=== PATIENT | male | born 1980 | race Caucasian/White ===

== ENCOUNTER 2017-05-26 18:42 | Emergency (ER) | payer OTHER ==
[2017-05-26] MEDS ORDERED: SODIUM CHLORIDE 0.9% 1,000 ML IV STA (19:10)
--- NOTE | 2017-05-26 19:16 | ED ---
General Adult HPI - General Chief complaint: Chest Pain Stated complaint: Chest Pain Time Seen by Provider: 05/26/17 18:59 Source: patient, RN notes reviewed Mode of arrival: ambulatory Limitations: no limitations - History of Present Illness Initial comments: Chief complaint history of present illness is a 37-year-old male here with a complaint of nondescript and nonspecific chest discomfort mainly to the left side of his chest. The patient is currently on Z-Caleb and high dose steroids for an upper respiratory tract infection. He reports he has occasional on- again off-again sweats and discomfort to the left ear. No nausea no vomiting. - Related Data Home Medications Medication Instructions Recorded Confirmed Atenolol [Tenormin] 25 mg PO QAM 03/03/14 05/26/17 Lisinopril-Hctz 20-12.5 mg 1 tab PO QAM 03/03/14 05/26/17 [Zestoretic 20-12.5] Omeprazole [PriLOSEC] 20 mg PO QAM 03/03/14 05/26/17 Albuterol Inhaler [Ventolin Hfa 1 - 2 puff INHALATION RT-Q4H PRN 04/20/14 Inhaler] traMADol HCl [Ultram] 50 mg PO Q6H PRN 01/31/15 05/26/17 Fluticasone Nasal [place] [Flonase 2 sprays EA NOSTRIL DAILY PRN 05/03/15 05/26/17 Nasal [place]] Ibuprofen [Motrin] 800 mg PO Q8HR PRN 05/03/15 05/26/17 Acetaminophen Tab [Tylenol Tab] 500 - 1,000 mg PO Q4H PRN 05/26/17 05/26/17 Albuterol Nebulized [Ventolin 2.5 mg INHALATION RT-Q4H PRN 05/26/17 05/26/17 Nebulized] Cetirizine HCl [Zyrtec] 10 mg PO DAILY PRN 05/26/17 05/26/17 Fluticasone/Salmeterol [Advair 1 puff INHALATION RT-BID 05/26/17 05/26/17 500-50 Diskus] Montelukast [Singulair] 10 mg PO DAILY 05/26/17 05/26/17 Allergies Allergy/AdvReac Type Severity Reaction Status Date / Time No Known Allergies Allergy Verified 05/26/17 19:37 Review of Systems ROS Statement: Those systems with pertinent positive or pertinent negative responses have been documented in the HPI. Review of systems. No headache or visual acuity changes. On-again off-again discomfort and pressure to the left side of his chest for approximately 4 days. No nausea no vomiting no diarrhea. Occasional diaphoresis. Occasional discomfort because of the left side of his head. No neuro deficits. All systems were reviewed. Past medical problems significant for asthma, GERD, hypertension, sleep apnea with CPAP. Rectal bleeding in the past. Surgeries include EGD, colonoscopy, cholecystectomy. Patient has no known ALLERGIES. He does smoke strongly encouraged stop. Family history, patient was adopted. ROS Other: All systems not noted in ROS Statement are negative. Past Medical History Past Medical History: Asthma, GERD/Reflux, Hypertension, Sleep Apnea/CPAP/BIPAP Additional Past Medical History / Comment(s): rectal bleeding, degenerative disc disease, arthritis History of Any Multi-Drug Resistant Organisms: None Reported Past Surgical History: Cholecystectomy Additional Past Surgical History / Comment(s): EGD/Colonoscopy, pain clinic procedure Past Anesthesia/Blood Transfusion Reactions: Motion Sickness Additional Past Anesthesia/Blood Transfusion Reaction / Comment(s): adopted- family hx unknown Past Psychological History: Depression Smoking Status: Current every day smoker Past Alcohol Use History: None Reported Past Drug Use History: None Reported - Past Family History Mother History Unknown: Yes Additional Family Medical History / Comment(s): client states he was adopted Father Family Medical History: Unable to Obtain Additional Family Medical History / Comment(s): client states he was adopted General Exam - General Exam Comments Initial Comments: General: The patient is awake and alert, here because he's not been feeling well for 3 or 4 days. Currently being treated with a Z-Caleb and steroids for his asthma and upper respiratory tract infectionbronchitis. Vital signs temperature 98.3 pulse 89 respiratory rate 20 pulse ox 99% room air blood pressure 153/71 Eye: Pupils are equal, round and reactive to light, extra-ocular movements are intact ; there is normal conjunctiva bilaterally. No signs of icterus. Ears, nose, mouth and throat: There are moist mucous membranes and no oral lesions. Neck: The neck is supple, there is no tenderness , no anterior cervical lymphadenopathy. Cardiovascular: There is a regular rate and rhythm. No murmur, rub or gallop is appreciated. Respiratory: Lungs are clear to auscultation, respirations are non-labored, breath sounds are equal. No wheezes, stridor, rales, or rhonchi. Gastrointestinal: Soft, non-distended, non-tender abdomen without masses or organomegaly noted. There is no rebound or guarding present. No CVA tenderness. Bowel sounds are unremarkable. palpable lipomas in several areas over the abdomen. The patient is morbidly obese weighs in excess of 330 pounds Back: No complaint of back pain. Musculoskeletal: Normal ROM, no tenderness, There is no pedal edema. There is no calf tenderness or swelling. Sensation intact. Pulses equal bilaterally 2+. Neurological: No neuro deficits Skin: Skin is warm and dry and no rashes or lesions are noted. Limitations: no limitations Course Vital Signs 05/26/17 05/26/17 18:55 19:02 Temperature 98.3 F Pulse Rate 89 Pulse Rate [ 80 Right Radial] Respiratory 20 Rate Blood Pressure 153/71 O2 Sat by Pulse 99 Oximetry EKG Findings - EKG Comments: EKG Findings:: EKG was done and reviewed at 1902 showing normal sinus rhythm no acute ST elevation no ectopy no ischemic changes. Rate 70. It was 154 QRS 96 QT [address] Alves Medical Decision Making - Medical Decision Making Medical decision making; patient's white count is elevated at 17,000, hemoglobin 16 hematocrit of 47.9. INR 1.0, potassium 3.6. Glucose elevated at 314. Patient's BUN is 20 creatinine 0.8 GFR greater than 60. Troponin less than 0.012 and amylase lipase normal limits. X-ray of the chest was done AP and lateral view and reviewed by radiologist findings include there is no focal airspace opacity, pleural effusion, or pneumothorax seen. Cardiac silhouette size within normal limits. The osseous structures are intact. Impression no acute cardiopulmonary process. As read by Dr. Cordova Patient just finishing a Z-Caleb. He has 3 days ago with his prednisone. His blood sugar was discussed and the possibility of it being elevated because of the prednisone but he does have to be evaluated for diabetes mellitus this time. He states he feels better today than he has last 3 days. Admission was offered for observation for the evening but he states he has no discomfort does not want to stay follow-up with his family physician in 48 hours. Strongly advised return emergency room if he has any changes in his condition. - Lab Data Result diagrams: 05/26/17 19:48 05/26/17 19:48 Lab Results 05/26/17 05/26/17 05/26/17 Range/Units 19:48 19:48 19:48 WBC 17.1 H (3.8-10.6) k/uL RBC 4.94 (4.30-5.90) m/uL Hgb 16.2 (13.0-17.5) gm/dL Hct 47.9 (39.0-53.0) % MCV 97.1 (80.0-100.0) fL MCH 32.8 (25.0-35.0) pg MCHC 33.8 (31.0-37.0) g/dL RDW 13.7 (11.5-15.5) % Plt Count 339 (150-450) k/uL Neutrophils % 68 % Lymphocytes % 24 % Monocytes % 6 % Eosinophils % 1 % Basophils % 0 % Neutrophils # 11.6 H (1.3-7.7) k/uL Lymphocytes # 4.1 (1.0-4.8) k/uL Monocytes # 1.0 (0-1.0) k/uL Eosinophils # 0.1 (0-0.7) k/uL Basophils # 0.0 (0-0.2) k/uL PT (9.0-12.0) sec INR (<1.2) APTT (22.0-30.0) sec D-Dimer (<0.60) mg/L FEU Sodium 137 (137-145) mmol/L Potassium 3.6 (3.5-5.1) mmol/L Chloride 98 (98-107) mmol/L Carbon Dioxide 25 (22-30) mmol/L Anion Gap 14 mmol/L BUN 20 (9-20) mg/dL Creatinine 0.80 (0.66-1.25) mg/dL Est GFR (MDRD) Af Amer >60 (>60 ml/min/1.73 sqM) Est GFR (MDRD) Non-Af >60 (>60 ml/min/1.73 sqM) Glucose 314 H (74-99) mg/dL Calcium 8.8 (8.4-10.2) mg/dL Magnesium 1.8 (1.6-2.3) mg/dL Total Bilirubin 0.5 (0.2-1.3) mg/dL AST 25 (17-59) U/L ALT 46 (21-72) U/L Alkaline Phosphatase 87 (38-126) U/L Total Creatine Kinase 46 L (55-170) U/L CK-MB (CK-2) 0.7 (0.0-2.4) ng/mL CK-MB (CK-2) Rel Index 1.5 Troponin I <0.012 (0.000-0.034) ng/mL Total Protein 6.2 L (6.3-8.2) g/dL Albumin 3.9 (3.5-5.0) g/dL Amylase <30 L (30-110) U/L Lipase 81 (23-300) U/L 05/26/17 Range/Units 19:48 WBC (3.8-10.6) k/uL RBC (4.30-5.90) m/uL Hgb (13.0-17.5) gm/dL Hct (39.0-53.0) % MCV (80.0-100.0) fL MCH (25.0-35.0) pg MCHC (31.0-37.0) g/dL RDW (11.5-15.5) % Plt Count (150-450) k/uL Neutrophils % % Lymphocytes % % Monocytes % % Eosinophils % % Basophils % % Neutrophils # (1.3-7.7) k/uL Lymphocytes # (1.0-4.8) k/uL Monocytes # (0-1.0) k/uL Eosinophils # (0-0.7) k/uL Basophils # (0-0.2) k/uL PT 10.6 (9.0-12.0) sec INR 1.0 (<1.2) APTT 22.4 (22.0-30.0) sec D-Dimer 0.18 (<0.60) mg/L FEU Sodium (137-145) mmol/L Potassium (3.5-5.1) mmol/L Chloride (98-107) mmol/L Carbon Dioxide (22-30) mmol/L Anion Gap mmol/L BUN (9-20) mg/dL Creatinine (0.66-1.25) mg/dL Est GFR (MDRD) Af Amer (>60 ml/min/1.73 sqM) Est GFR (MDRD) Non-Af (>60 ml/min/1.73 sqM) Glucose (74-99) mg/dL Calcium (8.4-10.2) mg/dL Magnesium (1.6-2.3) mg/dL Total Bilirubin (0.2-1.3) mg/dL AST (17-59) U/L ALT (21-72) U/L Alkaline Phosphatase (38-126) U/L Total Creatine Kinase (55-170) U/L CK-MB (CK-2) (0.0-2.4) ng/mL CK-MB (CK-2) Rel Index Troponin I (0.000-0.034) ng/mL Total Protein (6.3-8.2) g/dL Albumin (3.5-5.0) g/dL Amylase (30-110) U/L Lipase (23-300) U/L Disposition Clinical Impression: Bronchitis, Atypical chest pain Disposition: HOME SELF-CARE Condition: Fair Instructions: Acute Bronchitis (ED), Chest Pain (ED) Additional Instructions: Complete all medications as prescribed by her family doctor. Follow-up with family doctor in the next 24-48 hours. Return emergency room to give any changes near condition. Referrals: Candelario Potter MD [Primary Care Provider] - 1-2 days Time of Disposition: 22:16
--- NOTE | 2017-05-26 19:40 | XR ---
EXAMINATION TYPE: XR chest 2V DATE OF EXAM: 05/26/2017 COMPARISON: 05/03/2015 HISTORY: Chest heaviness. History of hypertension and asthma. TECHNIQUE: Frontal and lateral views of the chest are obtained. FINDINGS: There is no focal air space opacity, pleural effusion, or pneumothorax seen. The cardiac silhouette size is within normal limits. The osseous structures are intact. IMPRESSION: No acute cardiopulmonary process.
[2017-05-26 19:57] LABS: Basophils % (A) 0 %; CH 34.3; CHCM 35.5; Eosinophils # (A) 0.1 k/uL (0-0.7); Eosinophils % (A) 1 %; HCT 47.9 % (39.0-53.0); HDW 2.45; HGB 16.2 gm/dL (13.0-17.5); Luc # (Auto) 0.27; Luc % (Auto) 2; Lymphocytes # (A) 4.1 k/uL (1.0-4.8); Lymphocytes % (A) 24 %; MCH 32.8 pg (25.0-35.0); MCHC 33.8 g/dL (31.0-37.0); MCV 97.1 fL (80.0-100.0); Mean Platelet Volume 7.8; Monocytes % (A) 6 %; Neutrophils # (A) 11.6 k/uL (1.3-7.7); Neutrophils % (A) 68 %; RBC 4.94 m/uL (4.30-5.90); RDW 13.7 % (11.5-15.5); WBC 17.1 k/uL (3.8-10.6); WBC (Perox) 17.74
[2017-05-26 20:09] LABS: ALT 46 U/L (21-72); AST 25 U/L (17-59); Alkaline Phosphatase 87 U/L (38-126); Amylase <30 U/L (30-110); Anion Gap 14 mmol/L; Blood Urea Nitrogen 20 mg/dL (9-20); Calcium 8.8 mg/dL (8.4-10.2); Carbon Dioxide 25 mmol/L (22-30); Chloride 98 mmol/L (98-107); Glucose 314 mg/dL (74-99); Magnesium 1.8 mg/dL (1.6-2.3); Non-African American GFR(MDRD) >60 (>60 ml/min/1.73 sqM); Potassium 3.6 mmol/L (3.5-5.1); Sodium 137 mmol/L (137-145); Total Bilirubin 0.5 mg/dL (0.2-1.3); Total Protein 6.2 g/dL (6.3-8.2)
[2017-05-26 20:13] LABS: Partial Thromboplastin Time 22.4 sec (22.0-30.0); Prothrombin Time 10.6 sec (9.0-12.0)
[2017-05-26 20:18] LABS: Creatine Kinase 46 U/L (55-170)
[2017-05-26 20:32] LABS: Creatine Kinase MB 0.7 ng/mL (0.0-2.4); Troponin I <0.012 ng/mL (0.000-0.034)
[2017-05-26 22:49] VITALS: BP 143/80; PULSE 65; RESP 18; TEMP 96.9
== END 2017-05-26 22:49 | disposition home or self-care (01) ==
LOC: EC 18:42
DX: J40 Bronchitis, not specified as acute or chronic (principal); R07.89 Other chest pain; D17.79 Benign lipomatous neoplasm of other sites; D72.829 Elevated white blood cell count, unspecified; R73.9 Hyperglycemia, unspecified; I10 Essential (primary) hypertension; K21.9 Gastro-esophageal reflux disease without esophagitis; J45.909 Unspecified asthma, uncomplicated; E66.01 Morbid (severe) obesity due to excess calories; F17.200 Nicotine dependence, unspecified, uncomplicated; Z79.51 Long term (current) use of inhaled steroids; Z79.899 Other long term (current) drug therapy; Z68.42 Body mass index [BMI] 45.0-49.9, adult
CPT/HCPCS: 36415; 71020; 80053; 82150; 82550; 82553; 83690; 83735; 84484; 85025; 85379; 85610; 85730; 93005; 96360; 96361; 99285

== ENCOUNTER 2018-01-27 15:32 | Inpatient (IN) | payer OTHER ==
[2018-01-27] MEDS ORDERED: SODIUM CHLORIDE 0.9% 1,000 ML IV STA ×2 (16:49)
[2018-01-27] MEDS ORDERED: ALBUTEROL NEBULIZED 2.5 MG/3 ML INHALATION STA ×2 (16:49→18:05)
[2018-01-27] MEDS ORDERED: methylPREDNISolone SOD SUCCI 125 MG/2 ML VIAL IV STA (16:49)
[2018-01-27] MEDS ORDERED: IPRATROPIUM 0.5 MG/2.5 ML NEBU INHALATION STA ×2 (16:49→18:05)
[2018-01-27] MEDS ORDERED: AZITHROMYCIN 500 MG in SODIUM CHLORIDE 0.9% 250 ML IVPB STA (16:52)
[2018-01-27 17:07] LABS: Basophils % (A) 0 %; Eosinophils % (A) 0 %; HCT 45.5 % (39.0-53.0); HGB 16.2 gm/dL (13.0-17.5); Lymphocytes # (A) 0.6 k/uL (1.0-4.8); Lymphocytes % (A) 6 %; MCH 32.8 pg (25.0-35.0); MCHC 35.5 g/dL (31.0-37.0); MCV 92.4 fL (80.0-100.0); Mean Platelet Volume 7.5; Monocytes # (A) 0.3 k/uL (0-1.0); Monocytes % (A) 3 %; Neutrophils # (A) 7.8 k/uL (1.3-7.7); Neutrophils % (A) 89 %; Platelet Count 200 k/uL (150-450); RBC 4.93 m/uL (4.30-5.90); RDW 13.2 % (11.5-15.5); WBC 8.8 k/uL (3.8-10.6)
--- NOTE | 2018-01-27 17:16 | XR ---
EXAMINATION TYPE: XR chest 1V portable DATE OF EXAM: 01/27/2018 COMPARISON: 05/26/2017 HISTORY: Short of breath TECHNIQUE: Single frontal view of the chest is obtained. FINDINGS: Heart and mediastinum are normal. Lungs are clear. Diaphragm is normal. Bony thorax is int act. IMPRESSION: Normal chest. There is clearing of a small infiltrate at the left lung base compared to old exam.
[2018-01-27 17:17] LABS: ALT 49 U/L (21-72); AST 35 U/L (17-59); Alkaline Phosphatase 94 U/L (38-126); Anion Gap 13 mmol/L; Blood Urea Nitrogen 15 mg/dL (9-20); Calcium 9.2 mg/dL (8.4-10.2); Carbon Dioxide 27 mmol/L (22-30); Chloride 96 mmol/L (98-107); Glucose 356 mg/dL (74-99); Magnesium 1.7 mg/dL (1.6-2.3); Potassium 4.2 mmol/L (3.5-5.1); Sodium 136 mmol/L (137-145); Total Bilirubin 0.4 mg/dL (0.2-1.3); Total Protein 6.8 g/dL (6.3-8.2)
[2018-01-27 17:25] LABS: D-Dimer 0.23 mg/L FEU (<0.60); Partial Thromboplastin Time 23.7 sec (22.0-30.0)
[2018-01-27 17:27] LABS: Creatine Kinase 71 U/L (55-170)
--- NOTE | 2018-01-27 17:38 | ED ---
General Adult HPI - General Chief complaint: Shortness of Breath Stated complaint: [place] Time Seen by Provider: 01/27/18 16:14 Source: patient, RN notes reviewed, old records reviewed Mode of arrival: ambulatory Limitations: no limitations - History of Present Illness Initial comments: This is a 37-year-old male to the ER for evaluation. Patient resents today for evaluation regards to shortness of breath severe shortness of breath no chest pain. Patient has history of severe asthma. States she's recently been on outpatient treatment with no improvement. Denies any fevers no recent travel history no sick contacts. Patient has no prior hospitalizations for asthma - Related Data Home Medications Medication Instructions Recorded Confirmed Lisinopril-Hctz 20-12.5 mg 1 tab PO QAM 03/03/14 01/27/18 [Zestoretic 20-12.5] Omeprazole [PriLOSEC] 20 mg PO QAM 03/03/14 01/27/18 Albuterol Inhaler [Ventolin Hfa 1 - 2 puff INHALATION RT-Q4H PRN 04/20/14 Inhaler] Fluticasone Nasal [place] [Flonase 2 sprays EA NOSTRIL DAILY PRN 05/03/15 01/27/18 Nasal [place]] Ibuprofen [Motrin] 800 mg PO Q8HR PRN 05/03/15 01/27/18 Albuterol Nebulized [Ventolin 2.5 mg INHALATION RT-Q4H PRN 05/26/17 01/27/18 Nebulized] Cetirizine HCl [Zyrtec] 10 mg PO DAILY PRN 05/26/17 01/27/18 Fluticasone/Salmeterol [Advair 1 puff INHALATION RT-BID 05/26/17 01/27/18 500-50 Diskus] Montelukast [Singulair] 10 mg PO DAILY 05/26/17 01/27/18 Atenolol [Tenormin] 50 mg PO DAILY 01/27/18 01/27/18 Azithromycin [Zithromax Z-pack] See Taper PO DIRECTED 01/27/18 01/27/18 glipiZIDE XL [Glucotrol Xl] 5 mg PO DAILY 01/27/18 01/27/18 predniSONE 40 mg PO DAILY 01/27/18 01/27/18 Allergies Allergy/AdvReac Type Severity Reaction Status Date / Time No Known Allergies Allergy Verified 01/27/18 16:32 Review of Systems ROS Statement: Those systems with pertinent positive or pertinent negative responses have been documented in the HPI. ROS Other: All systems not noted in ROS Statement are negative. Past Medical History Past Medical History: Asthma, COPD, GERD/Reflux, Hypertension, Sleep Apnea/CPAP/ BIPAP Additional Past Medical History / Comment(s): rectal bleeding, degenerative disc disease, arthritis History of Any Multi-Drug Resistant Organisms: None Reported Past Surgical History: Cholecystectomy Additional Past Surgical History / Comment(s): EGD/Colonoscopy, pain clinic procedure Past Anesthesia/Blood Transfusion Reactions: Motion Sickness Additional Past Anesthesia/Blood Transfusion Reaction / Comment(s): adopted- family hx unknown Past Psychological History: Depression Smoking Status: Current every day smoker Past Alcohol Use History: None Reported Past Drug Use History: None Reported - Past Family History Mother History Unknown: Yes Additional Family Medical History / Comment(s): client states he was adopted Father Family Medical History: Unable to Obtain Additional Family Medical History / Comment(s): client states he was adopted General Exam Limitations: no limitations General appearance: alert, in no apparent distress, anxious Head exam: Present: atraumatic, normocephalic, normal inspection Eye exam: Present: normal appearance, PERRL, EOMI. Absent: scleral icterus, conjunctival injection, periorbital swelling ENT exam: Present: normal exam, mucous membranes moist Neck exam: Present: normal inspection. Absent: tenderness, meningismus, lymphadenopathy Respiratory exam: Present: normal lung sounds bilaterally, wheezes. Absent: respiratory distress, rales, rhonchi, stridor Cardiovascular Exam: Present: regular rate, normal rhythm, tachycardia, normal heart sounds. Absent: systolic murmur, diastolic murmur, rubs, gallop, clicks GI/Abdominal exam: Present: soft, normal bowel sounds. Absent: distended, tenderness, guarding, rebound, rigid Extremities exam: Present: normal inspection, full ROM, normal capillary refill. Absent: tenderness, pedal edema, joint swelling, calf tenderness Back exam: Present: normal inspection Neurological exam: Present: alert, oriented X3, CN II-XII intact Psychiatric exam: Present: normal affect, normal mood Skin exam: Present: warm, dry, intact, normal color. Absent: rash Course Vital Signs 01/27/18 01/27/18 01/27/18 15:43 16:02 16:32 Temperature 99.3 F Pulse Rate 106 H 96 Respiratory 24 23 19 Rate Blood Pressure 126/70 172/83 O2 Sat by Pulse 87 L 98 Oximetry 01/27/18 01/27/18 01/27/18 17:31 17:44 17:53 Temperature Pulse Rate 94 92 94 Respiratory 19 Rate Blood Pressure 140/69 O2 Sat by Pulse 94 L Oximetry 01/27/18 17:59 Temperature Pulse Rate 98 Respiratory Rate Blood Pressure O2 Sat by Pulse Oximetry - Reevaluation(s) Reevaluation #1: 01/27/18 18:06 Patient has no improvement up prolonged breathing treatment, patient attempted airway from bathroom to bed and became severely hypoxic EKG Findings - EKG Comments: EKG Findings:: EKG shows normal sinus rhythm rate of 96, [place] 160, QRS 90, QTc 502 Medical Decision Making - Medical Decision Making 37 male the ER for evaluation of severe hypoxia secondary to COPD, asthma, history of smoking. Patient to be admitted continuous breathing treatments and steroids - Lab Data Result diagrams: 01/27/18 16:25 01/27/18 16:25 Lab Results 01/27/18 01/27/18 01/27/18 Range/Units 16:25 16:25 16:25 WBC 8.8 (3.8-10.6) k/uL RBC 4.93 (4.30-5.90) m/uL Hgb 16.2 (13.0-17.5) gm/dL Hct 45.5 (39.0-53.0) % MCV 92.4 (80.0-100.0) fL MCH 32.8 (25.0-35.0) pg MCHC 35.5 (31.0-37.0) g/dL RDW 13.2 (11.5-15.5) % Plt Count 200 (150-450) k/uL Neutrophils % 89 % Lymphocytes % 6 % Monocytes % 3 % Eosinophils % 0 % Basophils % 0 % Neutrophils # 7.8 H (1.3-7.7) k/uL Lymphocytes # 0.6 L (1.0-4.8) k/uL Monocytes # 0.3 (0-1.0) k/uL Eosinophils # 0.0 (0-0.7) k/uL Basophils # 0.0 (0-0.2) k/uL PT (9.0-12.0) sec INR (<1.2) APTT (22.0-30.0) sec D-Dimer (<0.60) mg/L FEU Sodium 136 L (137-145) mmol/L Potassium 4.2 (3.5-5.1) mmol/L Chloride 96 L (98-107) mmol/L Carbon Dioxide 27 (22-30) mmol/L Anion Gap 13 mmol/L BUN 15 (9-20) mg/dL Creatinine 0.59 L (0.66-1.25) mg/dL Est GFR (CKD-EPI)AfAm >90 (>60 ml/min/1.73 sqM) Est GFR (CKD-EPI)NonAf >90 (>60 ml/min/1.73 sqM) Glucose 356 H (74-99) mg/dL Calcium 9.2 (8.4-10.2) mg/dL Magnesium 1.7 (1.6-2.3) mg/dL Total Bilirubin 0.4 (0.2-1.3) mg/dL AST 35 (17-59) U/L ALT 49 (21-72) U/L Alkaline Phosphatase 94 (38-126) U/L Total Creatine Kinase 71 (55-170) U/L CK-MB (CK-2) 0.8 (0.0-2.4) ng/mL CK-MB (CK-2) Rel Index 1.1 Troponin I <0.012 (0.000-0.034) ng/mL NT-Pro-B Natriuret Pep pg/mL Total Protein 6.8 (6.3-8.2) g/dL Albumin 4.0 (3.5-5.0) g/dL 01/27/18 01/27/18 Range/Units 16:25 16:25 WBC (3.8-10.6) k/uL RBC (4.30-5.90) m/uL Hgb (13.0-17.5) gm/dL Hct (39.0-53.0) % MCV (80.0-100.0) fL MCH (25.0-35.0) pg MCHC (31.0-37.0) g/dL RDW (11.5-15.5) % Plt Count (150-450) k/uL Neutrophils % % Lymphocytes % % Monocytes % % Eosinophils % % Basophils % % Neutrophils # (1.3-7.7) k/uL Lymphocytes # (1.0-4.8) k/uL Monocytes # (0-1.0) k/uL Eosinophils # (0-0.7) k/uL Basophils # (0-0.2) k/uL PT 10.0 (9.0-12.0) sec INR 1.0 (<1.2) APTT 23.7 (22.0-30.0) sec D-Dimer 0.23 (<0.60) mg/L FEU Sodium (137-145) mmol/L Potassium (3.5-5.1) mmol/L Chloride (98-107) mmol/L Carbon Dioxide (22-30) mmol/L Anion Gap mmol/L BUN (9-20) mg/dL Creatinine (0.66-1.25) mg/dL Est GFR (CKD-EPI)AfAm (>60 ml/min/1.73 sqM) Est GFR (CKD-EPI)NonAf (>60 ml/min/1.73 sqM) Glucose (74-99) mg/dL Calcium (8.4-10.2) mg/dL Magnesium (1.6-2.3) mg/dL Total Bilirubin (0.2-1.3) mg/dL AST (17-59) U/L ALT (21-72) U/L Alkaline Phosphatase (38-126) U/L Total Creatine Kinase (55-170) U/L CK-MB (CK-2) (0.0-2.4) ng/mL CK-MB (CK-2) Rel Index Troponin I (0.000-0.034) ng/mL NT-Pro-B Natriuret Pep 20 pg/mL Total Protein (6.3-8.2) g/dL Albumin (3.5-5.0) g/dL - Radiology Data Radiology results: report reviewed (Chest x-rays negative), image reviewed Critical Care Time Critical Care Time: Yes Total Critical Care Time: 31 Disposition Clinical Impression: Bronchitis, Acute bronchitis with bronchospasm, Tachypnea, Hypoxia, Acute exacerbation of chronic obstructive airways disease, Asthma with status asthmaticus Disposition: ADMITTED IP TO THIS HOSP Condition: Serious Referrals: Carlos Henry MD [Primary Care Provider] - 1-2 days
[2018-01-27 17:40] LABS: Creatine Kinase MB 0.8 ng/mL (0.0-2.4); Troponin I <0.012 ng/mL (0.000-0.034)
[2018-01-27 18:45] LABS: Glucose,Whole Blood 448 mg/dL (75-99)
[2018-01-27] MEDS ORDERED: INSULIN REGULAR 100 UNIT/ML VIAL IV ONE (19:00)
[2018-01-27] MEDS: SODIUM CHLORIDE 0.9% 1,000 ML IV SCH ×2 (19:04→22:46)
[2018-01-27] MEDS: IPRATROPIUM-ALBUTEROL 3 ML NEB INHALATION SCH (19:56)
[2018-01-27 20:28] LABS: Glucose,Whole Blood 456 mg/dL (75-99)
[2018-01-27] MEDS: INSULIN ASPART 100 UNIT/ML 1 ML 10 ML VIAL SQ SCH (21:54)
[2018-01-27] MEDS ORDERED: INSULIN ASPART 100 UNIT/ML 1 ML 10 ML VIAL SQ ONE ×2 (22:00→23:47)
[2018-01-27] MEDS: PANTOPRAZOLE 40 MG/10 ML VIAL IVP SCH (22:20)
[2018-01-27] MEDS: INSULIN DETEMIR 100 UNIT/ML 10 ML VIAL SQ SCH (22:20)
[2018-01-27] MEDS: SYMBICORT 160-4.5 MCG INHALER INHALATION SCH (23:31)
[2018-01-27] MEDS: IPRATROPIUM-ALBUTEROL 3 ML NEB INHALATION PRN (23:31)
[2018-01-27 23:43] LABS: Glucose,Whole Blood 411 mg/dL (75-99)
[2018-01-28] MEDS: methylPREDNISolone SOD SUCCI 125 MG/2 ML VIAL IV SCH ×2 (00:12→05:35)
[2018-01-28 01:17] LABS: Glucose,Whole Blood 340 mg/dL (75-99)
[2018-01-28] MEDS ORDERED: INSULIN ASPART 100 UNIT/ML 1 ML 10 ML VIAL SQ ONE (01:17)
[2018-01-28 04:19] LABS: Glucose,Whole Blood 267 mg/dL (75-99)
[2018-01-28] MEDS: IPRATROPIUM-ALBUTEROL 3 ML NEB INHALATION SCH ×4 (05:53→19:36)
[2018-01-28 07:10] LABS: Glucose,Whole Blood 251 mg/dL (75-99)
[2018-01-28 07:12] LABS: Basophils % (A) 0 %; Eosinophils % (A) 0 %; HCT 45.9 % (39.0-53.0); HGB 15.9 gm/dL (13.0-17.5); Lymphocytes # (A) 0.6 k/uL (1.0-4.8); Lymphocytes % (A) 11 %; MCH 32.4 pg (25.0-35.0); MCHC 34.5 g/dL (31.0-37.0); MCV 93.8 fL (80.0-100.0); Monocytes # (A) 0.3 k/uL (0-1.0); Monocytes % (A) 4 %; Neutrophils # (A) 4.7 k/uL (1.3-7.7); Neutrophils % (A) 83 %; Platelet Count 207 k/uL (150-450); WBC 5.7 k/uL (3.8-10.6)
[2018-01-28 07:27] LABS: Anion Gap 11 mmol/L; Blood Urea Nitrogen 14 mg/dL (9-20); Calcium 8.7 mg/dL (8.4-10.2); Carbon Dioxide 28 mmol/L (22-30); Chloride 104 mmol/L (98-107); Glucose 249 mg/dL (74-99); Potassium 4.7 mmol/L (3.5-5.1); Sodium 143 mmol/L (137-145)
[2018-01-28] MEDS ORDERED: INSULIN ASPART 100 UNIT/ML 1 ML 10 ML VIAL SQ SCH (07:30)
[2018-01-28] MEDS: SYMBICORT 160-4.5 MCG INHALER INHALATION SCH ×2 (07:39→19:34)
[2018-01-28] MEDS: INSULIN ASPART 100 UNIT/ML 1 ML 10 ML VIAL SQ SCH ×4 (08:02→21:21)
[2018-01-28] MEDS: AZITHROMYCIN 500 MG TAB PO SCH (08:03)
[2018-01-28] MEDS: NICOTINE 21MG/24HR PATCH TRANSDERM SCH (08:03)
--- NOTE | 2018-01-28 10:50 | P.HPIM ---
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 Patient the symptoms are brought up by season change and upper respiratory illness leading to bronchitis. Review of Systems REVIEW OF SYSTEMS: CONSTITUTIONAL: No fever, no malaise, no fatigue. HEENT: No recent visual problems or hearing problems. Denied any sore throat. CARDIOVASCULAR: No chest pain, orthopnea, PND, no palpitations, no syncope. PULMONARY: As mentioned in HPI GASTROINTESTINAL: No diarrhea, no nausea, no vomiting, no abdominal pain. Normoactive bowel sounds. NEUROLOGICAL: No headaches, no weakness, no numbness. HEMATOLOGICAL: Denies any bleeding or petechiae. GENITOURINARY: Denies any burning micturition, frequency, or urgency. MUSCULOSKELETAL/RHEUMATOLOGICAL: Denies any joint pain, swelling, or any muscle pain. ENDOCRINE: Denies any polyuria or polydipsia. The rest of the 14-point review of systems is negative. Past Medical History Past Medical History: Asthma, COPD, Diabetes Mellitus, GERD/Reflux, Hypertension , Pneumonia, Sleep Apnea/CPAP/BIPAP Additional Past Medical History / Comment(s): rectal bleeding(internal hemorrhoids), degenerative disc disease, arthritis, no cpap used History of Any Multi-Drug Resistant Organisms: None Reported Past Surgical History: Cholecystectomy Additional Past Surgical History / Comment(s): EGD/Colonoscopy, pain clinic procedure Past Anesthesia/Blood Transfusion Reactions: Motion Sickness Additional Past Anesthesia/Blood Transfusion Reaction / Comment(s): adopted- family hx unknown Smoking Status: Current every day smoker - Past Family History Mother History Unknown: Yes Additional Family Medical History / Comment(s): client states he was adopted Father Family Medical History: Unable to Obtain Additional Family Medical History / Comment(s): client states he was adopted Medications and Allergies Home Medications Medication Instructions Recorded Confirmed Type Lisinopril-Hctz 20-12.5 mg 1 tab PO QAM 03/03/14 01/27/18 History [Zestoretic 20-12.5] Omeprazole [PriLOSEC] 20 mg PO QAM 03/03/14 01/27/18 History Albuterol Inhaler [Ventolin Hfa 1 - 2 puff INHALATION RT-Q4H PRN 04/20/14 History Inhaler] Fluticasone Nasal [place] [Flonase 2 sprays EA NOSTRIL DAILY PRN 05/03/15 History Nasal [place]] Ibuprofen [Motrin] 800 mg PO Q8HR PRN 05/03/15 01/27/18 History Albuterol Nebulized [Ventolin 2.5 mg INHALATION RT-Q4H PRN 05/26/17 01/27/18 History Nebulized] Cetirizine HCl [Zyrtec] 10 mg PO DAILY PRN 05/26/17 01/27/18 History Fluticasone/Salmeterol [Advair 1 puff INHALATION RT-BID 05/26/17 01/27/18 History 500-50 Diskus] Montelukast [Singulair] 10 mg PO DAILY 05/26/17 01/27/18 History Atenolol [Tenormin] 50 mg PO DAILY 01/27/18 01/27/18 History Azithromycin [Zithromax Z-pack] See Taper PO DIRECTED 01/27/18 01/27/18 History glipiZIDE XL [Glucotrol Xl] 5 mg PO DAILY 01/27/18 01/27/18 History predniSONE 40 mg PO DAILY 01/27/18 01/27/18 History Allergies Allergy/AdvReac Type Severity Reaction Status Date / Time No Known Allergies Allergy Verified 01/27/18 16:32 Physical Exam Vitals: Vital Signs Temp Pulse Pulse Resp BP BP Pulse Ox 01/28/18 09:00 71 01/28/18 07:00 96.8 F L 74 20 130/83 92 L 01/28/18 06:08 74 01/28/18 05:55 74 01/27/18 23:38 96 01/27/18 23:27 96 01/27/18 22:43 18 93 L 01/27/18 22:42 97 18 147/72 88 L 01/27/18 21:27 98.2 F 101 H 20 142/76 91 L 01/27/18 20:08 92 01/27/18 19:58 93 01/27/18 17:59 98 01/27/18 17:53 94 19 140/69 94 L 01/27/18 17:44 92 01/27/18 17:31 94 01/27/18 16:32 96 19 172/83 98 01/27/18 16:02 23 01/27/18 15:43 99.3 F 106 H 24 126/70 87 L Intake and Output 01/27/18 01/28/18 01/28/18 22:59 06:59 14:59 Intake Total 350 500 Balance 350 500 Intake: IV 500 Sodium Chloride 0.9% 1, 500 000 ml @ 100 mls/hr IV . Q10H J [facility] Rx#:[id number] Oral 350 Other: Voiding Method Toilet Toilet # Voids 1 1 Weight 138.346 kg PHYSICAL EXAMINATION: GENERAL: The patient is alert and oriented x3, not in any acute distress. Well developed, well nourished. HEENT: Pupils are round and equally reacting to light. EOMI. No scleral icterus. No conjunctival pallor. Normocephalic, atraumatic. No pharyngeal erythema. No thyromegaly. CARDIOVASCULAR: S1 and S2 present. No murmurs, rubs, or gallops. PULMONARY: Significant limited air entry into bilateral lung [place] minimal expiratory wheezing was appreciated no crackles were appreciated. ABDOMEN: Soft, nontender, nondistended, normoactive bowel sounds. No palpable organomegaly. MUSCULOSKELETAL: No joint swelling or deformity. EXTREMITIES: No cyanosis, clubbing, or pedal edema. NEUROLOGICAL: Gross neurological examination did not reveal any focal deficits. SKIN: No rashes. Results CBC & Chem 7: 01/28/18 06:36 01/28/18 06:36 Labs: Abnormal Lab Results - Last 24 Hours (Table) 01/27/18 01/27/18 01/27/18 Range/Units 16:25 16:25 18:42 Neutrophils # 7.8 H (1.3-7.7) k/uL Lymphocytes # 0.6 L (1.0-4.8) k/uL Sodium 136 L (137-145) mmol/L Chloride 96 L (98-107) mmol/L Creatinine 0.59 L (0.66-1.25) mg/dL Glucose 356 H (74-99) mg/dL POC Glucose (mg/dL) 448 H (75-99) mg/dL 01/27/18 01/27/18 01/28/18 Range/Units 20:23 23:41 01:15 Neutrophils # (1.3-7.7) k/uL Lymphocytes # (1.0-4.8) k/uL Sodium (137-145) mmol/L Chloride (98-107) mmol/L Creatinine (0.66-1.25) mg/dL Glucose (74-99) mg/dL POC Glucose (mg/dL) 456 H 411 H 340 H (75-99) mg/dL 01/28/18 01/28/18 01/28/18 Range/Units 04:16 06:36 06:36 Neutrophils # (1.3-7.7) k/uL Lymphocytes # 0.6 L (1.0-4.8) k/uL Sodium (137-145) mmol/L Chloride (98-107) mmol/L Creatinine 0.50 L (0.66-1.25) mg/dL Glucose 249 H (74-99) mg/dL POC Glucose (mg/dL) 267 H (75-99) mg/dL 01/28/18 Range/Units 07:07 Neutrophils # (1.3-7.7) k/uL Lymphocytes # (1.0-4.8) k/uL Sodium (137-145) mmol/L Chloride (98-107) mmol/L Creatinine (0.66-1.25) mg/dL Glucose (74-99) mg/dL POC Glucose (mg/dL) 251 H (75-99) mg/dL Thrombosis Risk Factor Assmnt - Choose All That Apply Any of the Below Risk Factors Present?: Yes Each Factor Represents 1 point: Abnormal pulmonary function (COPD), Obesity ( BMI >25) Other Risk Factors: No Other congenital or acquired thrombophilia - If yes, enter type in comment: No Thrombosis Risk Factor Assessment Total Risk Factor Score: 2 Thrombosis Risk Factor Assessment Level: Low Risk Assessment and Plan Plan: -Acute hypercapnic respiratory failure: Most probably Secondary to COPD exacerbation with contribution from the 60 lung disease and sleep apnea, patient does have history of asthma and seasonal ALLERGIES. Patient is on systemic steroids because of the elevated blood sugars are cut down the IV steroids to 40 twice a day and continue with inhalational treatments. -Gastroesophageal reflux disease: Patient is on Prilosec which will be continued -Hypertension patient will be resumed on home medication which is lisinopril and hydrochlorothiazide combination -Multiple seasonal ALLERGIES -Type 2 diabetes mellitus highly elevated blood sugars patient will be temporarily on insulin regimen with long-acting insulin and sliding scale for systemic steroids as his blood sugars are expected to go higher with the systemic strides -Morbid obesity sleep apnea: Counseling regarding weight loss was provided and counseling regarding nicotine cessation lifestyle modifications was provided
[2018-01-28 11:21] LABS: Glucose,Whole Blood 315 mg/dL (75-99)
[2018-01-28] MEDS: PANTOPRAZOLE 40 MG/10 ML VIAL IVP SCH (12:27)
[2018-01-28] MEDS ORDERED: methylPREDNISolone SOD SUCCI 125 MG/2 ML VIAL IV SCH (16:00)
--- NOTE | 2018-01-28 16:51 | P.CNPUL ---
History of Present Illness Consult date: 01/28/18 Requesting physician: Everton Sainz Reason for consult: dyspnea, hypoxemia, other Chief complaint: Hypoxemic respiratory failure, shortness of breath, exacerbation of asthma History of present illness: Kvng is a 37-year-old white male patient of Dr. Henry who presented to the emergency department on 01/27/2018 at 1737 with complaints of several days' history of increasing shortness of breath. His symptoms started with an upper respiratory infection, sinus congestion, green nasal drainage on Thursday. Patient's was seen by a nurse practitioner Violetta Perrin at Dr. Henry's office, and was given a prescription of prednisone, and azithromycin. However by Thursday patient started to experience fever and chills, progressive weakness, progressive shortness of breath. Patient returned to his PCPs office on Thursday, and was found to have a pulse ox of 82% on room air, and was directed to the emergency room for further evaluation and treatment. Patient is a current smoker, smokes a pack a day, for 18 years. He was diagnosed with bronchial asthma in his childhood, was never intubated, but was hospitalized 3- 4 times in his lifetime with the last time being 2 years ago. His common triggers include seasonal change, exercise, dust, cold. He borrows his mom's nebulizer machine, he has a Flonase nasal spray, Ventolin inhaler, and Advair 500/50, and albuterol nebulized treatments for his maintenance medications. He is also on Singulair 10 mg by mouth daily and omeprazole 20 mg by mouth every morning. 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 Also has underlying history of sleep apnea, but does not use CPAP machine because he had no insurance coverage at that time. His last polysomnography test was on 07/04/2014, at that time his apnea/hypopnea score index was 16.2 with lowest oxygen saturation of 75%. Patient has a history of morbid obesity, and has been evaluated for Sravan-en-Y gastric bypass surgery. Other medical history includes osteoarthritis of the lower back secondary to morbid obesity, bilateral knees, hypertension, GERD/reflux, depression, chronic sinusitis. Chest x-ray completed in in the emergency room on 01/27/2018 shows normal chest. EKG showed normal sinus rhythm. Afebrile, did have subjective fever or chills at home. Was hypoxemic on presentation with O2 sat at 87% on room air, currently on 4 L per nasal cannula with O2 sat 95%. Influenza screen was negative, lab work was negative for any evidence of leukocytosis, WBC is 8.8, d- dimer was negative at 0.23, no coagulopathy. Sodium is 136, potassium is 4.2, chloride is 96, BUN is 15, creatinine 0.59. Patient's glucose was 356 on admission. Liver enzymes were all within normal limits, troponins and cardiac enzymes were negative 1, proBNP was 20. Lung sounds show very diminished air entry bilaterally, hardly any air movement noted over left lower lung. There is prolongation of the expiratory phase noted. Patient denies any chest wall pain, does have a congested loose cough, but unable to bring up any sputum. Was started on IV Zithromax, nebulized treatments, Symbicort, IV Solu-Medrol at 40 mg IV twice a day. Patient was given a liter bolus of 0.9 normal saline in the emergency room, and his maintenance IV fluids are 0.9 normal saline at a rate of 100 ML per hour. Currently is awake and alert, appears comfortable at rest, denies any significant dyspnea at rest. Review of Systems All systems: negative Constitutional: Denies chills, Denies fever Eyes: denies blurred vision, denies pain Ears, nose, mouth and throat: Reports nasal congestion, Reports nasal discharge , Denies headache, Denies sore throat Cardiovascular: Denies chest pain, Denies shortness of breath Respiratory: Reports congestion, Reports dyspnea, Reports sleep apnea, Denies cough Gastrointestinal: Denies abdominal pain, Denies diarrhea, Denies nausea, Denies vomiting Musculoskeletal: Denies myalgias Integumentary: Denies pruritus, Denies rash Neurological: Denies numbness, Denies weakness Psychiatric: Denies anxiety, Denies depression Endocrine: Denies fatigue, Denies weight change Past Medical History Past Medical History: Asthma, Diabetes Mellitus, GERD/Reflux, Hypertension, Pneumonia, Sleep Apnea/CPAP/BIPAP Additional Past Medical History / Comment(s): rectal bleeding(internal hemorrhoids), degenerative disc disease, arthritis, no cpap used History of Any Multi-Drug Resistant Organisms: None Reported Past Surgical History: Cholecystectomy Additional Past Surgical History / Comment(s): EGD/Colonoscopy, pain clinic procedure Past Anesthesia/Blood Transfusion Reactions: Motion Sickness Additional Past Anesthesia/Blood Transfusion Reaction / Comment(s): adopted- family hx unknown Past Psychological History: Depression Smoking Status: Current every day smoker - Past Family History Mother History Unknown: Yes Additional Family Medical History / Comment(s): client states he was adopted Father Family Medical History: Unable to Obtain Additional Family Medical History / Comment(s): client states he was adopted Medications and Allergies Home Medications Medication Instructions Recorded Confirmed Type Lisinopril-Hctz 20-12.5 mg 1 tab PO QAM 03/03/14 01/27/18 History [Zestoretic 20-12.5] Omeprazole [PriLOSEC] 20 mg PO QAM 03/03/14 01/27/18 History Albuterol Inhaler [Ventolin Hfa 1 - 2 puff INHALATION RT-Q4H PRN 04/20/14 History Inhaler] Fluticasone Nasal [place] [Flonase 2 sprays EA NOSTRIL DAILY PRN 05/03/15 History Nasal [place]] Ibuprofen [Motrin] 800 mg PO Q8HR PRN 05/03/15 01/27/18 History Albuterol Nebulized [Ventolin 2.5 mg INHALATION RT-Q4H PRN 05/26/17 01/27/18 History Nebulized] Cetirizine HCl [Zyrtec] 10 mg PO DAILY PRN 05/26/17 01/27/18 History Fluticasone/Salmeterol [Advair 1 puff INHALATION RT-BID 05/26/17 01/27/18 History 500-50 Diskus] Montelukast [Singulair] 10 mg PO DAILY 05/26/17 01/27/18 History Atenolol [Tenormin] 50 mg PO DAILY 01/27/18 01/27/18 History Azithromycin [Zithromax Z-pack] See Taper PO DIRECTED 01/27/18 01/27/18 History glipiZIDE XL [Glucotrol Xl] 5 mg PO DAILY 01/27/18 01/27/18 History predniSONE 40 mg PO DAILY 01/27/18 01/27/18 History Allergies Allergy/AdvReac Type Severity Reaction Status Date / Time No Known Allergies Allergy Verified 01/27/18 16:32 Physical Exam Vitals: Vital Signs Temp Pulse Pulse Resp BP BP Pulse Ox 01/28/18 15:30 76 01/28/18 15:20 76 01/28/18 15:10 97.6 F 80 20 145/72 95 01/28/18 11:26 80 01/28/18 11:12 80 01/28/18 10:59 81 24 140/81 90 L 01/28/18 09:00 71 01/28/18 07:00 96.8 F L 74 20 130/83 92 L 01/28/18 06:08 74 01/28/18 05:55 74 01/27/18 23:38 96 01/27/18 23:27 96 01/27/18 22:43 18 93 L 01/27/18 22:42 97 18 147/72 88 L 01/27/18 21:27 98.2 F 101 H 20 142/76 91 L 01/27/18 20:08 92 01/27/18 19:58 93 01/27/18 17:59 98 01/27/18 17:53 94 19 140/69 94 L 01/27/18 17:44 92 01/27/18 17:31 94 01/27/18 16:32 96 19 172/83 98 Intake and Output 01/28/18 01/28/18 01/28/18 06:59 14:59 22:59 Intake Total 500 1200 Balance 500 1200 Intake: IV 500 600 Sodium Chloride 0.9% 1, 500 600 000 ml @ 100 mls/hr IV . Q10H [facility] Rx#:[id number] Oral 600 Other: Voiding Method Toilet # Voids 1 3 GENERAL EXAM: Alert, pleasant 37-year-old obese white male, comfortable in no apparent distress. HEAD: Normocephalic/atraumatic. EYES: Normal reaction of pupils, equal size. Conjunctiva pink, sclera white. NOSE: Clear with pink turbinates. THROAT: No erythema or exudates. NECK: No masses, no JVD, no thyroid enlargement, no adenopathy. CHEST: No chest wall deformity. Symmetrical expansion. LUNGS: Decreased air movement noted bilaterally, more so over left lower lobe. Prolongation of the expiratory phase, patient has congested nonproductive cough. CVS: Regular rate and rhythm, normal S1 and S2, no gallops, no murmurs, no rubs ABDOMEN: Soft, nontender. No hepatosplenomegaly, normal bowel sounds, no guarding or rigidity. EXTREMITIES: No clubbing, no edema, no cyanosis, 2+ pulses and upper and lower extremities. MUSCULOSKELETAL: Muscle strength and tone normal. SPINE: No scoliosis or deformity SKIN: No rashes CENTRAL NERVOUS SYSTEM: Alert and oriented -3. No focal deficits, tone is normal in all 4 extremities. PSYCHIATRIC: Alert and oriented -3. Appropriate affect. Intact judgment and insight. Results - Laboratory Findings CBC and BMP: 01/28/18 06:36 01/28/18 06:36 PT/INR, D-dimer PT 10.0 sec (9.0-12.0) 01/27/18 16:25 INR 1.0 (<1.2) 01/27/18 16:25 D-Dimer 0.23 mg/L FEU (<0.60) 01/27/18 16:25 Abnormal lab findings: Abnormal Labs 01/27/18 01/27/18 01/27/18 16:25 16:25 18:42 Neutrophils # 7.8 H Lymphocytes # 0.6 L Sodium 136 L Chloride 96 L Creatinine 0.59 L Glucose 356 H POC Glucose (mg/dL) 448 H 01/27/18 01/27/18 01/28/18 20:23 23:41 01:15 Neutrophils # Lymphocytes # Sodium Chloride Creatinine Glucose POC Glucose (mg/dL) 456 H 411 H 340 H 01/28/18 01/28/18 01/28/18 04:16 06:36 06:36 Neutrophils # Lymphocytes # 0.6 L Sodium Chloride Creatinine 0.50 L Glucose 249 H POC Glucose (mg/dL) 267 H 01/28/18 01/28/18 07:07 11:19 Neutrophils # Lymphocytes # Sodium Chloride Creatinine Glucose POC Glucose (mg/dL) 251 H 315 H - Diagnostic Findings Chest x-ray: report reviewed Additional studies: Twelve-lead EKG reviewed Assessment and Plan Plan: Assessment: #1. Acute hypoxic respiratory failure secondary to acute COPD exacerbation and exacerbation of mild intermittent bronchial asthma, chest x-ray did not show any evidence of pneumonia #2. Steroid-induced hyperglycemia #3. Chronic sinusitis #4. Sleep apnea, noncompliant with CPAP therapy, related to lack of insurance coverage at that time #5. History of mild intermittent asthma #6. COPD, the severity of which is unknown at this time #7. Morbid obesity, currently undergoing evaluation for Sravan-en-Y gastric bypass surgery #8. GERD/reflux #9. Osteoarthritis of bilateral knees, and lower back related to morbid obesity #10. Diabetes mellitus type 2 #11. Hypertension #12. Chronic pain related to osteoarthritis #13. Nicotine dependence, ongoing, carries [id number] smoking history. Smoking 1 pack a day currently #14. Multiple seasonal ALLERGIES Plan: Continue with current plan of treatment, continue IV steroids, antibiotic coverage, nebulized treatments, and Symbicort. Chest x-ray was reviewed, did not show any evidence of pneumonia. Patient will need an outpatient follow-up in the pulmonary office, probably has a combination of bronchial asthma and COPD , in addition to sleep apnea. Patient states his current insurance will now cover CPAP therapy, will probably need a new sleep study. Patient is currently undergoing evaluation for Sravan-en-Y gastric bypass surgery, pending completion of the psychiatric evaluation. We'll continue to follow I performed a history & physical examination of the patient and discussed their management with my nurse practitioner, Nitza Harris. I reviewed the nurse practitioner's note and agree with the documented findings and plan of care. Lung sounds are positive decreased air movement bilaterally, with faint wheezes. The findings and the impression was discussed with the patient. I attest to the documentation by the nurse practitioner.
[2018-01-28 17:10] LABS: Glucose,Whole Blood 378 mg/dL (75-99)
[2018-01-28] MEDS: SODIUM CHLORIDE 0.9% 1,000 ML IV SCH ×2 (18:03→20:27)
[2018-01-28] MEDS: PANTOPRAZOLE 40 MG TABLET PO SCH (18:21)
[2018-01-28 19:08] LABS: Hemoglobin A1C 11.6 % (4.0-6.0)
[2018-01-28 20:04] LABS: Glucose,Whole Blood 349 mg/dL (75-99)
[2018-01-28] MEDS: methylPREDNISolone SOD SUCCI 40 MG/ML 1 ML VIAL IV SCH (21:20)
[2018-01-28] MEDS: INSULIN DETEMIR 100 UNIT/ML 10 ML VIAL SQ SCH (21:20)
[2018-01-29] MEDS: IPRATROPIUM-ALBUTEROL 3 ML NEB INHALATION PRN (00:31)
[2018-01-29 02:51] LABS: Glucose,Whole Blood 279 mg/dL (75-99)
[2018-01-29] MEDS: SODIUM CHLORIDE 0.9% 1,000 ML IV SCH (06:07)
[2018-01-29 07:04] LABS: Glucose,Whole Blood 297 mg/dL (75-99)
[2018-01-29] MEDS: AZITHROMYCIN 500 MG TAB PO SCH (07:39)
[2018-01-29] MEDS: PANTOPRAZOLE 40 MG TABLET PO SCH ×2 (07:39→17:52)
[2018-01-29] MEDS: INSULIN ASPART 100 UNIT/ML 1 ML 10 ML VIAL SQ SCH ×4 (07:40→20:21)
[2018-01-29] MEDS: NICOTINE 21MG/24HR PATCH TRANSDERM SCH (07:44)
[2018-01-29] MEDS: IPRATROPIUM-ALBUTEROL 3 ML NEB INHALATION SCH ×4 (07:51→20:13)
[2018-01-29] MEDS: SYMBICORT 160-4.5 MCG INHALER INHALATION SCH ×2 (07:51→20:13)
[2018-01-29] MEDS: methylPREDNISolone SOD SUCCI 40 MG/ML 1 ML VIAL IV SCH ×2 (08:19→20:21)
[2018-01-29 11:09] LABS: Glucose,Whole Blood 349 mg/dL (75-99)
--- NOTE | 2018-01-29 12:49 | P.PN ---
Subjective Progress Note Date: 01/29/18 Principal diagnosis: Acute hypoxic respiratory failure secondary to acute COPD exacerbation and exacerbation of mild intermittent bronchial asthma Kvng is a 37-year-old white male patient of Dr. Henry who presented to the emergency department on 01/27/2018 at 1737 with complaints of several days' history of increasing shortness of breath. His symptoms started with an upper respiratory infection, sinus congestion, green nasal drainage on Thursday. Patient's was seen by a nurse practitioner Violetta Perrin at Dr. Henry's office, and was given a prescription of prednisone, and azithromycin. However by Thursday patient started to experience fever and chills, progressive weakness, progressive shortness of breath. Patient returned to his PCPs office on Thursday, and was found to have a pulse ox of 82% on room air, and was directed to the emergency room for further evaluation and treatment. Patient is a current smoker, smokes a pack a day, for 18 years. He was diagnosed with bronchial asthma in his childhood, was never intubated, but was hospitalized 3- 4 times in his lifetime with the last time being 2 years ago. His common triggers include seasonal change, exercise, dust, cold. He borrows his mom's nebulizer machine, he has a Flonase nasal spray, Ventolin inhaler, and Advair 500/50, and albuterol nebulized treatments for his maintenance medications. He is also on Singulair 10 mg by mouth daily and omeprazole 20 mg by mouth every morning. 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 Also has underlying history of sleep apnea, but does not use CPAP machine because he had no insurance coverage at that time. His last polysomnography test was on 07/04/2014, at that time his apnea/hypopnea score index was 16.2 with lowest oxygen saturation of 75%. Patient has a history of morbid obesity, and has been evaluated for Sravan-en-Y gastric bypass surgery. Other medical history includes osteoarthritis of the lower back secondary to morbid obesity, bilateral knees, hypertension, GERD/reflux, depression, chronic sinusitis. Chest x-ray completed in in the emergency room on 01/27/2018 shows normal chest. EKG showed normal sinus rhythm. Afebrile, did have subjective fever or chills at home. Was hypoxemic on presentation with O2 sat at 87% on room air, currently on 4 L per nasal cannula with O2 sat 95%. Influenza screen was negative, lab work was negative for any evidence of leukocytosis, WBC is 8.8, d- dimer was negative at 0.23, no coagulopathy. Sodium is 136, potassium is 4.2, chloride is 96, BUN is 15, creatinine 0.59. Patient's glucose was 356 on admission. Liver enzymes were all within normal limits, troponins and cardiac enzymes were negative 1, proBNP was 20. Lung sounds show very diminished air entry bilaterally, hardly any air movement noted over left lower lung. There is prolongation of the expiratory phase noted. Patient denies any chest wall pain, does have a congested loose cough, but unable to bring up any sputum. Was started on IV Zithromax, nebulized treatments, Symbicort, IV Solu-Medrol at 40 mg IV twice a day. Patient was given a liter bolus of 0.9 normal saline in the emergency room, and his maintenance IV fluids are 0.9 normal saline at a rate of 100 ML per hour. Currently is awake and alert, appears comfortable at rest, denies any significant dyspnea at rest. On 01/29/2018 patient seen in follow-up. States is feeling slightly better, however remains congested, still not able to expectorate any sputum. Lung sounds remain diminished, little better air movement noted on today's exam, still has a very congested nonproductive cough. His room air oxygen is 87%, on 4 L per nasal cannula his pulse ox is 92%. He is afebrile, vital signs are stable, he continues on IV steroids, empiric antibiotics in the form of Zithromax, nebulized treatments and Symbicort. His influenza screen was negative, chest x-ray did not show any evidence of any acute infiltrates, she has been treated for acute exacerbation of COPD and his bronchial asthma. Smoking cessation was strongly encouraged Objective - Vital Signs Vital signs: Vital Signs Temp 97.1 F L 01/29/18 07:00 Pulse 70 01/29/18 11:29 Resp 24 01/29/18 09:24 BP 120/70 01/29/18 07:00 Pulse Ox 87 L 01/29/18 10:11 Intake & Output 01/28/18 01/29/18 01/29/18 18:59 06:59 18:59 Intake Total 1200 1400 Balance 1200 1400 Intake: IV 600 900 Sodium Chloride 0.9% 1, 600 900 000 ml @ 100 mls/hr IV . Q10H J CARLOS Rx#:[id number] Oral 600 500 Other: Voiding Method Toilet Toilet Toilet # Voids 3 1 - Exam GENERAL EXAM: Alert, pleasant 37-year-old obese white male, comfortable in no apparent distress. HEAD: Normocephalic/atraumatic. EYES: Normal reaction of pupils, equal size. Conjunctiva pink, sclera white. NOSE: Clear with pink turbinates. THROAT: No erythema or exudates. NECK: No masses, no JVD, no thyroid enlargement, no adenopathy. CHEST: No chest wall deformity. Symmetrical expansion. LUNGS: Slightly increased air entry, however overall patient's lung sounds are very diminished. Prolongation of the expiratory phase, patient has congested nonproductive cough. CVS: Regular rate and rhythm, normal S1 and S2, no gallops, no murmurs, no rubs ABDOMEN: Soft, nontender. No hepatosplenomegaly, normal bowel sounds, no guarding or rigidity. EXTREMITIES: No clubbing, no edema, no cyanosis, 2+ pulses and upper and lower extremities. MUSCULOSKELETAL: Muscle strength and tone normal. SPINE: No scoliosis or deformity SKIN: No rashes CENTRAL NERVOUS SYSTEM: Alert and oriented -3. No focal deficits, tone is normal in all 4 extremities. PSYCHIATRIC: Alert and oriented -3. Appropriate affect. Intact judgment and insight. - Labs CBC & Chem 7: 01/28/18 06:36 01/28/18 06:36 Labs: Abnormal Lab Results - Last 24 Hours (Table) 01/28/18 01/28/18 01/28/18 Range/Units 06:36 17:00 20:03 POC Glucose (mg/dL) 378 H 349 H (75-99) mg/dL Hemoglobin A1c 11.6 H (4.0-6.0) % 01/29/18 01/29/18 01/29/18 Range/Units 02:49 07:00 11:07 POC Glucose (mg/dL) 279 H 297 H 349 H (75-99) mg/dL Hemoglobin A1c (4.0-6.0) % Assessment and Plan Plan: Assessment: #1. Acute hypoxic respiratory failure secondary to acute COPD exacerbation and exacerbation of mild intermittent bronchial asthma, chest x-ray did not show any evidence of pneumonia #2. Steroid-induced hyperglycemia #3. Chronic sinusitis #4. Sleep apnea, noncompliant with CPAP therapy, related to lack of insurance coverage at that time #5. History of mild intermittent asthma #6. COPD, the severity of which is unknown at this time #7. Morbid obesity, currently undergoing evaluation for Sravan-en-Y gastric bypass surgery #8. GERD/reflux #9. Osteoarthritis of bilateral knees, and lower back related to morbid obesity #10. Diabetes mellitus type 2 #11. Hypertension #12. Chronic pain related to osteoarthritis #13. Nicotine dependence, ongoing, carries [id number] smoking history. Smoking 1 pack a day currently #14. Multiple seasonal ALLERGIES Plan: Patient reports slight improvement, continues to be congested and not able to bring up much sputum. Will continue with current plan of treatment, continue IV steroids, antibiotic coverage, nebulized treatments, and Symbicort. Smoking cessation was encouraged. We'll continue to follow I performed a history & physical examination of the patient and discussed their management with my nurse practitioner, Nitza Harris. I reviewed the nurse practitioner's note and agree with the documented findings and plan of care. Lung sounds are positive decreased air movement bilaterally, with faint wheezes. The findings and the impression was discussed with the patient. I attest to the documentation by the nurse practitioner. Time with Patient: Less than 30
[2018-01-29 12:56] VITALS: BMI 42.5
[2018-01-29 17:16] LABS: Glucose,Whole Blood 357 mg/dL (75-99)
[2018-01-29 19:33] LABS: Glucose,Whole Blood 325 mg/dL (75-99)
[2018-01-29] MEDS: INSULIN DETEMIR 100 UNIT/ML 10 ML VIAL SQ SCH (21:36)
[2018-01-30 07:10] LABS: Glucose,Whole Blood 292 mg/dL (75-99)
[2018-01-30 08:14] VITALS: BP 134/83; RESP 18; TEMP 97.6
[2018-01-30] MEDS: SYMBICORT 160-4.5 MCG INHALER INHALATION SCH (08:31)
[2018-01-30] MEDS: IPRATROPIUM-ALBUTEROL 3 ML NEB INHALATION SCH ×2 (08:31→11:59)
[2018-01-30] MEDS: INSULIN ASPART 100 UNIT/ML 1 ML 10 ML VIAL SQ SCH ×2 (08:45→12:54)
[2018-01-30] MEDS: methylPREDNISolone SOD SUCCI 40 MG/ML 1 ML VIAL IV SCH (08:47)
[2018-01-30] MEDS: PANTOPRAZOLE 40 MG TABLET PO SCH (08:47)
[2018-01-30] MEDS: AZITHROMYCIN 500 MG TAB PO SCH (08:47)
[2018-01-30] MEDS: NICOTINE 21MG/24HR PATCH TRANSDERM SCH (08:48)
[2018-01-30 11:29] LABS: Glucose,Whole Blood 383 mg/dL (75-99)
--- NOTE | 2018-01-30 12:04 | P.DS ---
Providers Date of admission: 01/27/18 18:05 Attending physician: Zoya Carrasquillo Consults: 01/27/18 18:02 Consult Physician Routine Consulting Provider: Nitesh Marroquin Consult Reason/Comments: copd Do you want consulting provider notified?: Yes Primary care physician: Carlos Henry [facility] Course: 37-year-old admitted secondary to possible asthma and/or COPD exacerbation bronchitis. Patient will require nighttime oxygen. Patient doesn't have a CPAP patient will need a sleep study as an outpatient. Patient will be discharged today if he is able to saturate okay without oxygen. Patient's saturations are borderline without oxygen at rest. PHYSICAL EXAMINATION: GENERAL: The patient is alert and oriented x3, not in any acute distress. Well developed, well nourished. HEENT: Pupils are round and equally reacting to light. EOMI. No scleral icterus. No conjunctival pallor. Normocephalic, atraumatic. No pharyngeal erythema. No thyromegaly. CARDIOVASCULAR: S1 and S2 present. No murmurs, rubs, or gallops. PULMONARY: Fairly good air entry into bilateral lung burnham bibasilar crackles are appreciated ABDOMEN: Soft, nontender, nondistended, normoactive bowel sounds. No palpable organomegaly. MUSCULOSKELETAL: No joint swelling or deformity. EXTREMITIES: No cyanosis, clubbing, or pedal edema. NEUROLOGICAL: Gross neurological examination did not reveal any focal deficits. SKIN: No rashes. Assessment and Plan Plan: -Acute hypercapnic respiratory failure: Most probably Secondary to COPD exacerbation with contribution from restrictive lung disease and sleep apnea, patient does have history of asthma and seasonal ALLERGIES. -Gastroesophageal reflux disease: -Hypertension patient will be resumed on home medication which is lisinopril and hydrochlorothiazide combination -Multiple seasonal ALLERGIES -Type 2 diabetes mellitus patient will be resumed on his home regimen his blood sugars are expected to be bit higher because of the systemic strides -Morbid obesity sleep apnea: Counseling regarding weight loss was provided and counseling regarding nicotine cessation lifestyle modifications was provided Patient Condition at Discharge: Serious Plan - Discharge Summary Discharge Rx Participant: No New Discharge Prescriptions: New Azithromycin [Zithromax Tri-Caleb] 500 mg PO DAILY #3 tab predniSONE 10 mg PO DAILY #30 tab Tiotropium [place] [Spiriva] 1 cap INHALATION DAILY #1 device No Action Omeprazole [PriLOSEC] 20 mg PO QAM Lisinopril-Hctz 20-12.5 mg [Zestoretic 20-12.5] 1 tab PO QAM Albuterol Inhaler [Ventolin Hfa Inhaler] 1 - 2 puff INHALATION RT-Q4H PRN PRN Reason: Shortness Of Breath Ibuprofen [Motrin] 800 mg PO Q8HR PRN PRN Reason: Pain Fluticasone Nasal [place] [Flonase Nasal [place]] 2 sprays EA NOSTRIL DAILY PRN PRN Reason: Allergy Symptoms Montelukast [Singulair] 10 mg PO DAILY Albuterol Nebulized [Ventolin Nebulized] 2.5 mg INHALATION RT-Q4H PRN PRN Reason: Shortness Of Breath Fluticasone/Salmeterol [Advair 500-50 Diskus] 1 puff INHALATION RT-BID Cetirizine HCl [Zyrtec] 10 mg PO DAILY PRN PRN Reason: Allergy Symptoms Atenolol [Tenormin] 50 mg PO DAILY Azithromycin [Zithromax Z-pack] See Taper PO DIRECTED glipiZIDE XL [Glucotrol Xl] 5 mg PO DAILY predniSONE 40 mg PO DAILY Discharge Medication List Lisinopril-Hctz 20-12.5 mg [Zestoretic 20-12.5] 1 tab PO QAM 03/03/14 [History] Omeprazole [PriLOSEC] 20 mg PO QAM 03/03/14 [History] Albuterol Inhaler [Ventolin Hfa Inhaler] 1 - 2 puff INHALATION RT-Q4H PRN [History] Fluticasone Nasal [place] [Flonase Nasal [place]] 2 sprays EA NOSTRIL DAILY PRN [History] Ibuprofen [Motrin] 800 mg PO Q8HR PRN 05/03/15 [History] Albuterol Nebulized [Ventolin Nebulized] 2.5 mg INHALATION RT-Q4H PRN 05/26/17 [ History] Cetirizine HCl [Zyrtec] 10 mg PO DAILY PRN 05/26/17 [History] Fluticasone/Salmeterol [Advair 500-50 Diskus] 1 puff INHALATION RT-BID 05/26/17 [History] Montelukast [Singulair] 10 mg PO DAILY 05/26/17 [History] Atenolol [Tenormin] 50 mg PO DAILY 01/27/18 [History] Azithromycin [Zithromax Z-pack] See Taper PO DIRECTED 01/27/18 [History] glipiZIDE XL [Glucotrol Xl] 5 mg PO DAILY 01/27/18 [History] predniSONE 40 mg PO DAILY 01/27/18 [History] Azithromycin [Zithromax Tri-Caleb] 500 mg PO DAILY #3 tab 01/30/18 [Rx] Tiotropium [place] [Spiriva] 1 cap INHALATION DAILY #1 device 01/30/18 [Rx] predniSONE 10 mg PO DAILY #30 tab 01/30/18 [Rx] Follow up Appointment(s)/Referral(s): Candelario Grant DO [Doctor of Osteopathic Medicine] - 02/09/18 1:00 pm Carlos Henry MD [Primary Care Provider] - 1-2 days Activity/Diet/Wound Care/Special Instructions: Nurse needs to call [facility] when the pt is d/c to notify them that the pt will be d/c so that [facility] can deliver the pt equipment. [facility] to supply pt with o2 and nebulizer. Call [facility] with you get home so they can deliver the rest of your O2. [phone] Discharge Disposition: HOME SELF-CARE
[2018-01-30 12:10] VITALS: PULSE 67
--- NOTE | 2018-01-30 13:24 | P.PN ---
Subjective Progress Note Date: 01/30/18 Principal diagnosis: Asthma exacerbation Progress note dated 01/30/2018 This is a 37-year-old male with a history of asthma exacerbation and possibly underlying COPD. This smoke for about 20 or so years. Anyway, the patient also has a history of chronic sinus disease sleep apnea syndrome morbid obesity GERD DJD diabetes hypertension and chronic nicotine dependence. Also multiple seasonal ALLERGIES. We did tell the patient that he could be discharged home. He likely will have to be discharged home on oxygen therapy. In addition, he should follow-up with me in the office as he needs updated pulmonary function test to determine the severity and the type of lung disease that he has. He likely has asthma but may have a component of COPD as well. Anyway, the patient 's happy to be discharged. He'll be discharged home on oxygen breathing treatments steroids and some antibiotics. Objective - Vital Signs Vital signs: Vital Signs Temp 97.6 F 01/30/18 08:13 Pulse 67 01/30/18 12:09 Resp 18 01/30/18 08:13 BP 134/83 01/30/18 08:13 Pulse Ox 88 L 01/30/18 11:56 Intake & Output 01/29/18 01/30/18 01/30/18 18:59 06:59 18:59 Intake Total 300 400 Balance 300 400 Weight 138.346 kg Intake: IV 300 400 Sodium Chloride 0.9% 1, 300 400 000 ml @ 50 mls/hr IV . Q20H J CARLOS Rx#:[id number] Other: Voiding Method Toilet Toilet Toilet # Voids 3 - Exam No acute distress, oriented 3. Nasal O2 in place. HEENT examination is grossly unremarkable. Mucous membranes are moist. No oral lesions. Neck supple. Full range of motion. No adenopathy thyromegaly or neck vein distention. Cardiovascular examination reveals regular rhythm rate. S1-S2 normal. No S3 or S4. No discernible murmur noted. Lungs reveal mild expiratory wheezes. Breath sounds are equal. Certainly breath sounds are improved. Abdomen soft bowel sounds are heard. No masses or tenderness. Extremities are intact. No cyanosis clubbing or edema. Skin is without rash or lesion. Neurologic examination is brief but nonfocal. - Labs CBC & Chem 7: 01/28/18 06:36 01/28/18 06:36 Labs: Abnormal Lab Results - Last 24 Hours (Table) 01/29/18 01/29/18 01/30/18 Range/Units 17:15 19:32 07:09 POC Glucose (mg/dL) 357 H 325 H 292 H (75-99) mg/dL 01/30/18 Range/Units 11:28 POC Glucose (mg/dL) 383 H (75-99) mg/dL Assessment and Plan Assessment: Assessment Acute respiratory failure with hypoxemia, secondary to COPD/asthma exacerbation History of steroid-induced hyperglycemia Chronic sinus disease Sleep apnea, noncompliant with CPAP History of asthma Possible COPD from chronic tobacco use Morbid obesity. Status post Sravan-en-Y gastric bypass surgery. Gastroesophageal reflux disease History of DJD Diabetes mellitus Hypertension Chronic nicotine dependence Multiple environmental/seasonal ALLERGIES Plan: Plan dated 01/30/2018 The patient will likely be discharged home today. He should go home on all his usual breathing treatments including high-dose Advair discus 500/50, pulse twice a day, Singulair 10 g at bedtime a rescue inhaler, and medication for his nebulizer machine. He should also be discharged home on home oxygen, as well as a short course of antibiotics and some tapering steroids. We told me he should follow-up with the with us in the office. He'll need a pulmonary function test to better define the type and severity of his chronic lung disease. Time with Patient: Less than 30
--- NOTE | 2018-02-01 00:01 | P.PN ---
Subjective Progress Note Date: 01/29/18 Progress note being dictated for Dr. Sainz Interval history:37-year-old the mail morbidly obese does have history of sleep apnea has history of asthma can use to smoke and never was diagnosed with COPD he can restart his of breath cough unable to bring up anything patient is still hypoxic now patient is presently on 4 L far as an patient denied any fever chills chest x-ray did not show any pneumonic process patient doesn't use any oxygen at home patient doesn't use CPAP machine at home either as his insurance didn't cover in the past. Patient the symptoms are brought up by season change and upper respiratory illness leading to bronchitis. Review of Systems REVIEW OF SYSTEMS: CONSTITUTIONAL: No fever, no malaise, no fatigue. HEENT: No recent visual problems or hearing problems. Denied any sore throat. CARDIOVASCULAR: No chest pain, orthopnea, PND, no palpitations, no syncope. PULMONARY: As mentioned in HPI GASTROINTESTINAL: No diarrhea, no nausea, no vomiting, no abdominal pain. Normoactive bowel sounds. NEUROLOGICAL: No headaches, no weakness, no numbness. HEMATOLOGICAL: Denies any bleeding or petechiae. GENITOURINARY: Denies any burning micturition, frequency, or urgency. MUSCULOSKELETAL/RHEUMATOLOGICAL: Denies any joint pain, swelling, or any muscle pain. ENDOCRINE: Denies any polyuria or polydipsia. The rest of the 14-point review of systems is negative. 01/29/18 overnight events. Maintained on Zithromax, IV steroids, nebulized bronchodilators. Requiring 4 L nasal cannula O2 to maintain O2 sats of low 90s. Nonproductive cough. Afebrile. Objective - Vital Signs Vital signs: Vital Signs Temp 97.6 F 01/30/18 08:13 Pulse 67 01/30/18 12:09 Resp 18 01/30/18 08:13 BP 134/83 01/30/18 08:13 Pulse Ox 88 L 01/30/18 11:56 - Exam GENERAL: VS: Temperature 97.1 oral, pulse 70, respiratory rate 24, blood pressure 120/70, O2 sat 87% on room air and 92% on 4 L nasal cannula. alert and oriented x3, not in any acute distress. Well developed, well nourished. HEENT: Pupils are round and equally reacting to light. EOMI. No scleral icterus. No conjunctival pallor. Normocephalic, atraumatic. No pharyngeal erythema. No thyromegaly. CARDIOVASCULAR: S1 and S2 present. No murmurs, rubs, or gallops. PULMONARY: Diminished bilateral lung burnham bibasilar crackles are appreciated ABDOMEN: Soft, nontender, nondistended, normoactive bowel sounds. No palpable organomegaly. MUSCULOSKELETAL: No joint swelling or deformity. EXTREMITIES: No cyanosis, clubbing, or pedal edema. NEUROLOGICAL: Gross neurological examination did not reveal any focal deficits. SKIN: No rashes. - Labs CBC & Chem 7: 01/28/18 06:36 01/28/18 06:36 Assessment and Plan Assessment: -Acute hypercapnic respiratory failure: Most probably Secondary to COPD exacerbation with contribution from restrictive lung disease and sleep apnea, patient does have history of asthma and seasonal ALLERGIES. -Gastroesophageal reflux disease: -Hypertension patient will be resumed on home medication which is lisinopril and hydrochlorothiazide combination -Multiple seasonal ALLERGIES -Type 2 diabetes mellitus patient will be resumed on his home regimen his blood sugars are expected to be bit higher because of the systemic steroids, hemoglobin A1c 11.6 -Morbid obesity sleep apnea: Counseling regarding weight loss was provided and counseling regarding nicotine cessation lifestyle modifications was provided Plan: Continue on current medication regime ,monitoring and symptomatic treatment. Maintain nebulized because dilators, antibiotics, steroids. Follow closely with pulmonary. Outpatient DM CLasses. Steroid tapering as per pulmonary, insulin orders given. Currently patient requiring 4 L nasal cannula O2 to maintain O2 sats of low 90s.Smoking cessation readdressed. Discharge planning in progress possibly for tomorrow. The impression and plan of care has been dictated as directed. : I performed a history and examination of this patient, discussed the same with the dictator. I agree with the dictator's note ,documented as a scribe. Any additional findings or plans will be noted.
== END 2018-01-30 15:00 | disposition home or self-care (01) | DRG 190 ==
LOC: EC 15:32 → 5MS5E 18:05
PROVIDERS: ADMIT Hospitalist; ATTEND Hospitalist
DX: J44.1 Chronic obstructive pulmonary disease with (acute) exacerbation (principal); J96.01 Acute respiratory failure with hypoxia; J96.02 Acute respiratory failure with hypercapnia; E66.01 Morbid (severe) obesity due to excess calories; J45.22 Mild intermittent asthma with status asthmaticus; E11.65 Type 2 diabetes mellitus with hyperglycemia; Z68.41 Body mass index [BMI] 40.0-44.9, adult; K21.9 Gastro-esophageal reflux disease without esophagitis; I10 Essential (primary) hypertension; J30.2 Other seasonal allergic rhinitis; G47.30 Sleep apnea, unspecified; J32.9 Chronic sinusitis, unspecified; M47.9 Spondylosis, unspecified; M17.0 Bilateral primary osteoarthritis of knee; G89.29 Other chronic pain; F17.210 Nicotine dependence, cigarettes, uncomplicated; F32.9 Major depressive disorder, single episode, unspecified; Z71.6 Tobacco abuse counseling; Z79.899 Other long term (current) drug therapy; Z79.84 Long term (current) use of oral hypoglycemic drugs; Z79.52 Long term (current) use of systemic steroids; Z79.1 Long term (current) use of non-steroidal anti-inflammatories (NSAID); Z90.49 Acquired absence of other specified parts of digestive tract; Z87.01 Personal history of pneumonia (recurrent); Z87.19 Personal history of other diseases of the digestive system; Z91.19 Patient's noncompliance with other medical treatment and regimen; Z71.3 Dietary counseling and surveillance
CPT/HCPCS: 36415; 71045; 80048; 80053; 82550; 82553; 83036; 83735; 83880; 84484; 85025; 85379; 85610; 85730; 87502; 93005; 94640; 94644; 94760; 96365; 96366; 96375; 99291

== ENCOUNTER → 2018-06-10 | Outpatient (CLI) | payer OTHER ==
--- NOTE | 2018-06-10 11:46 | CONS ---
CONSULTATION DATE OF SERVICE: 06/13/2018 A 38-year-old gentleman has been evaluated in sleep center for obstructive sleep apnea- hypopnea syndrome. HISTORY OF PRESENT ILLNESS/SLEEP-WAKE EVALUATION: Patient had a home sleep apnea test in 2013, which documented obstructive sleep apnea- hypopnea syndrome, but then because of insurance problems patient was not able to get treatment with CPAP. At the present time, patient's sleep schedule from 4 to 5 a.m. until about 1 p.m. He does have TV in bedroom. He sleeps on the side and stomach position. He has loud snoring and witnessed episodes of stopped breathing during the sleep. The patient wakes up from sleep around 5 times with 3 episodes of nocturia. In the morning, patient wakes up tired, has difficulties to pay attention, falling asleep during the day, has problem with concentration, irritability, depression. [place] Sleepiness Scale significantly increased to 19. PAST MEDICAL HISTORY: Positive for hypertension, diabetes, asthma, allergy, acid reflux, hyperlipidemia. PAST SURGICAL HISTORY: Cholecystectomy. SOCIAL HISTORY: Positive for smoking for about 23 years, about 1-1/2 pack a day. Presently patient smokes around half pack a day, trying to quit smoking. Alcohol consumption none. MEDICATIONS: Motrin, Fioricet, Chantix, Zyrtec, Flonase, Singulair, Ventolin, Symbicort, glipizide, Prilosec, Lipitor, Tenormin, Zestoretic. FAMILY HISTORY: Not available. The patient was adopted. REVIEW OF SYSTEMS: Multiple awakenings from sleep, sleepiness during the day, swelling of the legs. PHYSICAL EXAMINATION: During physical exam, a 38-year-old gentleman without distress. VITAL SIGNS: BP 135/83, HR 67, RR 16, height 5 feet 11 inches, weight 326.4, BMI 45.6, temperature 98.5, oxygen saturation room air 95%. HEENT: PERRLA, EOMI. Oropharynx extremely low position of soft palate. Wide neck 19 inches in circumference. ABDOMEN: Obese. EXTREMITIES: 1+ ankle edema. IMPRESSION: 1. Snoring, witnessed episodes of stopped breathing during the sleep, multiple awakenings from sleep, extremely low position of soft palate, wide neck, obstructive sleep apnea by results of home sleep test 4 years ago, obstructive sleep apnea-hypopnea syndrome. 2. Obesity, body mass index 45.6. 3. Hypertension. 4. Hyperlipidemia. 5. Diabetes mellitus. 6. Asthma. 7. Allergy. 8. Acid reflux. 9. Smoker for about 35 pack years, trying to quit smoking. 10.Status post cholecystectomy. PLAN: 1. Polysomnography for evaluation of patient's breathing during sleep. 2. CPAP/BiPAP titration if sleep study confirms obstructive sleep apnea-hypopnea syndrome. 3. Preferable position during sleep on the side. 4. No driving if patient feels any sleepiness. 5. I will see patient for follow up visit to explain results of testing and following plan. Thank you very much for referring this patient for consultation. Sincerely, Mario Soliz MD, PhD, FAASM Diplomat of [place] [employer] [place] [employer] [facility] [place] MMJEAN PAUL / MAGGIE: [id number] /
== END ==
LOC: SLEEP 10:29
PROVIDERS: ATTEND Internal Medicine
DX: G47.33 Obstructive sleep apnea (adult) (pediatric) (principal); E66.9 Obesity, unspecified; I10 Essential (primary) hypertension; E78.5 Hyperlipidemia, unspecified; E11.9 Type 2 diabetes mellitus without complications; J45.909 Unspecified asthma, uncomplicated; F17.210 Nicotine dependence, cigarettes, uncomplicated; K21.9 Gastro-esophageal reflux disease without esophagitis; Z90.49 Acquired absence of other specified parts of digestive tract; Z99.89 Dependence on other enabling machines and devices; Z88.9 Allergy status to unspecified drugs, medicaments and biological substances; Z68.42 Body mass index [BMI] 45.0-49.9, adult; Z79.1 Long term (current) use of non-steroidal anti-inflammatories (NSAID); Z79.899 Other long term (current) drug therapy; Z79.84 Long term (current) use of oral hypoglycemic drugs
CPT/HCPCS: 99211

== ENCOUNTER 2018-07-26 13:13 | Emergency (ER) | payer OTHER ==
[2018-07-26 13:33] VITALS: BP 132/80; TEMP 98.4
[2018-07-26] MEDS ORDERED: KETOROLAC 30 MG/ML 1 ML VIAL IM STA (14:21)
--- NOTE | 2018-07-26 14:30 | ED ---
General Adult HPI - General Chief complaint: Chest Pain Stated complaint: RT rib/back pain Time Seen by Provider: 07/26/18 14:12 Source: patient, RN notes reviewed Mode of arrival: ambulatory Limitations: no limitations - History of Present Illness Initial comments: 38-year-old male presents to the emergency department for a chief complaint of right rib pain 10 hours. Patient states the pain is on the right lower posterior ribs. He denies any anterior chest pain or radiating pain. Patient states that early this morning he was lifting an electric scooter when he felt a crack and a pop in his right side. Patient states movement and taking a deep breath makes the pain worse. He describes the pain as a sharp pain and rates it at a 9 out of 10. Patient has tried Motrin earlier today with minimal relief. Patient denies feeling short of breath. Patient denies any coughing. Patient has no other complaints at this time including shortness of breath, chest pain, abdominal pain, nausea or vomiting, headache, or visual changes. - Related Data Home Medications Medication Instructions Recorded Confirmed Lisinopril-Hctz 20-12.5 mg 1 tab PO QAM 03/03/14 01/27/18 [Zestoretic 20-12.5] Omeprazole [PriLOSEC] 20 mg PO QAM 03/03/14 01/27/18 Fluticasone Nasal [place] [Flonase 2 sprays EA NOSTRIL DAILY PRN 05/03/15 01/27/18 Nasal [place]] Ibuprofen [Motrin] 800 mg PO Q8HR PRN 05/03/15 01/27/18 Cetirizine HCl [Zyrtec] 10 mg PO DAILY PRN 05/26/17 01/27/18 Fluticasone/Salmeterol [Advair 1 puff INHALATION RT-BID 05/26/17 01/27/18 500-50 Diskus] Montelukast [Singulair] 10 mg PO DAILY 05/26/17 01/27/18 Atenolol [Tenormin] 50 mg PO DAILY 01/27/18 01/27/18 Azithromycin [Zithromax Z-pack] See Taper PO DIRECTED 01/27/18 01/27/18 glipiZIDE XL [Glucotrol XL] 5 mg PO DAILY 01/27/18 01/27/18 predniSONE 40 mg PO DAILY 01/27/18 01/27/18 Previous Rx's Medication Instructions Recorded Albuterol Inhaler [Ventolin Hfa 1 - 2 puff INHALATION RT-Q4H PRN 01/30/18 Inhaler] #1 inhaler Azithromycin [Zithromax Tri-Caleb] 500 mg PO DAILY #3 tab 01/30/18 Tiotropium [place] [Spiriva] 1 cap INHALATION DAILY #1 device 01/30/18 predniSONE 10 mg PO DAILY #30 tab 01/30/18 Allergies Allergy/AdvReac Type Severity Reaction Status Date / Time No Known Allergies Allergy Verified 07/26/18 13:28 Review of Systems ROS Statement: Those systems with pertinent positive or pertinent negative responses have been documented in the HPI. ROS Other: All systems not noted in ROS Statement are negative. Past Medical History Past Medical History: Asthma, Diabetes Mellitus, GERD/Reflux, Hypertension, Osteoarthritis (OA), Pneumonia, Sleep Apnea/CPAP/BIPAP Additional Past Medical History / Comment(s): rectal bleeding(internal hemorrhoids), degenerative disc disease, arthritis, no cpap used History of Any Multi-Drug Resistant Organisms: None Reported Past Surgical History: Cholecystectomy Additional Past Surgical History / Comment(s): EGD/Colonoscopy, pain clinic procedure Past Anesthesia/Blood Transfusion Reactions: Motion Sickness Additional Past Anesthesia/Blood Transfusion Reaction / Comment(s): adopted- family hx unknown Past Psychological History: No Psychological Hx Reported Smoking Status: Current every day smoker Past Alcohol Use History: None Reported Past Drug Use History: None Reported - Past Family History Mother History Unknown: Yes Additional Family Medical History / Comment(s): client states he was adopted Father Family Medical History: Unable to Obtain Additional Family Medical History / Comment(s): client states he was adopted General Exam Limitations: no limitations General appearance: alert, in no apparent distress (Patient sitting on bed in no distress. Does not appear short of breath or to have any difficulty breathing. Speaking in full sentences without any difficulty.) Head exam: Present: atraumatic, normocephalic, normal inspection Eye exam: Present: normal appearance, PERRL, EOMI. Absent: scleral icterus, conjunctival injection, periorbital swelling ENT exam: Present: normal exam, mucous membranes moist Neck exam: Present: normal inspection. Absent: tenderness, meningismus, lymphadenopathy Respiratory exam: Present: normal lung sounds bilaterally, other (Tenderness to palpation to right posterior ribs around rib 10. No step-off palpated. No ecchymosis noted.). Absent: respiratory distress, wheezes, rales, rhonchi, stridor Cardiovascular Exam: Present: regular rate, normal rhythm, normal heart sounds. Absent: systolic murmur, diastolic murmur, rubs, gallop, clicks GI/Abdominal exam: Present: soft, normal bowel sounds. Absent: distended, tenderness, guarding, rebound, rigid Neurological exam: Present: alert, oriented X3, CN II-XII intact Psychiatric exam: Present: normal affect, normal mood Course Vital Signs 07/26/18 07/26/18 13:20 15:15 Temperature 98.4 F Pulse Rate 77 76 Respiratory 18 17 Rate Blood Pressure 132/80 O2 Sat by Pulse 91 L 97 Oximetry Medical Decision Making - Medical Decision Making 38-year-old presents to the ER with chief complaint of right rib pain after picking up a heavy object earlier this morning. Patient denies any shortness of breath. He states pain is worsened with movement and taking a deep breath. On exam patient has tenderness in the right lower rib. No step-off palpated. No ecchymosis. Patient initially presented on 91% room air but after re- checking him he is 97% on room air and again denies any shortness of breath. X- ray was obtained which shows no acute abnormality. No pneumothorax or pleural effusion. No evidence of displaced rib fracture. Patient likely has a sprain of intercostal muscle. At this time discussed with patient Motrin and Tylenol for pain as well as pillow splinting. Discussed taking 10 deep breaths every hour to prevent any pneumonia. Discussed following up with primary care in 1-2 days and returning immediately to the emergency department if he has any shortness of breath or difficulty breathing or any other worsening symptoms. Disposition Clinical Impression: Rib injury Disposition: HOME SELF-CARE Condition: Good Instructions: Rib Fracture (ED) Additional Instructions: Please take Motrin and Tylenol for pain. Please do pillow splinting as needed for relief as discussed. Please remember to take 10 deep breaths every hour to prevent pneumonias. Return immediately to the emergency department if you develop any shortness of breath or difficulty breathing or any other worsening symptoms. Is patient prescribed a controlled substance at d/c from ED?: No Referrals: Carlos Henry MD [Primary Care Provider] - 1-2 days Time of Disposition: 15:20
--- NOTE | 2018-07-26 14:55 | XR ---
Right RIBS with PA chest x-ray HISTORY: Right rib pain after lifting Frontal view of the chest, 4 views of the right ribs correlated to prior chest x-ray 01/27/2018 Chest x-ray shows no acute abnormality. There is no pneumothorax or pleural effusion. Surgical clips are present in the right upper quadrant. No evident displaced rib fracture. IMPRESSION: No acute abnormality, bone scan could be performed for increased sensitivity as indicated .
[2018-07-26 15:16] VITALS: PULSE 76; RESP 17
== END 2018-07-26 15:24 | disposition home or self-care (01) ==
LOC: EC 13:13
DX: S29.9XXA Unspecified injury of thorax, initial encounter (principal); J45.909 Unspecified asthma, uncomplicated; E11.9 Type 2 diabetes mellitus without complications; K21.9 Gastro-esophageal reflux disease without esophagitis; I10 Essential (primary) hypertension; M19.90 Unspecified osteoarthritis, unspecified site; F17.200 Nicotine dependence, unspecified, uncomplicated; Z90.49 Acquired absence of other specified parts of digestive tract; Z79.51 Long term (current) use of inhaled steroids; Z79.84 Long term (current) use of oral hypoglycemic drugs; Z79.899 Other long term (current) drug therapy; X50.0XXA Overexertion from strenuous movement or load, initial encounter; Y92.009 Unspecified place in unspecified non-institutional (private) residence as the place of occurrence of the external cause; Y93.89 Activity, other specified
CPT/HCPCS: 71101; 99283; 96372; J1885

== ENCOUNTER 2018-08-01 21:34 | Emergency (ER) | payer OTHER ==
[2018-08-01] MEDS ORDERED: SODIUM CHLORIDE 0.9% 500 ML 500 ML IV STA (22:02)
[2018-08-01] MEDS ORDERED: methylPREDNISolone SOD SUCCI 125 MG/2 ML VIAL IV STA (22:02)
[2018-08-01] MEDS ORDERED: IPRATROPIUM-ALBUTEROL 3 ML NEB INHALATION STA (22:02)
--- NOTE | 2018-08-01 22:08 | ED ---
General Adult HPI - General Source: patient Mode of arrival: ambulatory Limitations: no limitations <Sonya Baker - Last Filed: 08/02/18 00:25> <Lynn Mesa - Last Filed: 08/02/18 03:09> - General Chief complaint: Upper Respiratory Infection Stated complaint: diff breathing Time Seen by Provider: 08/01/18 21:56 - History of Present Illness Initial comments: 38-year-old male patient presents to the emergency department today for complaints of nasal congestion, cough, and chest tightness. Patient states he has been sick with these symptoms for the last 3 weeks. Patient states 2 weeks ago he was started on Augmentin and prednisone, states he did complete both of these prescriptions and is not feeling any better. Patient states that today his cough is worsened, he is coughing up green sputum with no hemoptysis. States that he does feel short of breath at times. States he did 2 breathing treatments at home today without relief of symptoms. States that he has felt feverish but has not had any elevated temperatures at home. She states he is having a lot of facial pressure and green nasal drainage occasionally with mild epistaxis. Denies any nausea, vomiting, chest pain, upper back pain or sweats. Patient denies any recent rash, abdominal pain, diarrhea, constipation, back pain, numbness, tingling, dizziness, weakness, hematuria, dysuria, urinary urgency, urinary frequency, headache, visual changes, or any other complaints. (Sonya Baker) - Related Data Home Medications Medication Instructions Recorded Confirmed Lisinopril-Hctz 20-12.5 mg 1 tab PO QAM 03/03/14 01/27/18 [Zestoretic 20-12.5] Omeprazole [PriLOSEC] 20 mg PO QAM 03/03/14 01/27/18 Fluticasone Nasal [place] [Flonase 2 sprays EA NOSTRIL DAILY PRN 05/03/15 01/27/18 Nasal [place]] Ibuprofen [Motrin] 800 mg PO Q8HR PRN 05/03/15 01/27/18 Cetirizine HCl [Zyrtec] 10 mg PO DAILY PRN 05/26/17 01/27/18 Fluticasone/Salmeterol [Advair 1 puff INHALATION RT-BID 05/26/17 01/27/18 500-50 Diskus] Montelukast [Singulair] 10 mg PO DAILY 05/26/17 01/27/18 Atenolol [Tenormin] 50 mg PO DAILY 01/27/18 01/27/18 Azithromycin [Zithromax Z-pack] See Taper PO DIRECTED 01/27/18 01/27/18 glipiZIDE XL [Glucotrol XL] 5 mg PO DAILY 01/27/18 01/27/18 predniSONE 40 mg PO DAILY 01/27/18 01/27/18 Previous Rx's Medication Instructions Recorded Albuterol Inhaler [Ventolin Hfa 1 - 2 puff INHALATION RT-Q4H PRN 01/30/18 Inhaler] #1 inhaler Azithromycin [Zithromax Tri-[place]aleb] 500 mg PO DAILY #3 tab 01/30/18 Tiotropium [place] [Spiriva] 1 cap INHALATION DAILY #1 device 01/30/18 predniSONE 10 mg PO DAILY #30 tab 01/30/18 Azithromycin [Zithromax Z-pack] 0 mg PO DIRECTED #6 tab 08/02/18 Allergies Allergy/AdvReac Type Severity Reaction Status Date / Time No Known Allergies Allergy Verified 08/01/18 21:40 Review of Systems ROS Other: All systems not noted in ROS Statement are negative. <Sonya Baker M - Last Filed: 08/02/18 00:25> ROS Other: All systems not noted in ROS Statement are negative. <Lynn Mesa - Last Filed: 08/02/18 03:09> ROS Statement: Those systems with pertinent positive or pertinent negative responses have been documented in the HPI. Past Medical History Past Medical History: Asthma, Diabetes Mellitus, GERD/Reflux, Hypertension, Osteoarthritis (OA), Pneumonia, Sleep Apnea/CPAP/BIPAP Additional Past Medical History / Comment(s): rectal bleeding(internal hemorrhoids), degenerative disc disease, arthritis, no cpap used History of Any Multi-Drug Resistant Organisms: None Reported Past Surgical History: Cholecystectomy Additional Past Surgical History / Comment(s): EGD/Colonoscopy, pain clinic procedure Past Anesthesia/Blood Transfusion Reactions: Motion Sickness Additional Past Anesthesia/Blood Transfusion Reaction / Comment(s): adopted- family hx unknown Past Psychological History: No Psychological Hx Reported Smoking Status: Current every day smoker Past Alcohol Use History: None Reported Past Drug Use History: None Reported - Past Family History Mother History Unknown: Yes Additional Family Medical History / Comment(s): client states he was adopted Father Family Medical History: Unable to Obtain Additional Family Medical History / Comment(s): client states he was adopted <Sonya Baker Filed: 08/02/18 00:25> General Exam Limitations: no limitations General appearance: alert, in no apparent distress, other (This is a well- developed, well-nourished, obese adult male patient in no acute distress. Vital signs upon presentation are temperature 99.3F, pulse 109, respirations 20 , blood pressure 149/86, pulse ox 94% on room air.) Eye exam: Present: normal appearance, PERRL, EOMI. Absent: scleral icterus, conjunctival injection, periorbital swelling ENT exam: Present: normal exam, mucous membranes moist, TM's normal bilaterally. Absent: normal oropharynx (Pharyngeal erythema) Neck exam: Present: normal inspection. Absent: tenderness, meningismus, lymphadenopathy Respiratory exam: Present: normal lung sounds bilaterally. Absent: respiratory distress, wheezes, rales, rhonchi, stridor Cardiovascular Exam: Present: regular rate, normal rhythm, normal heart sounds. Absent: systolic murmur, diastolic murmur, rubs, gallop, clicks GI/Abdominal exam: Present: soft, normal bowel sounds. Absent: distended, tenderness, guarding, rebound, rigid Neurological exam: Present: alert, oriented X3, CN II-XII intact Psychiatric exam: Present: normal affect, normal mood Skin exam: Present: warm, dry, intact, normal color. Absent: rash <Sonya Baker Filed: 08/02/18 00:25> Vital Signs 08/01/18 08/01/18 08/01/18 21:38 22:20 22:29 Temperature 99.3 F Pulse Rate 109 H 104 H 100 Respiratory 20 Rate Blood Pressure 149/86 O2 Sat by Pulse 94 L Oximetry 08/02/18 00:20 Temperature 100.6 F H Pulse Rate 97 Respiratory 18 Rate Blood Pressure 155/94 O2 Sat by Pulse 93 L Oximetry Medical Decision Making - Lab Data Result diagrams: 08/01/18 22:20 08/01/18 22:20 - Radiology Data Radiology results: report reviewed, image reviewed <Sonya Baker Filed: 08/02/18 00:25> - Lab Data Result diagrams: 08/01/18 22:20 08/01/18 22:20 <Lynn Mesa - Last Filed: 08/02/18 03:09> - Medical Decision Making 38-year-old male patient presented to the emergency department today for complaints of facial pressure, nasal congestion, and cough with green sputum production. Worsening over the last couple of weeks. Physical examination was relatively unremarkable. Lungs are clear to auscultation. Labs are obtained did reveal elevated white blood cell count. Mildly elevated lactic acid at 2.1. Patient had T-max in the department at 100.3F. Heart rate initially elevated decreased to 97 after receiving 1500 mL of normal saline. Chest x-ray showed did show evidence of a small infiltrate in the left lung base. Patient will be treated for community acquired pneumonia with azithromycin. He is instructed to follow-up with his primary care physician for recheck in 1-2 days. Return parameters were discussed in detail. He verbalizes understanding and agrees with this plan. (Sonya Baker) I was available for consultation in the emergency department. The history and physical exam were done by the midlevel provider. I was consulted for this patient's care. I reviewed the case with the midlevel provider and based on their presentation of the patient, I agree with the assessment, medical decision making and plan of care as documented. (Lynn Mesa) - Lab Data Lab Results 08/01/18 08/01/18 08/01/18 Range/Units 22:20 22:20 22:20 WBC 15.6 H (3.8-10.6) k/uL RBC 4.77 (4.30-5.90) m/uL Hgb 15.7 (13.0-17.5) gm/dL Hct 46.4 (39.0-53.0) % MCV 97.3 (80.0-100.0) fL MCH 32.8 (25.0-35.0) pg MCHC 33.8 (31.0-37.0) g/dL RDW 13.6 (11.5-15.5) % Plt Count 301 (150-450) k/uL Neutrophils % 71 % Lymphocytes % 18 % Monocytes % 5 % Eosinophils % 4 % Basophils % 0 % Neutrophils # 11.1 H (1.3-7.7) k/uL Lymphocytes # 2.8 (1.0-4.8) k/uL Monocytes # 0.8 (0-1.0) k/uL Eosinophils # 0.6 (0-0.7) k/uL Basophils # 0.0 (0-0.2) k/uL Sodium 143 (137-145) mmol/L Potassium 3.5 (3.5-5.1) mmol/L Chloride 104 (98-107) mmol/L Carbon Dioxide 31 H (22-30) mmol/L Anion Gap 8 mmol/L BUN 14 (9-20) mg/dL Creatinine 0.70 (0.66-1.25) mg/dL Est GFR (CKD-EPI)AfAm >90 (>60 ml/min/1.73 sqM) Est GFR (CKD-EPI)NonAf >90 (>60 ml/min/1.73 sqM) Glucose 109 H (74-99) mg/dL Lactic Ac Sepsis Rflx Plasma Lactic Acid [place] 2.1 H* (0.7-2.0) mmol/L Calcium 9.4 (8.4-10.2) mg/dL 08/01/18 Range/Units 23:04 WBC (3.8-10.6) k/uL RBC (4.30-5.90) m/uL Hgb (13.0-17.5) gm/dL Hct (39.0-53.0) % MCV (80.0-100.0) fL MCH (25.0-35.0) pg MCHC (31.0-37.0) g/dL RDW (11.5-15.5) % Plt Count (150-450) k/uL Neutrophils % % Lymphocytes % % Monocytes % % Eosinophils % % Basophils % % Neutrophils # (1.3-7.7) k/uL Lymphocytes # (1.0-4.8) k/uL Monocytes # (0-1.0) k/uL Eosinophils # (0-0.7) k/uL Basophils # (0-0.2) k/uL Sodium (137-145) mmol/L Potassium (3.5-5.1) mmol/L Chloride (98-107) mmol/L Carbon Dioxide (22-30) mmol/L Anion Gap mmol/L BUN (9-20) mg/dL Creatinine (0.66-1.25) mg/dL Est GFR (CKD-EPI)AfAm (>60 ml/min/1.73 sqM) Est GFR (CKD-EPI)NonAf (>60 ml/min/1.73 sqM) Glucose (74-99) mg/dL Lactic Ac Sepsis Rflx Y Plasma Lactic Acid [place] (0.7-2.0) mmol/L Calcium (8.4-10.2) mg/dL - Radiology Data Two-view x-ray of the chest was obtained. Heart is normal. Lungs are clear consolidation. There is small linear density at the left lung base. Costophrenic angles are clear. Bony thorax is intact. Impression by Dr. Steel shows small linear infiltrate or atelectasis at the left lung base mostly new compared to last exam. (Sonya Baker) Disposition Is patient prescribed a controlled substance at d/c from ED?: No Time of Disposition: 00:26 <Sonya Baker - Last Filed: 08/02/18 00:25> <Lynn Mesa - Last Filed: 08/02/18 03:09> Clinical Impression: Left lower lobe pneumonia Disposition: HOME SELF-CARE Condition: Good Instructions: Bacterial Pneumonia (ED) Additional Instructions: Complete and about a prescription in full. Follow-up with your primary care physician for recheck in 1-2 days. Return here immediately for any new, worsening, or concerning symptoms. Prescriptions: Azithromycin [Zithromax Z-pack] 0 mg PO DIRECTED #6 tab Referrals: Carlos Henry MD [Primary Care Provider] - 1-2 days
--- NOTE | 2018-08-01 22:43 | XR ---
EXAMINATION TYPE: XR chest 2V DATE OF EXAM: 08/01/2018 COMPARISON: 07/26/2018 HISTORY: Congestion TECHNIQUE: Frontal and lateral views of the chest are obtained. FINDINGS: Heart is normal. Lungs are clear of consolidation. There is a small linear density at the left lung base. Costophrenic angles are clear. Bony thorax is intact. IMPRESSION: Small linear infiltrate or atelectasis at the left lung bases mostly new compared to las t exam.
[2018-08-01 22:46] LABS: Basophils % (A) 0 %; Eosinophils # (A) 0.6 k/uL (0-0.7); Eosinophils % (A) 4 %; HCT 46.4 % (39.0-53.0); HGB 15.7 gm/dL (13.0-17.5); Lymphocytes # (A) 2.8 k/uL (1.0-4.8); Lymphocytes % (A) 18 %; MCH 32.8 pg (25.0-35.0); MCHC 33.8 g/dL (31.0-37.0); MCV 97.3 fL (80.0-100.0); Mean Platelet Volume 7.3; Monocytes # (A) 0.8 k/uL (0-1.0); Monocytes % (A) 5 %; Neutrophils # (A) 11.1 k/uL (1.3-7.7); Neutrophils % (A) 71 %; Platelet Count 301 k/uL (150-450); RBC 4.77 m/uL (4.30-5.90); RDW 13.6 % (11.5-15.5); WBC 15.6 k/uL (3.8-10.6)
[2018-08-01 22:56] LABS: Anion Gap 8 mmol/L; Blood Urea Nitrogen 14 mg/dL (9-20); Calcium 9.4 mg/dL (8.4-10.2); Carbon Dioxide 31 mmol/L (22-30); Chloride 104 mmol/L (98-107); Glucose 109 mg/dL (74-99); Potassium 3.5 mmol/L (3.5-5.1); Sodium 143 mmol/L (137-145)
[2018-08-01] MEDS ORDERED: SODIUM CHLORIDE 0.9% 1,000 ML IV ONE (23:20)
[2018-08-02 00:20] VITALS: BP 155/94; PULSE 97; RESP 18; TEMP 100.6
[2018-08-02] MEDS ORDERED: ACETAMINOPHEN TAB 500 MG TAB PO STA (00:23)
[2018-08-02] MEDS ORDERED: AZITHROMYCIN 500 MG TAB PO STA (00:23)
== END 2018-08-02 01:40 | disposition home or self-care (01) ==
LOC: EC 21:34
DX: J18.9 Pneumonia, unspecified organism (principal); R91.8 Other nonspecific abnormal finding of lung field; R74.0 Nonspecific elevation of levels of transaminase and lactic acid dehydrogenase [LDH]; J45.909 Unspecified asthma, uncomplicated; E11.9 Type 2 diabetes mellitus without complications; K21.9 Gastro-esophageal reflux disease without esophagitis; I10 Essential (primary) hypertension; M19.90 Unspecified osteoarthritis, unspecified site; F17.200 Nicotine dependence, unspecified, uncomplicated; Z79.51 Long term (current) use of inhaled steroids; Z79.52 Long term (current) use of systemic steroids; Z79.84 Long term (current) use of oral hypoglycemic drugs; Z79.899 Other long term (current) drug therapy
CPT/HCPCS: 36415; 94640; 80048; 83605; 85025; 87040; 71046; 99285; 96374; 96361 ×3; J2930

== ENCOUNTER 2018-08-04 21:21 | Inpatient (IN) | payer OTHER ==
[2018-08-04] MEDS ORDERED: ACETAMINOPHEN TAB 500 MG TAB PO STA (21:30)
[2018-08-04] MEDS ORDERED: LEVOFLOXACIN 750MG-D5W PMX 750 MG in DEXTROSE/WATER 1 150ML.BAG IVPB STA ×2 (21:30→23:12)
[2018-08-04] MEDS ORDERED: IBUPROFEN IV 600 MG in SODIUM CHLORIDE 0.9% 250 ML IV STA (21:30)
[2018-08-04] MEDS ORDERED: IPRATROPIUM 0.5 MG/2.5 ML NEBU INHALATION STA (21:31)
[2018-08-04] MEDS ORDERED: ALBUTEROL NEBULIZED (CONC) 5 MG, SODIUM CHLORIDE 0.9% NEBULIZ 3 ML INHALATION STA ×2 (21:31)
[2018-08-04] MEDS ORDERED: methylPREDNISolone SOD SUCCI 125 MG/2 ML VIAL IV STA (21:32)
[2018-08-04] MEDS: SODIUM CHLORIDE 0.9% 500 ML 500 ML IV SCH ×2 (21:37→22:10)
--- NOTE | 2018-08-04 21:38 | ED ---
General Adult HPI - General Chief complaint: Shortness of Breath Stated complaint: [place] Time Seen by Provider: 08/04/18 21:21 Source: patient, EMS, RN notes reviewed Mode of arrival: EMS Limitations: no limitations - History of Present Illness Initial comments: The 38-year-old male who comes in with a past medical history significant for asthma and a recent history of pneumonia for which she was treated with a Z- Caleb. Patient states over the last day he has had a lot more difficulty breathing to the point where his nebulizer was not helping him. Patient states she's coughing and coughing up some sputum. Patient states he feels warm and his had the chills but he was unable to get a temperature because his thermometer was broken. Patient denies any chest pain. Patient denies any palpitations. Patient denies any lightheadedness dizziness or near syncopal episode. Patient denies any headache patient denies numbness weakness. Patient denies abdominal pain patient denies nausea vomiting diarrhea. - Related Data Home Medications Medication Instructions Recorded Confirmed Lisinopril-Hctz 20-12.5 mg 1 tab PO DAILY 03/03/14 08/04/18 [Zestoretic 20-12.5] Omeprazole [PriLOSEC] 20 mg PO DAILY 03/03/14 08/04/18 Fluticasone Nasal [place] [Flonase 2 sprays EA NOSTRIL DAILY PRN 05/03/15 08/04/18 Nasal [place]] Ibuprofen [Motrin] 800 mg PO Q8H PRN 05/03/15 08/04/18 Cetirizine HCl [Zyrtec] 10 mg PO DAILY PRN 05/26/17 08/04/18 Montelukast [Singulair] 10 mg PO DAILY 05/26/17 08/04/18 Atenolol [Tenormin] 50 mg PO DAILY 01/27/18 08/04/18 Azithromycin [Zithromax Z-pack] See Taper PO DIRECTED 01/27/18 08/04/18 glipiZIDE XL [Glucotrol XL] 5 mg PO DAILY 01/27/18 08/04/18 Acetaminophen Tab [Tylenol Tab] 1,000 mg PO Q6H PRN 08/04/18 08/04/18 Albuterol Nebulized [Ventolin 2.5 mg INHALATION RT-QID PRN 08/04/18 08/04/18 Nebulized] Atorvastatin Calcium [Lipitor] 10 mg PO DAILY 08/04/18 08/04/18 Budesonide/Formoterol Fumarate 2 puff INHALATION RT-BID 08/04/18 08/04/18 [Symbicort 160-4.5 Mcg Inhaler] Butalb/APAP/Caff 50-325-40Mg 1 tab PO Q6H PRN 08/04/18 08/04/18 [Fioricet 50-325-40] Varenicline [Chantix Continuing 1 mg PO BID 08/04/18 08/04/18 Pack] Previous Rx's Medication Instructions Recorded Albuterol Inhaler [Ventolin Hfa 1 - 2 puff INHALATION RT-Q4H PRN 01/30/18 Inhaler] #1 inhaler Allergies Allergy/AdvReac Type Severity Reaction Status Date / Time No Known Allergies Allergy Verified 08/04/18 21:45 Review of Systems ROS Statement: Those systems with pertinent positive or pertinent negative responses have been documented in the HPI. ROS Other: All systems not noted in ROS Statement are negative. Past Medical History Past Medical History: Asthma, Diabetes Mellitus, GERD/Reflux, Hypertension, Osteoarthritis (OA), Pneumonia, Sleep Apnea/CPAP/BIPAP Additional Past Medical History / Comment(s): rectal bleeding(internal hemorrhoids), degenerative disc disease, arthritis, no cpap used History of Any Multi-Drug Resistant Organisms: None Reported Past Surgical History: Cholecystectomy Additional Past Surgical History / Comment(s): EGD/Colonoscopy, pain clinic procedure Past Anesthesia/Blood Transfusion Reactions: Motion Sickness Additional Past Anesthesia/Blood Transfusion Reaction / Comment(s): adopted- family hx unknown Past Psychological History: No Psychological Hx Reported Smoking Status: Current every day smoker Past Alcohol Use History: None Reported Past Drug Use History: None Reported - Past Family History Mother History Unknown: Yes Additional Family Medical History / Comment(s): client states he was adopted Father Family Medical History: Unable to Obtain Additional Family Medical History / Comment(s): client states he was adopted General Exam - General Exam Comments Initial Comments: GENERAL: Patient is well-developed and well-nourished. Patient is nontoxic and well- hydrated and is in mild distress. ENT: Neck is soft and supple. No significant lymphadenopathy is noted. Oropharynx is clear. Moist mucous membranes. Neck has full range of motion without eliciting any pain. EYES: The sclera were anicteric and conjunctiva were pink and moist. Extraocular movements were intact and pupils were equal round and reactive to light. Eyelids were unremarkable. PULMONARY: Patient has decreased breath sounds and diffuse wheezing. CARDIOVASCULAR: There is a regular rate and rhythm without any murmurs gallops or rubs. ABDOMEN: Soft and nontender with normal bowel sounds. No palpable organomegaly was noted. There is no palpable pulsatile mass. SKIN: Skin is clear with no lesions or rashes and otherwise unremarkable. NEUROLOGIC: Patient is alert and oriented x3. Cranial nerves II through XII are grossly intact. Motor and sensory are also intact. Normal speech, volume and content. Symmetrical smile. MUSCULOSKELETAL: Normal extremities with adequate strength and full range of motion. No lower extremity swelling or edema. No calf tenderness. LYMPHATICS: No significant lymphadenopathy is noted PSYCHIATRIC: Normal psychiatric evaluation. Limitations: no limitations Course Vital Signs 08/04/18 08/04/18 08/04/18 21:25 21:29 21:30 Temperature 100.4 F H Pulse Rate 120 H 121 H Respiratory 20 29 H Rate Blood Pressure 188/101 188/101 188/101 O2 Sat by Pulse 90 L Oximetry 08/04/18 08/04/18 08/04/18 21:36 21:40 21:45 Temperature 100.3 F H Pulse Rate 113 H 117 H 114 H Respiratory 22 18 Rate Blood Pressure 163/93 163/93 O2 Sat by Pulse 91 L 91 L Oximetry 08/04/18 08/04/18 08/04/18 21:50 22:00 22:04 Temperature 100.2 F H 100.1 F H Pulse Rate 114 H 109 H Respiratory 22 30 H Rate Blood Pressure 153/88 153/88 O2 Sat by Pulse 96 95 Oximetry 08/04/18 08/04/18 08/04/18 22:05 22:10 22:19 Temperature Pulse Rate 114 H 107 H 103 H Respiratory 22 Rate Blood Pressure 159/86 O2 Sat by Pulse 95 Oximetry 08/04/18 08/04/18 08/04/18 22:20 22:28 22:30 Temperature Pulse Rate 107 H 102 H 118 H Respiratory 25 H 30 H Rate Blood Pressure 158/80 158/80 O2 Sat by Pulse 95 91 L Oximetry 08/04/18 22:38 Temperature 99.5 F Pulse Rate Respiratory Rate Blood Pressure O2 Sat by Pulse Oximetry Medical Decision Making - Medical Decision Making EKG shows sinus tachycardia at 102 bpm MD interval 282 QRS is 78 QT interval 334 QTC is 435. Patient's EKG shows no ST segment elevation or depression or T wave abnormalities are noted. I discussed smoking cessation for greater than 3 minutes. The risks of smoking were discussed with the patient including but not limited to risks of cancer, stroke, coronary artery disease and COPD. Also discussed with the patient were multiple methods of quitting smoking. Lastly we discussed the financial costs of smoking. Chest x-ray shows left base infiltrate. I gave the patient 2 consecutive breathing treatments with some steroids and he continued to wheeze and was a little bit improved. I also started the patient on Levaquin. [facility] I wrote admitting orders I continued albuterol steroids and antibiotics on the floor. - Lab Data Result diagrams: 08/04/18 21:39 08/04/18 21:39 Lab Results 08/04/18 08/04/18 08/04/18 Range/Units 21:39 21:39 21:39 WBC 13.7 H (3.8-10.6) k/uL RBC 4.47 (4.30-5.90) m/uL Hgb 14.6 (13.0-17.5) gm/dL Hct 43.4 (39.0-53.0) % MCV 97.1 (80.0-100.0) fL MCH 32.7 (25.0-35.0) pg MCHC 33.7 (31.0-37.0) g/dL RDW 13.7 (11.5-15.5) % Plt Count 285 (150-450) k/uL Neutrophils % 71 % Lymphocytes % 16 % Monocytes % 7 % Eosinophils % 4 % Basophils % 1 % Neutrophils # 9.8 H (1.3-7.7) k/uL Lymphocytes # 2.2 (1.0-4.8) k/uL Monocytes # 1.0 (0-1.0) k/uL Eosinophils # 0.5 (0-0.7) k/uL Basophils # 0.1 (0-0.2) k/uL PT (9.0-12.0) sec INR (<1.2) APTT (22.0-30.0) sec Sodium 140 (137-145) mmol/L Potassium 3.7 (3.5-5.1) mmol/L Chloride 102 (98-107) mmol/L Carbon Dioxide 30 (22-30) mmol/L Anion Gap 8 mmol/L BUN 8 L (9-20) mg/dL Creatinine 0.60 L (0.66-1.25) mg/dL Est GFR (CKD-EPI)AfAm >90 (>60 ml/min/1.73 sqM) Est GFR (CKD-EPI)NonAf >90 (>60 ml/min/1.73 sqM) Glucose 135 H (74-99) mg/dL Plasma Lactic Acid Kyrie 1.7 (0.7-2.0) mmol/L Calcium 8.9 (8.4-10.2) mg/dL Total Bilirubin 0.6 (0.2-1.3) mg/dL AST 22 (17-59) U/L ALT 35 (21-72) U/L Alkaline Phosphatase 67 (38-126) U/L Total Creatine Kinase (55-170) U/L Total Protein 6.5 (6.3-8.2) g/dL Albumin 3.8 (3.5-5.0) g/dL 08/04/18 08/04/18 Range/Units 21:39 21:39 WBC (3.8-10.6) k/uL RBC (4.30-5.90) m/uL Hgb (13.0-17.5) gm/dL Hct (39.0-53.0) % MCV (80.0-100.0) fL MCH (25.0-35.0) pg MCHC (31.0-37.0) g/dL RDW (11.5-15.5) % Plt Count (150-450) k/uL Neutrophils % % Lymphocytes % % Monocytes % % Eosinophils % % Basophils % % Neutrophils # (1.3-7.7) k/uL Lymphocytes # (1.0-4.8) k/uL Monocytes # (0-1.0) k/uL Eosinophils # (0-0.7) k/uL Basophils # (0-0.2) k/uL PT 9.5 (9.0-12.0) sec INR 1.0 (<1.2) APTT 23.5 (22.0-30.0) sec Sodium (137-145) mmol/L Potassium (3.5-5.1) mmol/L Chloride (98-107) mmol/L Carbon Dioxide (22-30) mmol/L Anion Gap mmol/L BUN (9-20) mg/dL Creatinine (0.66-1.25) mg/dL Est GFR (CKD-EPI)AfAm (>60 ml/min/1.73 sqM) Est GFR (CKD-EPI)NonAf (>60 ml/min/1.73 sqM) Glucose (74-99) mg/dL Plasma Lactic Acid Kyrie (0.7-2.0) mmol/L Calcium (8.4-10.2) mg/dL Total Bilirubin (0.2-1.3) mg/dL AST (17-59) U/L ALT (21-72) U/L Alkaline Phosphatase (38-126) U/L Total Creatine Kinase 67 (55-170) U/L Total Protein (6.3-8.2) g/dL Albumin (3.5-5.0) g/dL Disposition Clinical Impression: Asthma with exacerbation, Pneumonia Disposition: ADMITTED IP TO THIS HOSP Is patient prescribed a controlled substance at d/c from ED?: No Referrals: Carlos Henry MD [REFERRING] - 1-2 days Time of Disposition: 23:12
[2018-08-04 21:52] LABS: Basophils # (A) 0.1 k/uL (0-0.2); Basophils % (A) 1 %; Eosinophils # (A) 0.5 k/uL (0-0.7); Eosinophils % (A) 4 %; HCT 43.4 % (39.0-53.0); HGB 14.6 gm/dL (13.0-17.5); Lymphocytes # (A) 2.2 k/uL (1.0-4.8); Lymphocytes % (A) 16 %; MCH 32.7 pg (25.0-35.0); MCHC 33.7 g/dL (31.0-37.0); MCV 97.1 fL (80.0-100.0); Monocytes % (A) 7 %; Neutrophils # (A) 9.8 k/uL (1.3-7.7); Neutrophils % (A) 71 %; Platelet Count 285 k/uL (150-450); RBC 4.47 m/uL (4.30-5.90); RDW 13.7 % (11.5-15.5); WBC 13.7 k/uL (3.8-10.6)
[2018-08-04 22:02] LABS: Partial Thromboplastin Time 23.5 sec (22.0-30.0); Prothrombin Time 9.5 sec (9.0-12.0)
[2018-08-04 22:07] LABS: ALT 35 U/L (21-72); AST 22 U/L (17-59); Albumin 3.8 g/dL (3.5-5.0); Alkaline Phosphatase 67 U/L (38-126); Anion Gap 8 mmol/L; Blood Urea Nitrogen 8 mg/dL (9-20); Calcium 8.9 mg/dL (8.4-10.2); Carbon Dioxide 30 mmol/L (22-30); Chloride 102 mmol/L (98-107); Glucose 135 mg/dL (74-99); Potassium 3.7 mmol/L (3.5-5.1); Sodium 140 mmol/L (137-145); Total Bilirubin 0.6 mg/dL (0.2-1.3); Total Protein 6.5 g/dL (6.3-8.2)
[2018-08-04 22:59] LABS: Creatine Kinase 67 U/L (55-170)
--- NOTE | 2018-08-04 23:00 | XR ---
EXAMINATION TYPE: XR chest 2V DATE OF EXAM: 08/04/2018 COMPARISON: 08/01/2018 HISTORY: Cough difficulty breathing TECHNIQUE: Frontal and lateral views of the chest are obtained. FINDINGS: There is no heart failure nor confluent pneumonic infiltrate. Costophrenic angles are manan r. Heart size is normal. Mediastinum is normal. There is minimal density at the left lung base. This is consistent with scarring. IMPRESSION: No active cardiopulmonary disease. No change.
[2018-08-04] MEDS ORDERED: PNEUMONIA PROTOCOL UTILIZED 1 EACH MISC PO PRN (23:12)
[2018-08-04] MEDS ORDERED: IPRATROPIUM-ALBUTEROL 3 ML NEB INHALATION PRN ×2 (23:12→23:31)
[2018-08-04 23:13] LABS: Creatine Kinase MB 0.9 ng/mL (0.0-2.4); Troponin I <0.012 ng/mL (0.000-0.034)
[2018-08-04 23:16] LABS: Appearance,Urine Clear (Clear); Bilirubin,Urine Negative (Negative); Blood,Urine Negative (Negative); Color,Urine Light Yellow; Glucose,Urine (UA) Negative (Negative); Ketones,Urine Negative (Negative); Leukocyte Esterase,Urine Negative (Negative); Nitrite,Urine Negative (Negative); PH, Urine 6.5 (5.0-8.0); Protein,Urine Negative (Negative); Specific Gravity,Urine 1.006 (1.001-1.035); Urobilinogen,Urine <2.0 mg/dL (<2.0)
[2018-08-04] MEDS ORDERED: ACETAMINOPHEN TAB 500 MG TAB PO PRN (23:29)
[2018-08-04] MEDS ORDERED: IBUPROFEN 800 MG TAB PO PRN (23:29)
[2018-08-04] MEDS ORDERED: LORATADINE 10 MG TAB PO PRN (23:29)
[2018-08-04] MEDS ORDERED: FLUTICASONE 50MCG/SPRAY NASAL 16GM EA NOSTRIL PRN (23:29)
[2018-08-05] MEDS: methylPREDNISolone SOD SUCCI 125 MG/2 ML VIAL IV SCH ×4 (02:23→17:25)
[2018-08-05 07:47] LABS: Glucose,Whole Blood 216 mg/dL (75-99)
[2018-08-05] MEDS: INSULIN ASPART 100 UNIT/ML 1 ML 10 ML VIAL SQ SCH ×4 (08:23→21:07)
[2018-08-05] MEDS: ATORVASTATIN 10 MG TAB PO SCH (08:25)
[2018-08-05] MEDS: VARENICLINE 1 MG TAB PO SCH ×2 (08:25→21:06)
[2018-08-05] MEDS: LISINOPRIL-HCTZ 20-12.5 MG 1 EACH TAB PO SCH (08:25)
[2018-08-05] MEDS: MONTELUKAST 10 MG TAB PO SCH (08:25)
[2018-08-05] MEDS: PANTOPRAZOLE 40 MG TABLET PO SCH (08:25)
[2018-08-05] MEDS: ATENOLOL 50 MG TAB PO SCH (08:26)
[2018-08-05] MEDS: IPRATROPIUM-ALBUTEROL 3 ML NEB INHALATION SCH ×4 (08:42→21:25)
[2018-08-05] MEDS: SYMBICORT 160-4.5 MCG INHALER INHALATION SCH ×2 (08:42→21:24)
--- NOTE | 2018-08-05 10:46 | XR ---
EXAMINATION TYPE: XR chest 2V DATE OF EXAM: 08/05/2018 COMPARISON: 08/04/2018 TECHNIQUE: PA and lateral views submitted. HISTORY: Pneumonia FINDINGS: Subsegmental changes at the left lung base are stable. Right lung clear. No pneumothorax. Biapical pl eural thickening. Hypertrophic change of the spine. IMPRESSION: 1. Left basilar atelectasis or infiltrate stable.
[2018-08-05 11:27] LABS: Hemoglobin A1C 7.9 % (4.0-6.0)
[2018-08-05 11:28] LABS: Glucose,Whole Blood 219 mg/dL (75-99)
[2018-08-05 17:11] LABS: Glucose,Whole Blood 207 mg/dL (75-99)
[2018-08-05 20:14] LABS: Glucose,Whole Blood 255 mg/dL (75-99)
[2018-08-05] MEDS: BUTALB/APAP/CAFF 50-325-40MG TAB PO PRN (21:06)
--- NOTE | 2018-08-05 23:18 | P.HPIM ---
History of Present Illness H&P Date: 08/05/18 Chief Complaint: Shortness of breath Agent is a 38-year-old male with a known history of asthma, currently everyday smoker, hypertension, GERD, osteoarthritis and obstructive sleep apnea and other multiple medical problems came to ER with complaints of worsening shortness of breath. Patient says that he was recently treated for pneumonia with Z-Caleb. Patient states that azithromycin does not work for him. Patient has been having increased cough and green sputum production which made him come to ER. Patient states he feels warm and his had the chills but he was unable to get a temperature because his thermometer was broken. Patient denies any chest pain. Patient denies any palpitations. Patient denies any lightheadedness dizziness or near syncopal episode. Patient denies any headache patient denies numbness weakness. Patient denies abdominal pain patient denies nausea vomiting diarrhea. Initial chest x-ray showed no acute cardio pulmonary process Repeat chest x-ray this morning showed atelectasis/infiltrate. WBC 13.7 on admission. His B A1c 7.9 Review of Systems Constitutional: Patient does have subjective fevers and chills at home.. No generalized weakness or weight loss. Abdomen: Patient denied nausea vomiting and diarrhea and abdominal pain. Cardiovascular: Patient denies any chest pain or short of breath no palpitations. Respiratory: Cough with sputum production and shortness of breath Neurologic: Patient denied any numbness or tingling headache. Musculoskeletal: Patient denies any complaints of joint swelling or deformity. Skin: Negative Psychiatric: Negative Endocrine: No heat or cold intolerance. No recent weight gain. Genitourinary: No dysuria or hematuria. All other 14 point ROS negative except the above Past Medical History Past Medical History: Asthma, Diabetes Mellitus, GERD/Reflux, Hypertension, Osteoarthritis (OA), Pneumonia, Sleep Apnea/CPAP/BIPAP Additional Past Medical History / Comment(s): rectal bleeding(internal hemorrhoids), degenerative disc disease, arthritis, no cpap used History of Any Multi-Drug Resistant Organisms: None Reported Past Surgical History: Cholecystectomy Additional Past Surgical History / Comment(s): EGD/Colonoscopy, pain clinic procedure Past Anesthesia/Blood Transfusion Reactions: Motion Sickness Additional Past Anesthesia/Blood Transfusion Reaction / Comment(s): adopted- family hx unknown Past Psychological History: No Psychological Hx Reported Additional Psychological History / Comment(s): pt stated not on any meds for depression. pt stated he feels good no thoughts of wanting to harm self. Smoking Status: Current every day smoker Past Alcohol Use History: None Reported Additional Past Alcohol Use History / Comment(s): started smoking at age 15(1994 ) smokes 1 ppd Past Drug Use History: None Reported - Past Family History Mother History Unknown: Yes Additional Family Medical History / Comment(s): client states he was adopted Father Family Medical History: Unable to Obtain Additional Family Medical History / Comment(s): client states he was adopted Medications and Allergies Home Medications Medication Instructions Recorded Confirmed Type Lisinopril-Hctz 20-12.5 mg 1 tab PO DAILY 03/03/14 08/04/18 History [Zestoretic 20-12.5] Omeprazole [PriLOSEC] 20 mg PO DAILY 03/03/14 08/04/18 History Fluticasone Nasal [place] [Flonase 2 sprays EA NOSTRIL DAILY PRN 05/03/15 History Nasal [place]] Ibuprofen [Motrin] 800 mg PO Q8H PRN 05/03/15 08/04/18 History Cetirizine HCl [Zyrtec] 10 mg PO DAILY PRN 05/26/17 08/04/18 History Montelukast [Singulair] 10 mg PO DAILY 05/26/17 08/04/18 History Atenolol [Tenormin] 50 mg PO DAILY 01/27/18 08/04/18 History Azithromycin [Zithromax Z-pack] See Taper PO DIRECTED 01/27/18 08/04/18 History glipiZIDE XL [Glucotrol XL] 5 mg PO DAILY 01/27/18 08/04/18 History Albuterol Inhaler [Ventolin Hfa 1 - 2 puff INHALATION RT-Q4H PRN 01/30/18 Rx Inhaler] #1 inhaler Acetaminophen Tab [Tylenol Tab] 1,000 mg PO Q6H PRN 08/04/18 08/04/18 History Albuterol Nebulized [Ventolin 2.5 mg INHALATION RT-QID PRN 08/04/18 08/04/18 History Nebulized] Atorvastatin Calcium [Lipitor] 10 mg PO DAILY 08/04/18 08/04/18 History Budesonide/Formoterol Fumarate 2 puff INHALATION RT-BID 08/04/18 08/04/18 History [Symbicort 160-4.5 Mcg Inhaler] Butalb/APAP/Caff 50-325-40Mg 1 tab PO Q6H PRN 08/04/18 08/04/18 History [Fioricet 50-325-40] Varenicline [Chantix Continuing 1 mg PO BID 08/04/18 08/04/18 History Pack] Allergies Allergy/AdvReac Type Severity Reaction Status Date / Time No Known Allergies Allergy Verified 08/04/18 21:45 Physical Exam Vitals: Vital Signs Temp Pulse Pulse Resp BP BP Pulse Ox 08/05/18 12:21 67 08/05/18 12:12 75 08/05/18 11:56 98.0 F 74 165/79 93 L 08/05/18 08:43 92 20 08/05/18 08:40 88 08/05/18 08:30 92 20 08/05/18 06:05 97.8 F 85 18 146/86 93 L 08/05/18 00:23 98.6 F 96 18 186/92 93 L 08/04/18 23:23 99.2 F 101 H 18 171/85 91 L 08/04/18 22:38 99.5 F 08/04/18 22:30 118 H 30 H 158/80 91 L 08/04/18 22:28 102 H 08/04/18 22:20 107 H 25 H 158/80 95 08/04/18 22:19 103 H 08/04/18 22:10 107 H 22 159/86 95 08/04/18 22:05 114 H 08/04/18 22:04 100.1 F H 08/04/18 22:00 109 H 30 H 153/88 95 08/04/18 21:50 100.2 F H 114 H 22 153/88 96 08/04/18 21:45 114 H 08/04/18 21:40 117 H 18 163/93 91 L 08/04/18 21:36 100.3 F H 113 H 22 163/93 91 L 08/04/18 21:30 121 H 29 H 188/101 08/04/18 21:29 188/101 08/04/18 21:25 100.4 F H 120 H 20 188/101 90 L Intake and Output 08/04/18 08/05/18 08/05/18 22:59 06:59 14:59 Other: Voiding Method Toilet Toilet # Voids 1 Weight 145.15 kg 145.15 kg PHYSICAL EXAMINATION: Patient is lying in the bed comfortably, no acute distress, awake alert and oriented. Morbidly obese. HEENT: Normocephalic. Neck is supple. Pupils reactive. Nostrils clear. Oral cavity is moist. Ears reveal no drainage. Neck reveals no JVD, carotid bruits, or thyromegaly. CHEST EXAMINATION: Trachea is central. Symmetrical expansion. Bilateral diffuse rhonchi and wheezing. Nonlabored breathing. CARDIAC: Normal S1, S2 with no gallops. No murmurs ABDOMEN: Soft. Bowel sounds normal. No organomegaly. No abdominal bruits. Extremities: reveal no edema. No clubbing or cyanosis Neurologically awake, alert, oriented x3 with well-coordinated movements. No focal deficits noted Skin: No rash or skin lesions. Psychiatric: Coperative. Nonsuicidal Musculoskeletal: No joint swelling or deformity. Normal range of motion. Results CBC & Chem 7: 08/04/18 21:39 08/04/18 21:39 Labs: Abnormal Lab Results - Last 24 Hours (Table) 08/04/18 08/04/18 08/04/18 Range/Units 21:39 21:39 21:39 WBC 13.7 H (3.8-10.6) k/uL Neutrophils # 9.8 H (1.3-7.7) k/uL BUN 8 L (9-20) mg/dL Creatinine 0.60 L (0.66-1.25) mg/dL Glucose 135 H (74-99) mg/dL POC Glucose (mg/dL) (75-99) mg/dL Hemoglobin A1c 7.9 H (4.0-6.0) % 08/05/18 08/05/18 Range/Units 07:45 11:27 WBC (3.8-10.6) k/uL Neutrophils # (1.3-7.7) k/uL BUN (9-20) mg/dL Creatinine (0.66-1.25) mg/dL Glucose (74-99) mg/dL POC Glucose (mg/dL) 216 H 219 H (75-99) mg/dL Hemoglobin A1c (4.0-6.0) % Microbiology - Last 24 Hours (Table) 08/04/18 22:40 Urine Culture - Preliminary Urine,Voided Thrombosis Risk Factor Assmnt - DVT/VTE Prophylaxis DVT/VTE Prophylaxis: Pharmacologic Prophylaxis ordered - Choose All That Apply Any of the Below Risk Factors Present?: Yes Each Factor Represents 1 point: Abnormal pulmonary function (COPD), Obesity ( BMI >25) Other Risk Factors: No Thrombosis Risk Factor Assessment Total Risk Factor Score: 2 Thrombosis Risk Factor Assessment Level: Low Risk Assessment and Plan Assessment: Acute asthma exacerbation Tracheobronchitis and possible pneumonia Diabetes type 2 with hyperglycemia and uncontrolled with his B A1c 7.9 Nicotine addiction GERD Hypertension Osteoarthritis Recently treated for pneumonia Obstructive sleep apnea on CPAP at home Morbid obesity BMI 44.6 GI and DVT prophylaxis Plan: Patient will be continued on DuoNeb's and steroids in the form of methylprednisolone 60 mg every 6 hourly. Continue with antibiotics in the form of levofloxacin. Continue the home hypoglycemic agents and insulin sliding scale due to steroids. Smoking cessation has been counseled extensively. We will continue the home medications and further recommendations based on the clinical course. Time with Patient: Greater than 30
[2018-08-06] MEDS: methylPREDNISolone SOD SUCCI 125 MG/2 ML VIAL IV SCH ×5 (00:35→23:42)
[2018-08-06] MEDS: HEPARIN SODIUM,PORCINE 5,000 UNIT/ML 1 ML VIAL SQ SCH ×4 (00:36→23:43)
[2018-08-06 07:00] LABS: Glucose,Whole Blood 230 mg/dL (75-99)
[2018-08-06] MEDS: IPRATROPIUM-ALBUTEROL 3 ML NEB INHALATION SCH ×4 (08:16→19:42)
[2018-08-06] MEDS: SYMBICORT 160-4.5 MCG INHALER INHALATION SCH ×2 (08:16→19:42)
[2018-08-06 08:59] LABS: Basophils % (A) 0 %; Eosinophils # (A) 0.1 k/uL (0-0.7); Eosinophils % (A) 1 %; HCT 43.5 % (39.0-53.0); HGB 14.4 gm/dL (13.0-17.5); Lymphocytes # (A) 1.2 k/uL (1.0-4.8); Lymphocytes % (A) 9 %; MCH 32.5 pg (25.0-35.0); MCV 98.6 fL (80.0-100.0); Mean Platelet Volume 7.1; Monocytes # (A) 0.3 k/uL (0-1.0); Monocytes % (A) 3 %; Neutrophils # (A) 11.6 k/uL (1.3-7.7); Neutrophils % (A) 87 %; Platelet Count 311 k/uL (150-450); RBC 4.42 m/uL (4.30-5.90); RDW 13.6 % (11.5-15.5); WBC 13.3 k/uL (3.8-10.6)
[2018-08-06 09:17] LABS: Anion Gap 9 mmol/L; Blood Urea Nitrogen 20 mg/dL (9-20); Calcium 9.2 mg/dL (8.4-10.2); Carbon Dioxide 29 mmol/L (22-30); Chloride 102 mmol/L (98-107); Glucose 329 mg/dL (74-99); Potassium 4.9 mmol/L (3.5-5.1); Sodium 140 mmol/L (137-145)
[2018-08-06] MEDS: ATENOLOL 50 MG TAB PO SCH (09:22)
[2018-08-06] MEDS: ATORVASTATIN 10 MG TAB PO SCH (09:23)
[2018-08-06] MEDS: LEVOFLOXACIN 750 MG TAB PO SCH (09:24)
[2018-08-06] MEDS: LISINOPRIL-HCTZ 20-12.5 MG 1 EACH TAB PO SCH (09:25)
[2018-08-06] MEDS: MONTELUKAST 10 MG TAB PO SCH (09:25)
[2018-08-06] MEDS: PANTOPRAZOLE 40 MG TABLET PO SCH (09:27)
[2018-08-06] MEDS: VARENICLINE 1 MG TAB PO SCH ×2 (09:27→20:29)
[2018-08-06 11:17] LABS: Glucose,Whole Blood 318 mg/dL (75-99)
[2018-08-06] MEDS: INSULIN ASPART 100 UNIT/ML 1 ML 10 ML VIAL SQ SCH ×4 (11:40→20:29)
--- NOTE | 2018-08-06 13:10 | P.PN ---
Subjective Progress Note Date: 08/06/18 Principal diagnosis: Severe acute exacerbation of asthma Severe tracheobronchitis and pneumonia Hyperglycemia without acidosis 08/06/2018 Patient is seen and evaluated in the room at bedside; patient relates he's been feeling improved and wants to be discharged home; we did discuss continued severe bronchospasm and continued need for bronchodilator and steroid nebulizer treatments along with continuing the methylprednisone 60 mg every 6 hours; we plan to continue of treatment for that of the 24 hours and we'll monitor patient again tomorrow morning if possible discharge if patient continues to show improvement; patient will remain on levofloxacin orally which will again be continued upon discharge to complete a course of 5-7 days; we will continue Accu-Cheks with insulin sliding scale protocol Objective - Vital Signs Vital signs: Vital Signs Temp 97.2 F L 08/06/18 05:00 Pulse 92 08/06/18 09:01 Resp 20 08/06/18 09:39 BP 141/71 08/06/18 09:01 Pulse Ox 92 L 08/06/18 09:01 Intake & Output 08/05/18 08/06/18 08/06/18 18:59 06:59 18:59 Intake Total 1760 590 20 Balance 1760 590 20 Intake: IV 20 Invasive Line 2 20 Oral 1760 590 Other: Voiding Method Toilet Toilet Toilet # Voids 3 2 2 - Exam Patient is lying in the bed comfortably, no acute distress, awake alert and oriented. Morbidly obese. HEENT: Normocephalic. Neck is supple. Pupils reactive. Nostrils clear. Oral cavity is moist. Ears reveal no drainage. Neck reveals no JVD, carotid bruits, or thyromegaly. CHEST EXAMINATION: Trachea is central. Symmetrical expansion. Decreased air entry with Bilateral diffuse rhonchi and wheezing. Nonlabored breathing. CARDIAC: Normal S1, S2 with no gallops. No murmurs ABDOMEN: Soft. Bowel sounds normal. No organomegaly. No abdominal bruits. Extremities: reveal no edema. No clubbing or cyanosis Neurologically awake, alert, oriented x3 with well-coordinated movements. No focal deficits noted Skin: No rash or skin lesions. Psychiatric: Coperative. Nonsuicidal Musculoskeletal: No joint swelling or deformity. Normal range of motion. - Labs CBC & Chem 7: 08/06/18 08:39 08/06/18 08:39 Labs: Abnormal Lab Results - Last 24 Hours (Table) 08/04/18 08/05/18 08/05/18 Range/Units 21:39 11:27 17:10 WBC (3.8-10.6) k/uL Neutrophils # (1.3-7.7) k/uL Glucose (74-99) mg/dL POC Glucose (mg/dL) 219 H 207 H (75-99) mg/dL Hemoglobin A1c 7.9 H (4.0-6.0) % 08/05/18 08/06/18 08/06/18 Range/Units 20:13 06:59 08:39 WBC 13.3 H (3.8-10.6) k/uL Neutrophils # 11.6 H (1.3-7.7) k/uL Glucose (74-99) mg/dL POC Glucose (mg/dL) 255 H 230 H (75-99) mg/dL Hemoglobin A1c (4.0-6.0) % 08/06/18 Range/Units 08:39 WBC (3.8-10.6) k/uL Neutrophils # (1.3-7.7) k/uL Glucose 329 H (74-99) mg/dL POC Glucose (mg/dL) (75-99) mg/dL Hemoglobin A1c (4.0-6.0) % Microbiology - Last 24 Hours (Table) 08/05/18 08:00 Gram Stain - Preliminary Sputum 08/04/18 22:40 Urine Culture - Final Urine,Voided 08/04/18 21:39 Blood Culture - Preliminary Blood No Growth after 24 hours Assessment and Plan Assessment: 1. Acute asthma exacerbation 2. Tracheobronchitis and possible pneumonia 3. Diabetes type 2 with hyperglycemia and uncontrolled with his B A1c 7.9 4. Nicotine addiction 5. GERD 6. Hypertension 7. Osteoarthritis 8. Recently treated for pneumonia 9. Obstructive sleep apnea on CPAP at home 10. Morbid obesity BMI 44.6 11. GI and DVT prophylaxis Plan: Patient will be continued on DuoNeb's and steroids in the form of methylprednisolone 60 mg every 6 hourly. Continue with antibiotics in the form of levofloxacin. Continue the home hypoglycemic agents and insulin sliding scale due to steroids. Smoking cessation has been counseled extensively. We will continue the home medications and further recommendations based on the clinical course.
[2018-08-06 17:16] LABS: Glucose,Whole Blood 320 mg/dL (75-99)
[2018-08-06 19:54] LABS: Glucose,Whole Blood 316 mg/dL (75-99)
[2018-08-06] MEDS: BUTALB/APAP/CAFF 50-325-40MG TAB PO PRN (20:35)
[2018-08-07] MEDS: methylPREDNISolone SOD SUCCI 125 MG/2 ML VIAL IV SCH ×2 (06:05→13:05)
[2018-08-07 06:56] LABS: Glucose,Whole Blood 287 mg/dL (75-99)
[2018-08-07 07:27] LABS: Basophils % (A) 0 %; Eosinophils # (A) 0.1 k/uL (0-0.7); Eosinophils % (A) 1 %; HCT 43.7 % (39.0-53.0); HGB 14.3 gm/dL (13.0-17.5); Lymphocytes # (A) 1.3 k/uL (1.0-4.8); Lymphocytes % (A) 9 %; MCH 31.7 pg (25.0-35.0); MCHC 32.6 g/dL (31.0-37.0); MCV 97.3 fL (80.0-100.0); Mean Platelet Volume 7.1; Monocytes # (A) 0.7 k/uL (0-1.0); Monocytes % (A) 5 %; Neutrophils # (A) 12.7 k/uL (1.3-7.7); Neutrophils % (A) 85 %; Platelet Count 340 k/uL (150-450); RBC 4.49 m/uL (4.30-5.90); RDW 13.4 % (11.5-15.5)
[2018-08-07 07:51] LABS: Anion Gap 7 mmol/L; Blood Urea Nitrogen 22 mg/dL (9-20); Calcium 9.3 mg/dL (8.4-10.2); Carbon Dioxide 30 mmol/L (22-30); Chloride 102 mmol/L (98-107); Glucose 276 mg/dL (74-99); Potassium 4.6 mmol/L (3.5-5.1); Sodium 139 mmol/L (137-145)
[2018-08-07] MEDS: INSULIN ASPART 100 UNIT/ML 1 ML 10 ML VIAL SQ SCH ×2 (08:04→13:05)
[2018-08-07] MEDS: HEPARIN SODIUM,PORCINE 5,000 UNIT/ML 1 ML VIAL SQ SCH (08:04)
[2018-08-07] MEDS: VARENICLINE 1 MG TAB PO SCH (08:05)
[2018-08-07] MEDS: ATORVASTATIN 10 MG TAB PO SCH (08:05)
[2018-08-07] MEDS: LEVOFLOXACIN 750 MG TAB PO SCH (08:05)
[2018-08-07] MEDS: MONTELUKAST 10 MG TAB PO SCH (08:05)
[2018-08-07] MEDS: LISINOPRIL-HCTZ 20-12.5 MG 1 EACH TAB PO SCH (08:05)
[2018-08-07] MEDS: ATENOLOL 50 MG TAB PO SCH (08:05)
[2018-08-07] MEDS: PANTOPRAZOLE 40 MG TABLET PO SCH (08:05)
[2018-08-07] MEDS: SYMBICORT 160-4.5 MCG INHALER INHALATION SCH (08:59)
[2018-08-07] MEDS: IPRATROPIUM-ALBUTEROL 3 ML NEB INHALATION SCH ×2 (08:59→12:16)
[2018-08-07 11:13] LABS: Glucose,Whole Blood 325 mg/dL (75-99)
[2018-08-07 12:46] VITALS: BP 155/80; PULSE 68; RESP 18; TEMP 97.9
== END 2018-08-07 14:40 | disposition home or self-care (01) | DRG 194 ==
LOC: EC 21:21 → 3NMEDONC 23:12
PROVIDERS: ADMIT Hospitalist; ATTEND Hospitalist
DX: J18.9 Pneumonia, unspecified organism (principal); J45.901 Unspecified asthma with (acute) exacerbation; Z68.41 Body mass index [BMI] 40.0-44.9, adult; E11.65 Type 2 diabetes mellitus with hyperglycemia; E66.01 Morbid (severe) obesity due to excess calories; F17.200 Nicotine dependence, unspecified, uncomplicated; G47.33 Obstructive sleep apnea (adult) (pediatric); I10 Essential (primary) hypertension; K21.9 Gastro-esophageal reflux disease without esophagitis; M19.90 Unspecified osteoarthritis, unspecified site; Z79.51 Long term (current) use of inhaled steroids; Z79.84 Long term (current) use of oral hypoglycemic drugs; Z87.01 Personal history of pneumonia (recurrent)
CPT/HCPCS: 36415; 71046; 80048; 80053; 81003; 82550; 82553; 83036; 83605; 84484; 85025; 85610; 85730; 87040; 87070; 87086; 87205; 93005; 94640; 94644; 94760; 96365; 96367; 99285

== ENCOUNTER → 2019-06-17 | Outpatient (CLI) | payer OTHER | END | disposition home or self-care (01) | LOC: RADMRIMAIN 08:02 | PROVIDERS: ATTEND Pediatrics | DX: Z53.9 Procedure and treatment not carried out, unspecified reason (principal) ==

== ENCOUNTER 2020-03-16 22:54 | Emergency (ER) | payer OTHER ==
[2020-03-16 23:12] VITALS: BP 153/90; PULSE 82; RESP 16; TEMP 98.2
--- NOTE | 2020-03-16 23:30 | ED ---
General Adult HPI - General Chief complaint: Extremity Injury, Lower Stated complaint: Leg pain Time Seen by Provider: 03/16/20 23:21 Source: patient, RN notes reviewed, old records reviewed Mode of arrival: wheelchair Limitations: no limitations - History of Present Illness Initial comments: Patient is a 40-year-old male presents today with left foot pain and strain after rolling his left ankle today. This happened around 2 PM.. He reports he has bad knees and occasionally give out. Patient states that he is Rakesh seen orthopedic for this. He denies any knee pain at this time. He does report some swelling over the dorsum of the foot and mainly the pain is over the fourth and fifth metatarsal. He reports full range of motion of the toes and normal sensation distally. - Related Data Home Medications Medication Instructions Recorded Confirmed Lisinopril-Hctz 20-12.5 mg 1 tab PO DAILY 03/03/14 08/04/18 [Zestoretic 20-12.5] Omeprazole [PriLOSEC] 20 mg PO DAILY 03/03/14 08/04/18 Fluticasone Nasal [place] [Flonase 2 sprays EA NOSTRIL DAILY PRN 05/03/15 08/04/18 Nasal [place]] Ibuprofen [Motrin] 800 mg PO Q8H PRN 05/03/15 08/04/18 Cetirizine HCl [Zyrtec] 10 mg PO DAILY PRN 05/26/17 08/04/18 Montelukast [Singulair] 10 mg PO DAILY 05/26/17 08/04/18 Atenolol [Tenormin] 50 mg PO DAILY 01/27/18 08/04/18 Azithromycin [Zithromax Z-pack] See Taper PO DIRECTED 01/27/18 08/04/18 glipiZIDE XL [Glucotrol XL] 5 mg PO DAILY 01/27/18 08/04/18 Acetaminophen Tab [Tylenol] 1,000 mg PO Q6H PRN 08/04/18 08/04/18 Albuterol Nebulized [Ventolin 2.5 mg INHALATION RT-QID PRN 08/04/18 08/04/18 Nebulized] Atorvastatin Calcium [Lipitor] 10 mg PO DAILY 08/04/18 08/04/18 Budesonide/Formoterol Fumarate 2 puff INHALATION RT-BID 08/04/18 08/04/18 [Symbicort 160-4.5 Mcg Inhaler] Butalb/APAP/Caff 50-325-40Mg 1 tab PO Q6H PRN 08/04/18 08/04/18 [Fioricet 50-325-40] Varenicline [Chantix Continuing 1 mg PO BID 08/04/18 08/04/18 Pack] Previous Rx's Medication Instructions Recorded Albuterol Inhaler (Mhu) [Ventolin 1 - 2 puff INHALATION RT-Q4H PRN 01/30/18 Hfa Inhaler (Mhu)] #1 inhaler Levofloxacin [Levaquin] 750 mg PO DAILY #7 tab 08/07/18 predniSONE See Taper PO DIRECTED #20 tab 08/07/18 Naproxen [EC-Naproxen] 500 mg PO BID #20 tablet. 03/17/20 Allergies Allergy/AdvReac Type Severity Reaction Status Date / Time No Known Allergies Allergy Verified 03/16/20 23:12 Review of Systems ROS Statement: Those systems with pertinent positive or pertinent negative responses have been documented in the HPI. ROS Other: All systems not noted in ROS Statement are negative. Past Medical History Past Medical History: Asthma, Diabetes Mellitus, GERD/Reflux, Hypertension, Osteoarthritis (OA), Pneumonia, Sleep Apnea/CPAP/BIPAP Additional Past Medical History / Comment(s): rectal bleeding(internal hemorrhoids), degenerative disc disease, arthritis, no cpap used History of Any Multi-Drug Resistant Organisms: None Reported Past Surgical History: Cholecystectomy Additional Past Surgical History / Comment(s): EGD/Colonoscopy, pain clinic procedure Past Anesthesia/Blood Transfusion Reactions: Motion Sickness Additional Past Anesthesia/Blood Transfusion Reaction / Comment(s): adopted- family hx unknown Past Psychological History: No Psychological Hx Reported Smoking Status: Current every day smoker Past Alcohol Use History: None Reported Past Drug Use History: None Reported - Past Family History Mother History Unknown: Yes Additional Family Medical History / Comment(s): client states he was adopted Father Family Medical History: Unable to Obtain Additional Family Medical History / Comment(s): client states he was adopted General Exam - General Exam Comments Initial Comments: Alert and oriented 40-year-old male. No significant distress. Limitations: no limitations General appearance: alert, in no apparent distress Head exam: Present: atraumatic, normocephalic, normal inspection Eye exam: Present: normal appearance, PERRL, EOMI. Absent: scleral icterus, conjunctival injection, periorbital swelling ENT exam: Present: normal exam, mucous membranes moist Neck exam: Present: normal inspection. Absent: tenderness, meningismus, lymphadenopathy Respiratory exam: Present: normal lung sounds bilaterally. Absent: respiratory distress, wheezes, rales, rhonchi, stridor Cardiovascular Exam: Present: regular rate, normal rhythm, normal heart sounds. Absent: systolic murmur, diastolic murmur, rubs, gallop, clicks GI/Abdominal exam: Present: soft, normal bowel sounds. Absent: distended, tenderness, guarding, rebound, rigid Extremities exam: Present: normal inspection, full ROM, normal capillary refill. Absent: tenderness, pedal edema, joint swelling, calf tenderness Left Knee exam: Present: normal inspection, full ROM Lower Leg exam: Present: normal inspection, full ROM Ankle exam: Present: normal inspection, full ROM Foot/Toe exam: Present: full ROM, tenderness, swelling (over proximal 4thand 5th metatarsal ). Absent: normal inspection Neurovascular tendon exam: Absent: no vascular compromise Gait: observed and normal Back exam: Present: normal inspection Neurological exam: Present: alert, oriented X3, CN II-XII intact Psychiatric exam: Present: normal affect, normal mood Skin exam: Present: warm, dry, intact, normal color. Absent: rash Course Vital Signs 03/16/20 23:09 Temperature 98.2 F Pulse Rate 82 Respiratory 16 Rate Blood Pressure 153/90 O2 Sat by Pulse 97 Oximetry Medical Decision Making - Medical Decision Making 40-year-old male presents emergency department today with swelling over the dorsum of the left foot and ankle after twisting it. Patient at this time and is neurovascularly intact range of motion of the toes. Does have some tenderness and swelling palpation over the distal fourth and fifth metatarsal. X-rays are negative for fracture. Patient is placed in a ankle stirrup Aircast and Eduin wrap. Advised following up with orthopedic & for crutches. QUESTIONS answered return parameters were discussed. - Radiology Data Radiology results: report reviewed Foot and ankle X-ray shows calcaneal spurring. No fracture. Disposition Clinical Impression: Foot sprain, Ankle sprain Disposition: HOME SELF-CARE Condition: Good Instructions (If sedation given, give patient instructions): Foot Sprain (ED) Additional Instructions: Patient advised to today with crutches. Wear the Eduin wrap to help with swelling and using the ankle stirrup splint to help with support. If symptoms continue to persist. Follow-up with orthopedic. Take anti-inflammatory medication and ice the foot and ankle for pain. Prescriptions: Naproxen [EC-Naproxen] 500 mg PO BID #20 tablet.dr Is patient prescribed a controlled substance at d/c from ED?: No Referrals: Carlos Henry MD [Primary Care Provider] - 1-2 days Henri Gallegos MD [STAFF PHYSICIAN] - 1-2 days Time of Disposition: 00:05
--- NOTE | 2020-03-16 23:55 | XR ---
EXAMINATION TYPE: XR ankle complete LT DATE OF EXAM: 03/16/2020 COMPARISON: NONE HISTORY: Twisted ankle TECHNIQUE: 3 views FINDINGS: There is an Achilles calcaneal spur. Ankle mortise is anatomic. I see no fracture. IMPRESSION: Calcaneal spurring. No fracture seen.
--- NOTE | 2020-03-16 23:56 | XR ---
EXAMINATION TYPE: XR foot complete LT DATE OF EXAM: 03/16/2020 COMPARISON: NONE HISTORY: Twisted ankle. Pain. TECHNIQUE: 3 views FINDINGS: There is an Achilles calcaneal spur. Metatarsals are intact. I see no fracture nor dislocat ion. Joint spaces appear normal. IMPRESSION: Calcaneal spurring. No fracture seen.
== END 2020-03-17 00:38 | disposition home or self-care (01) ==
LOC: EC 22:54
DX: S93.402A Sprain of unspecified ligament of left ankle, initial encounter (principal); S93.602A Unspecified sprain of left foot, initial encounter; J45.909 Unspecified asthma, uncomplicated; E11.9 Type 2 diabetes mellitus without complications; K21.9 Gastro-esophageal reflux disease without esophagitis; I10 Essential (primary) hypertension; F17.200 Nicotine dependence, unspecified, uncomplicated; Z79.51 Long term (current) use of inhaled steroids; Z79.84 Long term (current) use of oral hypoglycemic drugs; Z79.899 Other long term (current) drug therapy; X50.1XXA Overexertion from prolonged static or awkward postures, initial encounter
CPT/HCPCS: 29515; 99284

== ENCOUNTER → 2020-12-28 | Outpatient (CLI) | payer OTHER ==
--- NOTE | 2020-12-28 11:49 | US ---
EXAMINATION TYPE: US chest DATE OF EXAM: 12/28/2020 COMPARISON: NONE CLINICAL HISTORY: 40-year-old male M79.89 Soft Tissue mass left chest. Palpable lump left chest x 1 m onth TECHNIQUE: Multiple sonographic images targeted to the patient's left chest palpable site. FINDINGS: Installment Agent notes: Left chest at palpable: 1.2 x 1.0 x 1.7cm superficial hyperechoic area seen, possible lipoma, within the subcutaneous adipose layer just deep to the skin Right chest at palpable: no abnormality seen at this time IMPRESSION: 1. Targeted scanning at the patient's palpable site along the left side of the chest shows a 1.7 x 1. 2 cm echogenic lesion in the subcutaneous adipose layer just deep to the skin suspected to represent a lipoma. 3 month follow-up ultrasound to reassess. If there is growth or the area is symptomatic, co nsider surgical evaluation. 2. Targeted scanning at the patient's palpable site along the right side of the chest shows no discre te sonographic abnormality. If any growth is noted, the area can be rescanned.
== END | disposition home or self-care (01) ==
LOC: RADUSWWP 09:44
PROVIDERS: ATTEND Pediatrics
DX: J98.8 Other specified respiratory disorders (principal)

== ENCOUNTER → 2021-01-11 | Outpatient (CLI) | payer OTHER ==
--- NOTE | 2021-01-30 11:38 | ECHOF ---
Referral Reason:R00.2 Palpitations MEASUREMENTS -------- HEIGHT: 180.3 cm WEIGHT: 149.7 kg BP: RVIDd: 3.7 cm (< 3.3) IVSd: 1.1 cm (0.6 - 1.1) LVIDd: 4.2 cm (3.9 - 5.3) LVPWd: 1.6 cm (0.6 - 1.1) IVSs: 2.0 cm LVIDs: 2.1 cm LVPWs: 2.0 cm LAESV Index (A-L): 14.79 ml/m Ao Diam: 3.3 cm (2.0 - 3.7) AV Cusp: 2.4 cm (1.5 - 2.6) LA Diam: 3.3 cm (2.7 - 3.8) MV EXCURSION: 12.777 mm (> 18.000) MV EF SLOPE: 55 mm/s (70 - 150) EPSS: 1.0 cm MV E Naren: 0.71 m/s MV DecT: 149 ms MV A Naren: 0.52 m/s MV E/A Ratio: 1.37 RAP: 5.00 mmHg RVSP: 13.49 mmHg FINDINGS -------- This was a technically adequate study. The left ventricular size is normal. There is mild concentric left ventricular hypertrophy. Overa ll left ventricular systolic function is normal with, an EF between 55 - 60 %. The diastolic fillin g pattern is normal for the age of the patient 8.74. The right ventricle is mildly enlarged. The left atrial size is normal. Normal LA size by volume 22+/-6 ml/m2. The right atrial size is normal. The aortic valve is trileaflet and appears structurally normal. The mitral valve is normal. There is trace mitral regurgitation. The tricuspid valve appears structurally normal. Trace tricuspid regurgitation present. Right dani tricular systolic pressure is normal at < 35 mmHg. There is no pulmonic regurgitation present. The aortic root size is normal. Normal inferior vena cava with normal inspiratory collapse consistent with estimated right atrial pre ssure of 5 mmHg. There is no pericardial effusion. CONCLUSIONS -------- 1. The left ventricular size is normal. 2. There is mild concentric left ventricular hypertrophy. 3. Overall left ventricular systolic function is normal with, an EF between 55 - 60 %. 4. The diastolic filling pattern is normal for the age of the patient 8.74 5. The right ventricle is mildly enlarged. 6. There is trace mitral regurgitation. 7. Trace tricuspid regurgitation present. 8. There is no pulmonic regurgitation present. 9. There is no pericardial effusion. SACK KEEPER: Paulette Cano RDCS
== END | disposition home or self-care (01) ==
LOC: RADECHMAIN 11:35
PROVIDERS: ATTEND Pediatrics
DX: I08.1 Rheumatic disorders of both mitral and tricuspid valves (principal)
CPT/HCPCS: 93225; 93226; 93306

== ENCOUNTER → 2021-04-12 | Outpatient (CLI) | payer OTHER ==
--- NOTE | 2021-04-12 16:22 | XR ---
EXAMINATION TYPE: XR chest 2V DATE OF EXAM: 04/12/2021 COMPARISON: Chest x-ray 08/05/2018 HISTORY: R05 TECHNIQUE: Frontal and lateral views of the chest are obtained. FINDINGS: There is no focal air space opacity, pleural effusion, or pneumothorax seen. The cardiac silhouette size is within normal limits. Prominent lung volumes may be indicative of underlying COPD . The osseous structures are intact. IMPRESSION: No acute cardiopulmonary process.
== END | disposition home or self-care (01) ==
LOC: RADXRMAIN 14:22
PROVIDERS: ATTEND Physician Assistant
DX: R05 Cough (principal)
CPT/HCPCS: 71046

== ENCOUNTER → 2021-12-16 | Outpatient (CLI) | payer OTHER ==
--- NOTE | 2021-12-16 16:48 | US ---
EXAMINATION TYPE: US scrotum with doppler. Grayscale and color Doppler Duplex imaging performed of delvis chambers scrotum. DATE OF EXAM: 12/16/2021 COMPARISON: NONE CLINICAL HISTORY: N50.819 TESTICULAR PAIN, UNSPECIFIED. Left testicular pain x couple years EXAM MEASUREMENTS: TESTICLES: Right Testicle: 4.6 x 2.7 x 3.1 cm Left Testicle: 4.4 x 2.7 x 3.0 cm EPIDIDYMIS HEAD: Right Epididymis: 2.6 cm Left Epididymis: 1.7 cm Doppler performed to assess for testicular vascularity; good bilateral arterial color flow and wavefo kimber are seen, unable to obtain venous flow within the testicles Presence of hydroceles: right 6.6cm, left 6.2cm with 0.7cm echogenic focus Presence of varicoceles: no There appears to be symmetrical blood flow by color flow sonography. IMPRESSION: 1. Bilateral hydroceles. 2. Arterial flow was demonstrated. There is poor demonstration of venous flow however.
== END | disposition home or self-care (01) ==
LOC: RADUSWWP 11:07
PROVIDERS: ATTEND Pediatrics
DX: N43.3 Hydrocele, unspecified (principal)
CPT/HCPCS: 76870; 93975

== ENCOUNTER 2022-01-08 18:13 | Observation (INO) | payer OTHER ==
--- NOTE | 2022-01-08 20:07 | XR ---
EXAMINATION TYPE: XR chest 2V DATE OF EXAM: 01/08/2022 7:59 PM COMPARISON:Chest radiographs from 04/12/2021. TECHNIQUE: XR chest 2V Frontal and lateral views of the chest. CLINICAL INDICATION:Male, 41 years old with history of difficulty breathing; FINDINGS: Lungs/Pleura: There is no evidence of pleural effusion, focal consolidation, or pneumothorax. Pulmonary vascularity: Unremarkable. Heart/mediastinum: Cardiomediastinal silhouette is unremarkable. Musculoskeletal: No acute osseous pathology. Were IMPRESSION: No acute cardiopulmonary disease/process.
[2022-01-08 20:14] LABS: Basophils # (A) 0.1 k/uL (0-0.2); Basophils % (A) 0 %; Eosinophils # (A) 0.3 k/uL (0-0.7); Eosinophils % (A) 2 %; HGB 15.5 gm/dL (13.0-17.5); Lymphocytes # (A) 3.3 k/uL (1.0-4.8); Lymphocytes % (A) 19 %; MCH 33.5 pg (25.0-35.0); MCV 101.6 fL (80.0-100.0); Macrocytosis Slight; Mean Platelet Volume 7.6; Monocytes # (A) 0.8 k/uL (0-1.0); Monocytes % (A) 5 %; Neutrophils # (A) 12.6 k/uL (1.3-7.7); Neutrophils % (A) 73 %; Platelet Count 247 k/uL (150-450); RBC 4.63 m/uL (4.30-5.90); RDW 13.8 % (11.5-15.5); WBC 17.3 k/uL (3.8-10.6)
[2022-01-08 20:24] LABS: INR 0.9 (<1.2); Prothrombin Time 10.1 sec (9.0-12.0)
[2022-01-08 20:31] LABS: ALT 29 U/L (4-49); AST 20 U/L (17-59); African American GFR (CKD) >90 (>60 ml/min/1.73 sqM); Albumin 4.1 g/dL (3.5-5.0); Alkaline Phosphatase 78 U/L (38-126); Anion Gap 12 mmol/L; Blood Urea Nitrogen 19 mg/dL (9-20); Calcium 8.8 mg/dL (8.4-10.2); Carbon Dioxide 23 mmol/L (22-30); Chloride 104 mmol/L (98-107); Glucose 317 mg/dL (74-99); Non-African American GFR(CKD) >90 (>60 ml/min/1.73 sqM); Potassium 3.4 mmol/L (3.5-5.1); Sodium 139 mmol/L (137-145); Total Bilirubin 0.5 mg/dL (0.2-1.3); Total Protein 6.6 g/dL (6.3-8.2)
--- NOTE | 2022-01-08 22:43 | ED ---
SOB HPI - General Chief Complaint: Shortness of Breath Stated Complaint: Difficulty Breathing, Asthma Time Seen by Provider: 01/08/22 21:42 Source: patient, RN notes reviewed Mode of arrival: ambulatory Limitations: no limitations - History of Present Illness Initial Comments: This is a pleasant 41-year-old male who presents emergent department with mai oing shortness of breath and cough which has been going on for about 1 month. Patient has been through 2 rounds of antibiotics and corticosteroids. Patient is a cigarette smoker and has a history of asthma. Patient complaining of increased work of breathing despite being on the second round of prednisone and antibiotics. Patient has had 2 courses of corticosteroids, Augmentin, then Zithromax. patient has been using his inhalers more so at home. No headache, no fever or chills, no changes in vision or hearing, no sore throat or difficulty with speech, no neck pain, no abdominal pain, no nausea or vomiting, no changes in urination or bowel movements, no numbness or tingling, no extremity pain, no skin rashes or lesions. - Related Data Home Medications Medication Instructions Recorded Confirmed Fluticasone Nasal [place] [Flonase 2 sprays EA NOSTRIL DAILY PRN 05/03/15 01/08/22 Nasal [place]] Ibuprofen [Motrin] 800 mg PO Q8H PRN 05/03/15 01/08/22 Cetirizine HCl [Zyrtec] 10 mg PO DAILY 05/26/17 01/08/22 Montelukast [Singulair] 10 mg PO DAILY 05/26/17 01/08/22 atenoloL [Tenormin] 50 mg PO DAILY 01/27/18 01/08/22 Albuterol Inhaler [Ventolin Hfa 2 puff INHALATION RT-QID PRN 01/08/22 01/08/22 Inhaler] Atorvastatin [Lipitor] 80 mg PO DAILY 01/08/22 01/08/22 Baclofen 10 mg PO TID PRN 01/08/22 01/08/22 Dextroamphetamine/Amphetamine 20 mg PO QAM 01/08/22 01/08/22 [Adderall Xr] Fenofibrate,Micronized 134 mg PO DAILY 01/08/22 01/08/22 [Fenofibrate] Fluticasone/Salmeterol [Advair 1 puff INHALATION RT-BID 01/08/22 01/08/22 500-50 Diskus] Magnesium 500 mg PO DAILY 01/08/22 01/08/22 Omeprazole 40 mg PO DAILY 01/08/22 01/08/22 Potassium Chloride [Potassium 10 meq PO DAILY 01/08/22 01/08/22 Chloride ER] glipiZIDE XL [Glucotrol Xl] 10 mg PO DAILY 01/08/22 01/08/22 lisinopriL 40 mg PO DAILY 01/08/22 01/08/22 Allergies Allergy/AdvReac Type Severity Reaction Status Date / Time No Known Allergies Allergy Verified 01/08/22 23:07 Review of Systems ROS Statement: Those systems with pertinent positive or pertinent negative responses have been documented in the HPI. ROS Other: All systems not noted in ROS Statement are negative. Past Medical History Past Medical History: Asthma, Diabetes Mellitus, GERD/Reflux, Hypertension, Osteoarthritis (OA), Pneumonia, Sleep Apnea/CPAP/BIPAP Additional Past Medical History / Comment(s): rectal bleeding(internal hemorrhoids), degenerative disc disease, arthritis, no cpap used History of Any Multi-Drug Resistant Organisms: None Reported Past Surgical History: Cholecystectomy Additional Past Surgical History / Comment(s): EGD/Colonoscopy, pain clinic procedure Past Anesthesia/Blood Transfusion Reactions: Motion Sickness Additional Past Anesthesia/Blood Transfusion Reaction / Comment(s): adopted- family hx unknown Past Psychological History: No Psychological Hx Reported Smoking Status: Current every day smoker Past Alcohol Use History: None Reported Past Drug Use History: None Reported - Past Family History Mother History Unknown: Yes Additional Family Medical History / Comment(s): client states he was adopted Father Family Medical History: Unable to Obtain Additional Family Medical History / Comment(s): client states he was adopted General Exam - General Exam Comments Initial Comments: Increased work of breathing noted. Moderate distress. Limitations: no limitations General appearance: alert, in distress Head exam: Present: atraumatic, normocephalic, normal inspection Eye exam: Present: normal appearance, PERRL, EOMI. Absent: scleral icterus, conjunctival injection, periorbital swelling ENT exam: Present: normal exam, mucous membranes moist, TM's normal bilaterally, normal external ear exam. Absent: normal oropharynx Neck exam: Present: normal inspection, full ROM. Absent: tenderness, meningismus, lymphadenopathy Respiratory exam: Present: wheezes, accessory muscle use. Absent: normal lung sounds bilaterally, respiratory distress, rales, rhonchi, stridor Cardiovascular Exam: Present: normal rhythm, tachycardia, normal heart sounds. Absent: systolic murmur, diastolic murmur, rubs, gallop, clicks GI/Abdominal exam: Present: soft, normal bowel sounds. Absent: distended, tend erness, guarding, rebound, rigid Extremities exam: Present: normal inspection, full ROM, normal capillary refill. Absent: tenderness, pedal edema, joint swelling, calf tenderness Back exam: Present: normal inspection Neurological exam: Present: alert, oriented X3, CN II-XII intact Psychiatric exam: Present: normal affect, normal mood Skin exam: Present: warm, dry, intact, normal color. Absent: rash Course Vital Signs 01/08/22 01/08/22 01/08/22 18:33 21:58 22:08 Temperature 98.0 F Pulse Rate 113 H 99 101 H Respiratory 20 Rate Blood Pressure 177/87 O2 Sat by Pulse 92 L Oximetry 01/08/22 23:09 Temperature 98.0 F Pulse Rate 104 H Respiratory 20 Rate Blood Pressure 162/97 O2 Sat by Pulse 91 L Oximetry - Reevaluation(s) Reevaluation #1: 01/08/22 22:48 Medical record is reviewed Symptoms are minimally improved Patient is informed of results and questions answered Patient in no distress Medical Decision Making - Medical Decision Making Case discussed in detail with Dr. Haskins from [facility]. Patient admitted for observation and pulmonary consultation. Patient presented with outpatient failure for COPD exacerbation. 2 rounds of corticosteroids and antibiotics. Patient presents with increased respiratory distress and hypoxemia. The case was discussed in detail with ED attending physician. Presentation, findings, treatment plan discussed in detail. - Lab Data Result diagrams: 01/08/22 19:56 01/08/22 19:56 Lab Results 01/08/22 01/08/22 01/08/22 Range/Units 19:56 19:56 19:56 WBC 17.3 H (3.8-10.6) k/uL RBC 4.63 (4.30-5.90) m/uL Hgb 15.5 (13.0-17.5) gm/dL Hct 47.0 (39.0-53.0) % MCV 101.6 H (80.0-100.0) fL MCH 33.5 (25.0-35.0) pg MCHC 33.0 (31.0-37.0) g/dL RDW 13.8 (11.5-15.5) % Plt Count 247 (150-450) k/uL MPV 7.6 Neutrophils % 73 % Lymphocytes % 19 % Monocytes % 5 % Eosinophils % 2 % Basophils % 0 % Neutrophils # 12.6 H (1.3-7.7) k/uL Lymphocytes # 3.3 (1.0-4.8) k/uL Monocytes # 0.8 (0-1.0) k/uL Eosinophils # 0.3 (0-0.7) k/uL Basophils # 0.1 (0-0.2) k/uL Macrocytosis Slight PT 10.1 (9.0-12.0) sec INR 0.9 (<1.2) APTT 23.0 (22.0-30.0) sec D-Dimer (<0.60) mg/L FEU Sodium 139 (137-145) mmol/L Potassium 3.4 L (3.5-5.1) mmol/L Chloride 104 (98-107) mmol/L Carbon Dioxide 23 (22-30) mmol/L Anion Gap 12 mmol/L BUN 19 (9-20) mg/dL Creatinine 0.70 (0.66-1.25) mg/dL Est GFR (CKD-EPI)AfAm >90 (>60 ml/min/1.73 sqM) Est GFR (CKD-EPI)NonAf >90 (>60 ml/min/1.73 sqM) Glucose 317 H (74-99) mg/dL Calcium 8.8 (8.4-10.2) mg/dL Magnesium (1.6-2.3) mg/dL Total Bilirubin 0.5 (0.2-1.3) mg/dL AST 20 (17-59) U/L ALT 29 (4-49) U/L Alkaline Phosphatase 78 (38-126) U/L Troponin I (0.000-0.034) ng/mL NT-Pro-B Natriuret Pep pg/mL Total Protein 6.6 (6.3-8.2) g/dL Albumin 4.1 (3.5-5.0) g/dL Coronavirus (PCR) (Not Detectd) 01/08/22 01/08/22 01/08/22 Range/Units 19:56 19:56 21:35 WBC (3.8-10.6) k/uL RBC (4.30-5.90) m/uL Hgb (13.0-17.5) gm/dL Hct (39.0-53.0) % MCV (80.0-100.0) fL MCH (25.0-35.0) pg MCHC (31.0-37.0) g/dL RDW (11.5-15.5) % Plt Count (150-450) k/uL MPV Neutrophils % % Lymphocytes % % Monocytes % % Eosinophils % % Basophils % % Neutrophils # (1.3-7.7) k/uL Lymphocytes # (1.0-4.8) k/uL Monocytes # (0-1.0) k/uL Eosinophils # (0-0.7) k/uL Basophils # (0-0.2) k/uL Macrocytosis PT (9.0-12.0) sec INR (<1.2) APTT (22.0-30.0) sec D-Dimer 0.21 (<0.60) mg/L FEU Sodium (137-145) mmol/L Potassium (3.5-5.1) mmol/L Chloride (98-107) mmol/L Carbon Dioxide (22-30) mmol/L Anion Gap mmol/L BUN (9-20) mg/dL Creatinine (0.66-1.25) mg/dL Est GFR (CKD-EPI)AfAm (>60 ml/min/1.73 sqM) Est GFR (CKD-EPI)NonAf (>60 ml/min/1.73 sqM) Glucose (74-99) mg/dL Calcium (8.4-10.2) mg/dL Magnesium (1.6-2.3) mg/dL Total Bilirubin (0.2-1.3) mg/dL AST (17-59) U/L ALT (4-49) U/L Alkaline Phosphatase (38-126) U/L Troponin I 0.015 (0.000-0.034) ng/mL NT-Pro-B Natriuret Pep pg/mL Total Protein (6.3-8.2) g/dL Albumin (3.5-5.0) g/dL Coronavirus (PCR) Not Detected (Not Detectd) 01/08/22 01/08/22 Range/Units 21:48 21:48 WBC (3.8-10.6) k/uL RBC (4.30-5.90) m/uL Hgb (13.0-17.5) gm/dL Hct (39.0-53.0) % MCV (80.0-100.0) fL MCH (25.0-35.0) pg MCHC (31.0-37.0) g/dL RDW (11.5-15.5) % Plt Count (150-450) k/uL MPV Neutrophils % % Lymphocytes % % Monocytes % % Eosinophils % % Basophils % % Neutrophils # (1.3-7.7) k/uL Lymphocytes # (1.0-4.8) k/uL Monocytes # (0-1.0) k/uL Eosinophils # (0-0.7) k/uL Basophils # (0-0.2) k/uL Macrocytosis PT (9.0-12.0) sec INR (<1.2) APTT (22.0-30.0) sec D-Dimer (<0.60) mg/L FEU Sodium (137-145) mmol/L Potassium (3.5-5.1) mmol/L Chloride (98-107) mmol/L Carbon Dioxide (22-30) mmol/L Anion Gap mmol/L BUN (9-20) mg/dL Creatinine (0.66-1.25) mg/dL Est GFR (CKD-EPI)AfAm (>60 ml/min/1.73 sqM) Est GFR (CKD-EPI)NonAf (>60 ml/min/1.73 sqM) Glucose (74-99) mg/dL Calcium (8.4-10.2) mg/dL Magnesium 1.6 (1.6-2.3) mg/dL Total Bilirubin (0.2-1.3) mg/dL AST (17-59) U/L ALT (4-49) U/L Alkaline Phosphatase (38-126) U/L Troponin I (0.000-0.034) ng/mL NT-Pro-B Natriuret Pep 143 pg/mL Total Protein (6.3-8.2) g/dL Albumin (3.5-5.0) g/dL Coronavirus (PCR) (Not Detectd) - EKG Data EKG Comments: EKG reveals sinus tachycardia with a rate of 108. Nonspecific ST-T wave abnormalities. No evidence of ST elevation. Borderline right axis deviation, normal intervals, mild poor R wave progression. Normal QRS morphology otherwise. Baseline artifact is minimal. Disposition Clinical Impression: Acute exacerbation of COPD with asthma, Acute respiratory failure with hypoxemia, Cigarette smoker Disposition: ADMITTED IP TO THIS HOSP Condition: Fair Referrals: Carlos Henry MD [Primary Care Provider] - 1-2 days Time of Disposition: 22:40 Decision to Admit Reason: Admit from EC Decision Time: 22:40
[2022-01-08] MEDS ORDERED: LEVOFLOXACIN 750 MG TAB PO STA (23:25)
[2022-01-08] MEDS ORDERED: IPRATROPIUM-ALBUTEROL 3 ML NEB INHALATION PRN (23:26)
--- NOTE | 2022-01-09 02:42 | P.HPIM ---
History of Present Illness H&P Date: 01/08/22 Chief Complaint: SOB 41 year old male with asthma patient comes in due to worsening SOB over the past 1 month, he had couple rounds of antibiotics and prednisone with not much improvement in his symptoms , it all started with a head cold, however, he does admit to tobacco smoking. today he comes in as he is not improving, complaining of SOB with minimal activity and having dry cough while feeling congested. he denies fever, chills, hemoptysis . but his chest does feel tight and cant breath with mild exertion. no history of blood clots, no recent travel or hospital stay Review of Systems Pertinent positives as noted in HPI. All other systems were reviewed and are negative Past Medical History Past Medical History: Asthma, Diabetes Mellitus, GERD/Reflux, Hypertension, Osteoarthritis (OA), Pneumonia, Sleep Apnea/CPAP/BIPAP Additional Past Medical History / Comment(s): rectal bleeding(internal hemorrhoids), degenerative disc disease, arthritis, no cpap used History of Any Multi-Drug Resistant Organisms: None Reported Past Surgical History: Cholecystectomy Additional Past Surgical History / Comment(s): EGD/Colonoscopy, pain clinic procedure Past Anesthesia/Blood Transfusion Reactions: Motion Sickness Additional Past Anesthesia/Blood Transfusion Reaction / Comment(s): adopted- family hx unknown Past Psychological History: No Psychological Hx Reported Smoking Status: Current every day smoker Past Alcohol Use History: None Reported Past Drug Use History: None Reported - Past Family History Mother History Unknown: Yes Additional Family Medical History / Comment(s): client states he was adopted Father Family Medical History: Unable to Obtain Additional Family Medical History / Comment(s): client states he was adopted Medications and Allergies Home Medications Medication Instructions Recorded Confirmed Type Fluticasone Nasal [place] [Flonase 2 sprays EA NOSTRIL DAILY PRN 05/03/15 01/08/22 History Nasal [place]] Ibuprofen [Motrin] 800 mg PO Q8H PRN 05/03/15 01/08/22 History Cetirizine HCl [Zyrtec] 10 mg PO DAILY 05/26/17 01/08/22 History Montelukast [Singulair] 10 mg PO DAILY 05/26/17 01/08/22 History atenoloL [Tenormin] 50 mg PO DAILY 01/27/18 01/08/22 History Albuterol Inhaler [Ventolin Hfa 2 puff INHALATION RT-QID PRN 01/08/22 01/08/22 History Inhaler] Atorvastatin [Lipitor] 80 mg PO DAILY 01/08/22 01/08/22 History Baclofen 10 mg PO TID PRN 01/08/22 01/08/22 History Dextroamphetamine/Amphetamine 20 mg PO QAM 01/08/22 01/08/22 History [Adderall Xr] Fenofibrate,Micronized 134 mg PO DAILY 01/08/22 01/08/22 History [Fenofibrate] Fluticasone/Salmeterol [Advair 1 puff INHALATION RT-BID 01/08/22 01/08/22 History 500-50 Diskus] Magnesium 500 mg PO DAILY 01/08/22 01/08/22 History Omeprazole 40 mg PO DAILY 01/08/22 01/08/22 History Potassium Chloride [Potassium 10 meq PO DAILY 01/08/22 01/08/22 History Chloride ER] glipiZIDE XL [Glucotrol Xl] 10 mg PO DAILY 01/08/22 01/08/22 History lisinopriL 40 mg PO DAILY 01/08/22 01/08/22 History Allergies Allergy/AdvReac Type Severity Reaction Status Date / Time No Known Allergies Allergy Verified 01/08/22 23:07 Physical Exam Vitals: Vital Signs Temp Pulse Resp BP Pulse Ox 01/09/22 01:35 84 20 169/96 92 L 01/08/22 23:09 98.0 F 104 H 20 162/97 91 L 01/08/22 22:08 101 H 01/08/22 21:58 99 01/08/22 18:33 98.0 F 113 H 20 177/87 92 L Intake and Output 01/08/22 01/08/22 01/09/22 14:59 22:59 06:59 Other: Weight 149.685 kg Constitutional: No acute distress, conversant, pleasant Eyes: Anicteric sclerae, moist conjunctiva, Pupils equal round reactive to light ENMT: NC/AT Oropharynx clear, no erythema, or exudates Neck: Supple, FROM, no masses, or JVD No carotid bruits No thyromegaly Lungs: Prolonged expiratory phase with wheezing Clear to percussion Normal respiratory effort, no accessory muscle use Cardiovascular: Heart regular in rate and rhythm, No murmurs, gallops, or rubs No peripheral edema Abdominal: Soft Nontender, no guarding, rebound or rigidity Abdomen moving with respiration Normoactive bowel sounds No hepatomegaly, No splenomegaly No palpable mass No abdominal wall hernia noted Skin: Normal temperature, tone, texture, turgor No induration No subcutaneous nodules No rash, lesions No ulcers Extremities: No digital cyanosis No clubbing Pedal pulses intact and symmetrical Radial pulses intact and symmetrical No calf tenderness Psychiatric: Alert and oriented to person, place and time Appropriate affect fair judgement Neuro Muscles Strength 5/5 in all 4 extremities Sensation to light touch grossly present throughout Cranial nerves II-XII grossly intact No focal sensory deficits Lymphatics: no palpable cervical or supraclavicular , or inguinal lymph nodes Results CBC & Chem 7: 01/08/22 19:56 01/08/22 19:56 Labs: Abnormal Lab Results - Last 24 Hours (Table) 01/08/22 01/08/22 Range/Units 19:56 19:56 WBC 17.3 H (3.8-10.6) k/uL MCV 101.6 H (80.0-100.0) fL Neutrophils # 12.6 H (1.3-7.7) k/uL Potassium 3.4 L (3.5-5.1) mmol/L Glucose 317 H (74-99) mg/dL Assessment and Plan Assessment: Acute asthma/COPD exacerbation Patient counseled to quit smoking Supportive care Inhalers and DuoNeb's as needed Initiate on IV systemic steroids, Doxycycline Supplemental oxygen as needed Singulair Zyrtec Monitor vital signs Chronic conditions Hypertension, slightly elevated, continue home medications Diabetes mellitus continue with insulin sliding scale DVT prophylaxis heparin subcu 3 times a day Full code Anticipated length of stay more than 2 midnights
[2022-01-09] MEDS ORDERED: ALBUTEROL HFA INHALER INHALATION PRN (02:43)
[2022-01-09] MEDS ORDERED: BACLOFEN 10 MG TAB PO PRN (02:43)
[2022-01-09] MEDS ORDERED: FLUTICASONE 50MCG/SPRAY NASAL 16GM EA NOSTRIL PRN (02:43)
[2022-01-09] MEDS: methylPREDNISolone SOD SUCCI 125 MG/2 ML VIAL IV SCH ×2 (06:45→13:07)
[2022-01-09] MEDS ORDERED: PANTOPRAZOLE 40 MG TABLET PO SCH (07:30)
[2022-01-09 07:34] VITALS: BP 173/99; TEMP 98.3
[2022-01-09] MEDS: IPRATROPIUM-ALBUTEROL 3 ML NEB INHALATION SCH ×2 (07:39→11:34)
[2022-01-09] MEDS ORDERED: ALBUTEROL NEBULIZED 2.5 MG/3 ML INHALATION SCH (08:00)
[2022-01-09] MEDS ORDERED: BUDESONIDE 0.5 MG/2 ML NEBU INHALATION SCH (08:00)
[2022-01-09] MEDS ORDERED: SYMBICORT 160-4.5 MCG INHALER INHALATION SCH (08:00)
[2022-01-09 08:07] LABS: Glucose,Whole Blood 359 mg/dL (75-99)
[2022-01-09] MEDS ORDERED: atenoloL 50 MG TAB PO SCH (09:00)
[2022-01-09] MEDS ORDERED: ATORVASTATIN 80 MG TAB PO SCH (09:00)
[2022-01-09] MEDS ORDERED: LORATADINE 10 MG TAB PO SCH (09:00)
[2022-01-09] MEDS ORDERED: DOXYCYCLINE 100 MG CAP PO SCH (09:00)
[2022-01-09] MEDS ORDERED: lisinopriL 20 MG TAB PO SCH (09:00)
[2022-01-09] MEDS: ENOXAPARIN 40 MG/0.4 ML SYRINGE SQ SCH ×2 (09:11)
[2022-01-09] MEDS: INSULIN ASPART (NovoLOG) 100 UNIT/ML VIAL SQ SCH ×2 (09:11→13:07)
--- NOTE | 2022-01-09 10:38 | P.CNPUL ---
History of Present Illness Consult date: 01/09/22 Requesting physician: Ashwin Haskins Reason for consult: dyspnea, COPD Chief complaint: Shortness of breath, cough, congestion History of present illness: This is a very pleasant 41-year-old male patient who follows with Dr. Henry as his primary care provider. He has a history of obesity, diabetes mellitus, hypertension, chronic back pain, obstructive sleep apnea with an AHI of 16.2 but was unable to get CPAP per his insurance back in 2013. He also has a 26 year pack per day smoking history and has chronic obstructive pulmonary disease with an FEV1 value 45% of predicted. He has been maintained on Advair, Spiriva, albuterol in the outpatient setting. He presented here to the emergency room yesterday after a one-month history of increasing shortness of breath, cough, congestion, sinus congestion and had been treated with 2 rounds of antibiotics and steroids without much improvement. Chest x-ray shows no acute cardiopulmonary process. White count 17.3. Hemoglobin 15.5. D-dimer 0.21. Sodium 139. Potassium 3.4. Bicarb 23. Creatinine 0.70. Glucose 317. AST 20. ALT 29. ProBNP 143. Dill virus by PCR not detected. The patient is not vaccinated. He is seen today in consultation in the emergency department. He is currently sitting up in a stretcher. Awake and alert in no acute distress. She is currently maintaining O2 saturations at 91% on 2 L/m per nasal cannula. He does have some bronchospasm and wheezing. No fever or chills. He's been initiated and DuoNeb inhalations, Symbicort, IV Solu-Medrol and Claritin. Empiric antibiotics in the form of doxycycline. Lovenox for DVT prophylaxis. Review of Systems REVIEW OF SYSTEMS: CONSTITUTIONAL: Denies any recent significant weight loss or weight gain. EYES: Denies change in vision. EARS, NOSE, MOUTH, THROAT: Denies headaches, denies sore throat. CARDIOVASCULAR: Denies chest pain, palpitations or syncopal episodes. RESPIRATORY: Positive for shortness of breath, cough, congestion no hemoptysis. GASTROINTESTINAL: Denies change in appetite, denies abdominal pain GENITOURINARY: Denies hematuria, denies infections. MUSKULOSKELETAL: Denies pain, denies swelling. INTEGUMENTARY: Denies rash, denies eczema. NEUROLOGICAL: Denies recent memory loss, no recent seizure activity. PSYCHIATRIC: Denies anxiety, denies depression. HEMATOLOGIC/LYMPHATIC: Denies anemia, denies enlarged lymph nodes. Past Medical History Past Medical History: Asthma, COPD, Diabetes Mellitus, GERD/Reflux, Hyperlipidemia, Hypertension, Osteoarthritis (OA), Pneumonia, Sleep Apnea/CPAP/BIPAP Additional Past Medical History / Comment(s): NIDDM type II, neuropathy bilateral legs but pt unsure if d/t diabetes or his back problems, chronic back pain, bronchitis, ESTRELLA without device, covid 08/2021, rectal bleed dt hemorrhoids, sinus issues, bilateral knees will occasionally "give out"/especially L knee. History of Any Multi-Drug Resistant Organisms: None Reported Past Surgical History: Cholecystectomy Additional Past Surgical History / Comment(s): EGD/Colonoscopy, pain clinic procedure Past Anesthesia/Blood Transfusion Reactions: Motion Sickness Additional Past Anesthesia/Blood Transfusion Reaction / Comment(s): adopted- family hx unknown Smoking Status: Current every day smoker - Past Family History Mother History Unknown: Yes Family Medical History: Unable to Obtain Additional Family Medical History / Comment(s): client states he was adopted Father Family Medical History: Unable to Obtain Additional Family Medical History / Comment(s): client states he was adopted Medications and Allergies Home Medications Medication Instructions Recorded Confirmed Type Fluticasone Nasal [place] [Flonase 2 sprays EA NOSTRIL DAILY PRN 05/03/15 01/08/22 History Nasal [place]] Ibuprofen [Motrin] 800 mg PO Q8H PRN 05/03/15 01/08/22 History Cetirizine HCl [Zyrtec] 10 mg PO DAILY 05/26/17 01/08/22 History Montelukast [Singulair] 10 mg PO DAILY 05/26/17 01/08/22 History atenoloL [Tenormin] 50 mg PO DAILY 01/27/18 01/08/22 History Albuterol Inhaler [Ventolin Hfa 2 puff INHALATION RT-QID PRN 01/08/22 01/08/22 History Inhaler] Atorvastatin [Lipitor] 80 mg PO DAILY 01/08/22 01/08/22 History Baclofen 10 mg PO TID PRN 01/08/22 01/08/22 History Dextroamphetamine/Amphetamine 20 mg PO QAM 01/08/22 01/08/22 History [Adderall Xr] Fenofibrate,Micronized 134 mg PO DAILY 01/08/22 01/08/22 History [Fenofibrate] Fluticasone/Salmeterol [Advair 1 puff INHALATION RT-BID 01/08/22 01/08/22 History 500-50 Diskus] Magnesium 500 mg PO DAILY 01/08/22 01/08/22 History Omeprazole 40 mg PO DAILY 01/08/22 01/08/22 History Potassium Chloride [Potassium 10 meq PO DAILY 01/08/22 01/08/22 History Chloride ER] glipiZIDE XL [Glucotrol Xl] 10 mg PO DAILY 01/08/22 01/08/22 History lisinopriL 40 mg PO DAILY 01/08/22 01/08/22 History Allergies Allergy/AdvReac Type Severity Reaction Status Date / Time No Known Allergies Allergy Verified 01/08/22 23:07 Physical Exam Vitals: Vital Signs Temp Pulse Resp BP Pulse Ox 01/09/22 08:03 95 01/09/22 07:50 86 01/09/22 07:43 75 01/09/22 07:33 98.3 F 88 19 173/99 97 01/09/22 01:35 84 20 169/96 92 L 01/08/22 23:09 98.0 F 104 H 20 162/97 91 L 01/08/22 22:08 101 H 01/08/22 21:58 99 01/08/22 18:33 98.0 F 113 H 20 177/87 92 L Intake and Output 01/08/22 01/09/22 01/09/22 22:59 06:59 14:59 Other: Weight 149.685 kg 149.685 kg GENERAL EXAM: Alert, obese, pleasant 41-year-old male patient, on 2 L nasal cannula, comfortable in no apparent distress. HEAD: Normocephalic. EYES: Normal reaction of pupils, equal size. NOSE: Clear with pink turbinates. THROAT: No erythema or exudates. NECK: No masses, no JVD. CHEST: No chest wall deformity. LUNGS: Equal air entry with bilateral end wheeze, diminished. CVS: S1 and S2 normal with no audible murmur, regular rhythm. ABDOMEN: No hepatosplenomegaly, normal bowel sounds, no guarding or rigidity. SPINE: No scoliosis or deformity SKIN: No rashes CENTRAL NERVOUS SYSTEM: No focal deficits, tone is normal in all 4 extremities. EXTREMITIES: There is no peripheral edema. No clubbing, no cyanosis. Peripheral pulses are intact. Results - Laboratory Findings CBC and BMP: 01/08/22 19:56 01/08/22 19:56 PT/INR, D-dimer PT 10.1 sec (9.0-12.0) 01/08/22 19:56 INR 0.9 (<1.2) 01/08/22 19:56 D-Dimer 0.21 mg/L FEU (<0.60) 01/08/22 19:56 Abnormal lab findings: Abnormal Labs 01/08/22 01/08/22 01/09/22 19:56 19:56 08:05 WBC 17.3 H MCV 101.6 H Neutrophils # 12.6 H Potassium 3.4 L Glucose 317 H POC Glucose (mg/dL) 359 H - Diagnostic Findings Chest x-ray: image reviewed (No acute cardiopulmonary process) Assessment and Plan Assessment: 1 Acute hypoxemic respiratory failure secondary to acute exacerbation of chronic obstructive pulmonary disease. No evidence of pneumonia 2 Chronic obstructive pulmonary disease with an FEV1 value of 45% of predicted. Maintained on Advair, Spiriva, albuterol in the outpatient setting 3 Chronic and ongoing tobacco dependence of greater than 25 years 4 Morbid obesity with a BMI of 46 5 Diabetes mellitus 6 Hypertension 7 Obstructive sleep apnea with an AHI of 16.2 and 2014, untreated due to insurance Plan: The patient was seen and evaluated Chest x-ray and labs reviewed Continue bronchodilators, IV Solu-Medrol Continue empiric antibiotics Check an alpha-1 antitrypsin Educated regarding the importance of smoking cessation NicoDerm patch will be offered Would benefit from reevaluation regarding his ESTRELLA Probable discharge in the a.m. We will continue to follow and make further recommendations based on his clinical status I have personally seen and examined the patient, performed the documentation and the assessment and plan as written. Number of minutes spent on the visit: 20.
[2022-01-09] MEDS ORDERED: NICOTINE 14MG/24HR PATCH TRANSDERM SCH (11:00)
[2022-01-09 11:19] VITALS: RESP 18
[2022-01-09 11:51] VITALS: PULSE 86
[2022-01-09 12:43] LABS: Glucose,Whole Blood 276 mg/dL (75-99)
--- NOTE | 2022-01-09 13:01 | P.DS ---
Providers Date of admission: 01/08/22 23:18 Expected date of discharge: 01/09/22 Attending physician: Ashwin Haskins MD Consults: 01/08/22 23:26 Consult Physician Urgent Consulting Provider: Claudette White Consult Reason/Comments: COPD Do you want consulting provider notified?: Yes, Notify in am Primary care physician: Carlos Henry Hospital Course: Discharge Diagnosis: Acute COPD exacerbation Obstructive sleep apnea Hypertension Hyperlipidemia Diabetes mellitus GERD Nicotine dependence Hospital Course: Patient is a very pleasant 41-year-old male with a past medical history of asthma/COPD, obstructive sleep apnea, hypertension, hyperlipidemia, diabetes mellitus, GERD, and nicotine dependence. He presented to the emergency department with a chief complaint of shortness of breath. Patient reported this has been progressively worsening over the past month. A chest x-ray was completed negative for acute cardiopulmonary process. Patient was found to have leukocytosis with WBC count of 17.3 with alpha-1 antitrypsin of 96.5. Troponin negative at less than 0.012. EKG was completed revealing sinus tachycardia at 108 bpm with no noted T-wave or ST abnormalities. Patient was admitted under our services for COPD exacerbation with consultation to pulmonary. Patient st arted on IV antibiotics, steroids, and nebulizer treatments. Patient weaned back off of oxygen and saturating at 95% with room air and upon ambulation in the room. Patient requesting discharge at this time, notified pulmonary and recommending patient follow-up in their office next week. Patient educated on the importance of smoking cessation and risks associated with continued use. Patient discharged home with Chantix starter pack for assistance in smoking cessation, duonebs, prednisone, and doxycycline. Patient to follow-up with his PCP and pulmonology. Physical examination: Patient seen and examined at bedside. Patient reports feeling significantly better than he felt upon arrival to facility. Patient denies having any headache, lightheadedness, dizziness, chest pain, palpitations, or experiencing any numbness/tingling/weakness in his extremities. Patient reports shortness of breath has improved. Patient medically stable for discharge home. Vital signs reviewed and stable. General: Nontoxic, no distress and appears stated age. Derm: Skin warm and dry, normal coloration for ethnicity. Head: Atraumatic, normocephalic and symmetric. Eyes: EOMs intact, no lid lag, and anicteric sclera Mouth: no lip lesions, mucus membranes moist Cardiovascular: regular rate and rhythm with normal S1S2, no murmur, positive posterior tibial pulses bilaterally, and cap refill < 2 seconds. Lungs: Respirations even, regular, and unlabored on room air. Lungs diminished with diffuse expiratory wheezes bilaterally. no rhonchi, no rales, no crackles, and no accessory muscle usage. Abdominal: soft, nontender to palpation, no guarding, no appreciable organomegaly Ext: ROM intact. No gross muscle atrophy, no edema, no contractures Neuro: Speech clear, face symmetrical and CN II-XII grossly intact with no noted focal neuro deficits Psych: Alert and oriented to person, place, time, and situation. Appropriate and pleasant affect. A total of 35 minutes of time were spent preparing this complex discharge summary. Virgil Zhu NP rendered care for this patient independently, reviewed the findings and plan as documented in the note above. I did not physically speak with or examine the patient on this date. Patient Condition at Discharge: Stable Plan - Discharge Summary Discharge Rx Participant: No New Discharge Prescriptions: New Varenicline [Chantix Starter Pack] 0.5 mg PO DIRECTED #53 tab Ipratropium-Albuterol Nebulize [Duoneb 0.5 mg-3 mg/3 ml Soln] 3 ml INHALATION RT-QID #360 ml Doxycycline [Vibramycin] 100 mg PO BID 5 Days #10 cap predniSONE 50 mg PO DAILY 5 Days #5 tab Continue Ibuprofen [Motrin] 800 mg PO Q8H PRN PRN Reason: Pain Fluticasone Nasal [place] [Flonase Nasal [place]] 2 sprays EA NOSTRIL DAILY PRN PRN Reason: Allergy Symptoms Montelukast [Singulair] 10 mg PO DAILY Cetirizine HCl [Zyrtec] 10 mg PO DAILY atenoloL [Tenormin] 50 mg PO DAILY Fenofibrate,Micronized [Fenofibrate] 134 mg PO DAILY lisinopriL 40 mg PO DAILY Magnesium 500 mg PO DAILY Omeprazole 40 mg PO DAILY Albuterol Inhaler [Ventolin Hfa Inhaler] 2 puff INHALATION RT-QID PRN #1 each PRN Reason: Shortness Of Breath Atorvastatin [Lipitor] 80 mg PO DAILY Baclofen 10 mg PO TID PRN PRN Reason: Pain Dextroamphetamine/Amphetamine [Adderall Xr] 20 mg PO QAM Fluticasone/Salmeterol [Advair 500-50 Diskus] 1 puff INHALATION RT-BID glipiZIDE XL [Glucotrol XL] 10 mg PO DAILY Potassium Chloride [Potassium Chloride ER] 10 meq PO DAILY Discharge Medication List Fluticasone Nasal [place] [Flonase Nasal [place]] 2 sprays EA NOSTRIL DAILY PRN 05/03/15 [History] Ibuprofen [Motrin] 800 mg PO Q8H PRN 05/03/15 [History] Cetirizine HCl [Zyrtec] 10 mg PO DAILY 05/26/17 [History] Montelukast [Singulair] 10 mg PO DAILY 05/26/17 [History] atenoloL [Tenormin] 50 mg PO DAILY 01/27/18 [History] Atorvastatin [Lipitor] 80 mg PO DAILY 01/08/22 [History] Baclofen 10 mg PO TID PRN 01/08/22 [History] Dextroamphetamine/Amphetamine [Adderall Xr] 20 mg PO QAM 01/08/22 [History] Fenofibrate,Micronized [Fenofibrate] 134 mg PO DAILY 01/08/22 [History] Fluticasone/Salmeterol [Advair 500-50 Diskus] 1 puff INHALATION RT-BID 01/08/22 [History] Magnesium 500 mg PO DAILY 01/08/22 [History] Omeprazole 40 mg PO DAILY 01/08/22 [History] Potassium Chloride [Potassium Chloride ER] 10 meq PO DAILY 01/08/22 [History] glipiZIDE XL [Glucotrol XL] 10 mg PO DAILY 01/08/22 [History] lisinopriL 40 mg PO DAILY 01/08/22 [History] Albuterol Inhaler [Ventolin Hfa Inhaler] 2 puff INHALATION RT-QID PRN #1 each 01/09/22 [Rx] Doxycycline [Vibramycin] 100 mg PO BID 5 Days #10 cap 01/09/22 [Rx] Ipratropium-Albuterol Nebulize [Duoneb 0.5 mg-3 mg/3 ml Soln] 3 ml INHALATION RT-QID #360 ml 01/09/22 [Rx] Varenicline [Chantix Starter Pack] 0.5 mg PO DIRECTED #53 tab 01/09/22 [Rx] predniSONE 50 mg PO DAILY 5 Days #5 tab 01/09/22 [Rx] Follow up Appointment(s)/Referral(s): Carlos Henry MD [Primary Care Provider] - 1-2 days Nitesh Marroquin MD [STAFF PHYSICIAN] - 1 Week Patient Instructions/Handouts: How to Stop Smoking (DC), COPD (Chronic Obstructive Pulmonary Disease) (DC), Return to Work Instructions (DC) Activity/Diet/Wound Care/Special Instructions: Activity: As tolerated. Take breaks as needed. Diet: Heart healthy and carb consistent diet. Avoid salts, or foods with hidden salts such as canned or boxed foods and frozen dinners. Extra salt makes your heart work harder and traps the fluid in your body for longer. Special Instructions: Take all of your medications as directed and remember to keep all of your doctor's appointments and follow-up as needed. Thank you for allowing us to participate in your care, it was truly a pleasure having you for our patient!!! Good luck to you on your journey to quitting smoking, it may be a tough time, but definitely worth the effort and you totally got this!!!!! PATIENT STATES HE WOULD LIKE AN INFLUENZA VACCINE PRIOR TO DISCHARGE. Discharge/Stand Alone Forms: Work/School Release Discharge Disposition: HOME SELF-CARE
[2022-01-09] MEDS ORDERED: MONTELUKAST 10 MG TAB PO SCH (21:00)
[2022-01-09] MEDS ORDERED: LEVOFLOXACIN 500 MG TAB PO SCH (21:00)
== END 2022-01-09 15:15 | disposition home or self-care (01) ==
LOC: EC 18:13 → 6NMEDSUR 23:18
PROVIDERS: ADMIT Internal Medicine; ATTEND Internal Medicine
DX: J44.1 Chronic obstructive pulmonary disease with (acute) exacerbation (principal); J45.901 Unspecified asthma with (acute) exacerbation; G47.33 Obstructive sleep apnea (adult) (pediatric); I10 Essential (primary) hypertension; E78.5 Hyperlipidemia, unspecified; J96.01 Acute respiratory failure with hypoxia; E11.41 Type 2 diabetes mellitus with diabetic mononeuropathy; G57.93 Unspecified mononeuropathy of bilateral lower limbs; K21.9 Gastro-esophageal reflux disease without esophagitis; F17.210 Nicotine dependence, cigarettes, uncomplicated; D72.829 Elevated white blood cell count, unspecified; R00.0 Tachycardia, unspecified; M19.90 Unspecified osteoarthritis, unspecified site; K64.8 Other hemorrhoids; G89.29 Other chronic pain; M54.9 Dorsalgia, unspecified; E66.01 Morbid (severe) obesity due to excess calories; Z68.42 Body mass index [BMI] 45.0-49.9, adult; Z20.822 Contact with and (suspected) exposure to COVID-19; Z86.16 Personal history of COVID-19; Z87.01 Personal history of pneumonia (recurrent); Z90.49 Acquired absence of other specified parts of digestive tract; Z79.899 Other long term (current) drug therapy; Z79.84 Long term (current) use of oral hypoglycemic drugs; Z71.6 Tobacco abuse counseling; Z71.9 Counseling, unspecified
CPT/HCPCS: 96376; 96372; 96374; 99285; 36415; 94640 ×3; 93005; 85379; 83880; 80053; 83735; 84484; 85025; 85610; 85730; 82103; 87635; 71046; G0378 ×2; J2930; J1650

== ENCOUNTER → 2022-02-19 | Outpatient (CLI) | payer OTHER ==
[~2022-02-19] MED LIST: REGADENOSON 0.4 MG/5 ML SYRINGE IV PRN
--- NOTE | 2022-02-19 12:12 | CA ---
Lexiscan Nuclear Stress Test Report Name: Kvng Hua Exam Date: 02/19/2022 11:07 Exam Location: [place] Stress Ht (in): 71 Wt (lb): 330 BSA: 2.61 Ordering Phys: Carlos Henry MD Referring Phys: Aurea Gan Technologist: Nguyễn Rodas Age: 41 Gender: M : 1980 Procedure CPT: Indications: R06.02 SOB ICD-10 Codes: Patient History: ABNORMAL EKG/SHORTNESS OF BREATH Medications: SEE LIST Meds past 24 hrs: Pretest Chest Pain: STRESS TEST Lexiscan Protocol Exercise Duration (min:sec): 02:[address] Depressions (mm): Angina Score: Kirkpatrick Score: Resting HR (bpm): 67 Peak HR (bpm): 87 Resting BP (mmHg): 168 / 88 Peak BP (mmHg): 186 / 95 MPHR: 180 Target HR: 153 % MPHR: 48 METS: 1.0 Total Dose: Peak Dose: Atropine: Double Product: 83761 BP Response: Stress Termination: Stress Symptoms: NO SYMPTOMS Stress Summary: ECG ANALYSIS Resting ECG: Stress ECG: CONCLUSIONS Baseline heart rate 66 beats a minute, Baseline blood pressure 160-88 mmHg Baseline 12-lead EKG shows normal sinus rhythm with flattened ST segments in the lateral precordial leads and high lateral leads Patient received Lexiscan infusion per protocol No signal changes heart rate blood pressure No symptoms noted No evidence for ischemia Nuclear portion will be reported separately Dr. Emeka Gaspar MD (Electronically Signed) Final Date: 19 Feb 2022 12:11
--- NOTE | 2022-02-19 12:19 | NM ---
EXAMINATION TYPE: NM stress lexiscan cardiolite DATE OF EXAM: 02/19/2022 COMPARISON: NONE HISTORY: Chest TECHNIQUE: After the intravenous administration of 9.6 mCi Tc 99m Sestamibi - Cardiolite resting SPE CT images acquired 45 minutes post injection. The patient received 0.4mg Lexiscan, 24.1 mCi Tc 99m Sestamibi - Stress images obtained [address] injection FINDINGS: Review of stress and rest SPECT images demonstrates findings suspicious for a small area of stress-in duced sequential 16 6 cm for stones for short 16 point there is a small areas suspicious for infarct involving the inferior wall. Gated analysis shows normal wall motion and with an estimated left vent ricular ejection fraction of 58%. Report called to referring clinician 12:12 PM 02/19/2022. IMPRESSION: 1. There is a small fixed defect involving the inferior wall correlate for prior ischemia. Could not exclude a tiny area of stress-induced reversible ischemia involving the inferior wall correlate clini molly. 2. Ejection fraction of 58%.
== END | disposition home or self-care (01) ==
LOC: RADNMMAIN 09:09
PROVIDERS: ATTEND Pediatrics
DX: R06.02 Shortness of breath (principal); R94.31 Abnormal electrocardiogram [ECG] [EKG]
CPT/HCPCS: 93017; 78452; A9500; J2785

== ENCOUNTER → 2022-06-20 | Outpatient (CLI) | payer OTHER ==
--- NOTE | 2022-06-20 12:42 | XR ---
EXAMINATION TYPE: XR knee complete bilateral DATE OF EXAM: 06/20/2022 COMPARISON: NONE HISTORY: pain TECHNIQUE: Three views are submitted. FINDINGS: Joint spaces are preserved. Osseous structures are intact. No acute fracture seen. Well-corticated density in the infrapatellar region may be related to prior avulsion fracture of the left tibial tub ercle. There is a spur along the upper margin of the right patella. IMPRESSION: 1. No acute fracture or dislocation. 2. Small spur along the upper margin of the right patella. 2. There is a well-corticated ossific density in the region of the tibial tubercle on the left which could be related to a prior remote [place]atter disease or avulsion fracture
== END | disposition home or self-care (01) ==
LOC: RADXRMAIN 12:10
PROVIDERS: ATTEND Physician Assistant
DX: M25.761 Osteophyte, right knee (principal)

== ENCOUNTER → 2022-09-09 | Outpatient (CLI) | payer OTHER ==
--- NOTE | 2022-09-09 13:11 | XR ---
EXAMINATION TYPE: XR chest 2V DATE OF EXAM: 09/09/2022 COMPARISON: 01/08/2022 TECHNIQUE: PA and lateral views submitted. HISTORY: Shortness of breath FINDINGS: The lungs are clear and there is no pneumothorax, pleural effusion, or focal pneumonia. Biapical pl eural thickening. Heart size normal with no overt failure. Hyperinflation suggests COPD. Hypertrophic and degenerative change of the spine. No overt failure. IMPRESSION: 1. No acute process. 2. COPD
== END | disposition home or self-care (01) ==
LOC: RADXRMAIN 12:55
PROVIDERS: ATTEND Physician Assistant
DX: J44.1 Chronic obstructive pulmonary disease with (acute) exacerbation (principal)
CPT/HCPCS: 71046

== ENCOUNTER → 2023-01-12 | Outpatient (CLI) | payer OTHER ==
--- NOTE | 2023-01-12 13:15 | XR ---
EXAMINATION TYPE: XR chest 2V DATE OF EXAM: 01/12/2023 COMPARISON: NONE TECHNIQUE: PA and lateral views submitted. HISTORY: Cough FINDINGS: The lungs are clear and there is no pneumothorax, pleural effusion, or focal pneumonia. Heart size normal and no overt failure. Osseous structures demonstrate hypertrophic and degenerative changes of the spine. Hyperinflation. Subsegmental linear changes involving both lungs. Biapical pleural thicken ing. IMPRESSION: 1. No acute process.
== END | disposition home or self-care (01) ==
LOC: RADXRMAIN 12:45
PROVIDERS: ATTEND Physician Assistant
DX: K92.0 Hematemesis (principal)
CPT/HCPCS: 71046

== ENCOUNTER → 2023-01-16 | Outpatient (CLI) | payer OTHER ==
--- NOTE | 2023-01-16 20:11 | CT ---
EXAMINATION TYPE: CT facial bones wo con DATE OF EXAM: 01/16/2023 COMPARISON: Sinus CT September 09, 2014 HISTORY: Acute sinusitis per order. Symptoms of headache and chronic sinusitis problems for [address] DLP: 641.60 mGycm. Automated Exposure Control for Dose Reduction was Utilized. TECHNIQUE: CT scan of the facial bones is performed without contrast. FINDINGS: Small mucous retention cyst or polyp in the inferior left maxillary sinus is redemonstrated . Mild to moderate mucosal thickening in the inferior right maxillary sinus is redemonstrated with so me new patchy fluid is now seen. Remainder of the paranasal sinuses are clear without suspicious opac ification or air-fluid levels. Ostiomeatal complexes patent bilaterally on coronal image 19. Nasal se ptum remains midline. Visualized brain parenchyma is unremarkable. The globes are intact bilaterally. Mastoid air cells marlene w no suspicious opacification. Patchy soft tissue density or cerumen is now seen in the deep left ext ra auditory canal. IMPRESSION: Mild acute inferior right maxillary sinusitis on background mild bilateral chronic maxill natalie sinusitis.
== END | disposition home or self-care (01) ==
LOC: RADCTMAIN 17:55
PROVIDERS: ATTEND Pediatrics
DX: J32.0 Chronic maxillary sinusitis (principal); J01.00 Acute maxillary sinusitis, unspecified
CPT/HCPCS: 70486

== ENCOUNTER 2025-01-08 21:21 | Inpatient (IN) | payer OTHER ==
[2025-01-08] MEDS: ALBUTEROL NEBULIZED 2.5 MG/3 ML INHALATION STA (21:30)
[2025-01-08] MEDS: MAGNESIUM SULFATE-D5W PMX 1 GM in DEXTROSE/WATER 1 100ML.BAG IVPB SCH (21:30)
[2025-01-08] MEDS: IPRATROPIUM 0.5 MG/2.5 ML NEBU INHALATION STA (21:30)
[2025-01-08] MEDS: DEXAMETHASONE SOD PHOSPHATE 10 MG/ML 1 ML VIAL IV STA (21:31)
--- NOTE | 2025-01-08 21:33 | ED ---
General Adult HPI - General Chief complaint: Shortness of Breath Stated complaint: Respiratory Distress Time Seen by Provider: 01/08/25 21:28 Source: patient, EMS Mode of arrival: EMS - History of Present Illness Initial comments: Dictation was produced using [employer] dictation software. please excuse any grammatical, word or spelling errors. Chief Complaint: 44-year-old male with multiple comorbidities presents to the emergency department with dyspnea History of Present Illness: Patient is a 44-year-old male with significant comorbidities including COPD diabetes dyslipidemia hypertension brought in by EMS for severe dyspnea. Patient reports story due to clinical status. Patient extremely dyspneic at the bedside. EMS provided patient with Solu-Medrol CPAP and 2 breathing treatments. Patient denies any chest pain. Unable to obtain ROS secondary to clinical status - Related Data Home Medications Medication Instructions Recorded Confirmed Fluticasone Nasal [place] [Flonase 2 sprays EA NOSTRIL DAILY PRN 05/03/15 01/08/22 Nasal [place]] Ibuprofen [Motrin] 800 mg PO Q8H PRN 05/03/15 01/08/22 Cetirizine HCl [Zyrtec] 10 mg PO DAILY 05/26/17 01/08/22 Montelukast [Singulair] 10 mg PO DAILY 05/26/17 01/08/22 atenoloL [Tenormin] 50 mg PO DAILY 01/27/18 01/08/22 Atorvastatin [Lipitor] 80 mg PO DAILY 01/08/22 01/08/22 Baclofen 10 mg PO TID PRN 01/08/22 01/08/22 Dextroamphetamine/Amphetamine 20 mg PO QAM 01/08/22 01/08/22 [Adderall Xr] Fenofibrate,Micronized 134 mg PO DAILY 01/08/22 01/08/22 [Fenofibrate] Fluticasone Propion/Salmeterol 1 puff INHALATION RT-BID 01/08/22 01/08/22 [Advair 500-50 Diskus] Magnesium 500 mg PO DAILY 01/08/22 01/08/22 Omeprazole 40 mg PO DAILY 01/08/22 01/08/22 Potassium Chloride [Klor-Con M10] 10 meq PO DAILY 01/08/22 01/08/22 glipiZIDE XL [Glucotrol XL] 10 mg PO DAILY 01/08/22 01/08/22 lisinopriL 40 mg PO DAILY 01/08/22 01/08/22 Previous Rx's Medication Instructions Recorded Albuterol Inhaler [Ventolin Hfa 2 puff INHALATION RT-QID PRN #1 01/09/22 Inhaler] each Doxycycline [Vibramycin] 100 mg PO BID 5 Days #10 cap 01/09/22 Ipratropium-Albuterol Nebulize 3 ml INHALATION RT-QID #360 ml 01/09/22 [Duoneb 0.5 mg-3 mg/3 ml Soln] Varenicline [Chantix Starter Pack] 0.5 mg PO DIRECTED #53 tab 01/09/22 predniSONE 50 mg PO DAILY 5 Days #5 tab 01/09/22 Allergies Allergy/AdvReac Type Severity Reaction Status Date / Time No Known Allergies Allergy Verified 07/19/23 17:45 Review of Systems ROS Statement: Those systems with pertinent positive or pertinent negative responses have been documented in the HPI. ROS Other: All systems not noted in ROS Statement are negative. Past Medical History Past Medical History: Asthma, COPD, Diabetes Mellitus, GERD/Reflux, Hyperlipidemia, Hypertension, Osteoarthritis (OA), Pneumonia, Sleep Apnea/CPAP/BIPAP Additional Past Medical History / Comment(s): NIDDM type II, neuropathy b ilateral legs but pt unsure if d/t diabetes or his back problems, chronic back pain, bronchitis, ESTRELLA without device, covid 08/2021, rectal bleed dt hemorrhoids, sinus issues, bilateral knees will occasionally "give out"/especially L knee. History of Any Multi-Drug Resistant Organisms: None Reported Past Surgical History: Cholecystectomy Additional Past Surgical History / Comment(s): EGD/Colonoscopy, pain clinic procedure Past Anesthesia/Blood Transfusion Reactions: Motion Sickness Additional Past Anesthesia/Blood Transfusion Reaction / Comment(s): adopted- family hx unknown Past Psychological History: ADD/ADHD, Depression Smoking Status: Current every day smoker Past Alcohol Use History: None Reported Past Drug Use History: None Reported - Past Family History Mother History Unknown: Yes Family Medical History: Unable to Obtain Additional Family Medical History / Comment(s): client states he was adopted Father Family Medical History: Unable to Obtain Additional Family Medical History / Comment(s): client states he was adopted General Exam - General Exam Comments Initial Comments: PHYSICAL EXAM: General Impression: Diaphoretic, dyspneic, tripoding HEENT: Normocephalic atraumatic, extra-ocular movements intact, pupils equal and reactive to light bilaterally, mucous membranes moist. Cardiovascular: Heart regular rate and rhythm Chest: poor air exchange Abdomen: abdomen soft, non-tender, non-distended, no organomegaly Musculoskeletal: Pulses present and equal in all extremities, no peripheral edema Motor: no focal deficits noted Neurological: CN II-XII grossly intact, no focal motor or sensory deficits noted Skin: Intact with no visualized rashes Psych: Anxious Course Vital Signs 01/08/25 01/08/25 01/08/25 21:23 21:35 21:40 Temperature 97.9 F Pulse Rate 129 H 113 H Respiratory 24 Rate Blood Pressure 206/151 O2 Sat by Pulse 92 L Oximetry Fraction of 100 Inspired Oxygen (FIO2) 01/08/25 01/08/25 01/08/25 21:46 21:55 22:07 Temperature Pulse Rate 110 H 105 H 101 H Respiratory 25 H 29 H Rate Blood Pressure 212/137 162/116 O2 Sat by Pulse 100 100 Oximetry Fraction of Inspired Oxygen (FIO2) 01/08/25 01/08/25 22:20 23:00 Temperature Pulse Rate 98 90 Respiratory 29 H 25 H Rate Blood Pressure 154/92 122/86 O2 Sat by Pulse 100 99 Oximetry Fraction of Inspired Oxygen (FIO2) EKG Findings - EKG Comments: EKG Findings:: My EKG interpretation: Ventricular rate 58, sinus tachycardia,. 173, QRS 70, QTc 378. No MS prolongation, no QTC prolongation, no ST or T-wave changes noted. EKG compared to January 08, 2022 showing no changes. Overall, this EKG is unremarkable Procedures - Sepsis Sepsis Focused Exam #1 Time Sepsis Criteria Met: 23:13 Sepsis Focused Exam Date: 01/08/25 Sepsis Focused Exam Time: 23:13 Sepsis Focused Exam Complete: Yes Vital Signs & RN Notes Reviewed: Yes Capillary Refill: < 2 Seconds: Fingers, Toes Peripheral Pulses: Normal: Radial (R), Radial (L), Posterior Tibialis (R), Posterior Tibialis (L), Dorsalis Pedis (R), Dorsalis Pedis (L) Skin Color: Normal for Patient Respiratory Exam: wheezes Cardiovascular Exam: regular rate Medical Decision Making - Medical Decision Making Was pt. sent in by a medical professional or institution (Dr., PA, HR REPRESENTATIVE, urgent care, hospital, or group home...) When possible be specific @ -No Did you speak to anyone other than the patient for history (EMS, parent, family, police, friend...)? What history was obtained from this source @ -EMS as described above Did you review nursing and triage notes (agree or disagree)? Why? @ -I reviewed and agree with nursing and triage notes Were old charts reviewed (outside hosp., previous admission, EMS record, old EKG, old radiological studies, urgent care reports/EKG's, group home records)? Report findings @ -No old charts were reviewed Differential Diagnosis (chest pain, altered mental status, abdominal pain women, abdominal pain men, vaginal bleeding, musculoskeletal, weakness, fever, dyspnea, syncope, headache, dizziness, GI bleed, back pain, seizure, CVA, palpatations, mental health)? @ -Differential Dyspnea: Coronary syndrome, arrhythmia, tamponade, asthma, COPD, pulmonary embolism, pneumonia, pneumothorax, pulmonary effusion, anaphylaxis, diabetic ketoacidosis, flailed chest, pulmonary contusion, diaphragmatic rupture, anemia, neuromuscular, this is not meant to be an all-inclusive list. EKG interpreted by me (3pts min.). @ -See above X-rays interpreted by me (1pt min.). @ -Chest x-ray shows new multifocal infiltrates CT interpreted by me (1pt min.). @ -None done U/S interpreted by me (1pt. min.). @ -None done What testing was considered but not performed or refused? (CT, X-rays, U/S, labs)? Why? @ -None What meds were considered but not given or refused? Why? @ -None Was smoking cessation discussed for >3mins.? @ -No Were there social determinants of health that impacted care today? How? (Homelessness, low income, unemployed, alcoholism, drug addiction, transporta tion, low edu. Level, literacy, decrease access to med. care, care home, rehab)? @ -No Was there de-escalation of care discussed even if they declined (Discuss DNR or withdrawal of care, Hospice)? DNR status @ -No What co-morbidities impacted this encounter? (DM, HTN, Smoking, COPD, CAD, Cancer, CVA, ARF, Chemo, Hep., AIDS, mental health diagnosis, sleep apnea, morbid obesity)? @ -COPD Was patient admitted / discharged? Hospital course, mention meds given and route, prescriptions, significant lab abnormalities, going to OR and other pertinent info. @ -44-year-old male presents emergency department with acute respiratory failure. Significant distress at the bedside upon arrival. Diaphoretic tripoding. Placed on BiPAP given breathing treatment magnesium. Reevaluated after several minutes of BiPAP therapy with improvement of symptoms. Repeat lung exam shows improved air exchange. Laboratory evaluation obtained. Leukocytosis 20.1. Erythrocytosis 17.8. Venous blood gas shows pH of 7.17 with pCO2 of 77. Lactic acidosis of 5.1. Rest of labs within acceptable limits. EKG shows diffuse infiltrates concerning for pneumonia. Patient started on pneumonia antibiotics. Will be admitted with consultation to pulmonology clinical presentation does not support diagnosis of sepsis. Lactic acidosis of 5 is not secondary to sepsis but secondary to respiratory failure. He does however have evidence of pneumonia on x-ray. Did you discuss the management of the patient with other professionals (professionals i.e. , PA, HR REPRESENTATIVE, lab, RT, psych nurse, social work program coordinator, environmental services associate, teacher, law enforcement officer, upper caser)? Give summary @ -Case discussed with hospitalist for admission Was critical care preformed (if so, how long)? @ -Yes, 33 minutes for respiratory failure management Undiagnosed new problem with uncertain prognosis? @ -No Drug Therapy requiring intensive monitoring for toxicity (Heparin, Nitro, Insulin, Cardizem)? @ -No Were any procedures done? @ -No Diagnosis/symptom? Acute, or Chronic, or Acute on Chronic? Uncomplicated (without systemic symptoms) or Complicated (systemic symptoms)? @ -Hypercarbic respiratory failure Side effects of treatment? @ -No Exacerbation, Progression, or Severe Exacerbation? @ -No Poses a threat to life or bodily function? How? (Chest pain, [place], [place], pneumonia, PE, COPD, DKA, ARF, appy, cholecystitis, CVA, Diverticulitis, Homicidal, Suicidal, threat to staff... and all critical care pts) @ -yes - Lab Data Result diagrams: 01/08/25 21:31 01/08/25 21:29 Lab Results 01/08/25 01/08/25 01/08/25 Range/Units 21:29 21:29 21:29 WBC (3.8-10.6) k/uL RBC (4.30-5.90) m/uL Hgb (13.0-17.5) gm/dL Hct (39.0-53.0) % MCV (80.0-100.0) fL MCH (25.0-35.0) pg MCHC (31.0-37.0) g/dL RDW (11.5-15.5) % Plt Count (150-450) k/uL MPV Neutrophils % % Lymphocytes % % Monocytes % % Eosinophils % % Basophils % % Neutrophils # (1.3-7.7) k/uL Lymphocytes # (1.0-4.8) k/uL Monocytes # (0-1.0) k/uL Eosinophils # (0-0.7) k/uL Basophils # (0-0.2) k/uL Macrocytosis PT (10.0-12.5) sec INR (<1.2) APTT (22.0-30.0) sec D-Dimer (<0.60) mg/L FEU VBG pH (7.31-7.41) VBG pCO2 (37-51) mmHg VBG HCO3 (24-28) mmol/L Sodium 141 (137-145) mmol/L Potassium 4.7 (3.5-5.1) mmol/L Chloride 99 (98-107) mmol/L Carbon Dioxide 30 (22-30) mmol/L Anion Gap 12 mmol/L BUN 12 (9-20) mg/dL Creatinine 0.69 (0.66-1.25) mg/dL Est GFR (CKD-EPI)AfAm >90 (>60 ml/min/1.73 sqM) Est GFR (CKD-EPI)NonAf >90 (>60 ml/min/1.73 sqM) Glucose 198 H (74-99) mg/dL Plasma Lactic Acid Kyrie 5.1 H* (0.7-2.0) mmol/L Calcium 9.4 (8.4-10.2) mg/dL Total Bilirubin 0.9 (0.2-1.3) mg/dL AST 29 (17-59) U/L ALT 31 (4-49) U/L Alkaline Phosphatase 83 (38-126) U/L Troponin I <0.012 (0.000-0.034) ng/mL NT-Pro-B Natriuret Pep 388 pg/mL Total Protein 7.6 (6.3-8.2) g/dL Albumin 4.7 (3.5-5.0) g/dL Influenza Type A (PCR) (Not Detectd) Influenza Type B (PCR) (Not Detectd) RSV (PCR) (Not Detectd) SARS-CoV-2 (PCR) (Not Detectd) Blood Type Blood Type Confirm Blood Type Recheck Bld Type Recheck Status Antibody Screen Spec Expiration Date 01/08/25 01/08/25 01/08/25 Range/Units 21:29 21:31 21:31 WBC 20.1 H (3.8-10.6) k/uL RBC 5.33 (4.30-5.90) m/uL Hgb 17.8 H (13.0-17.5) gm/dL Hct 54.1 H (39.0-53.0) % MCV 101.4 H (80.0-100.0) fL MCH 33.5 (25.0-35.0) pg MCHC 33.0 (31.0-37.0) g/dL RDW 13.2 (11.5-15.5) % Plt Count 308 (150-450) k/uL MPV 7.8 Neutrophils % 65 % Lymphocytes % 16 % Monocytes % 7 % Eosinophils % 9 % Basophils % 1 % Neutrophils # 13.0 H (1.3-7.7) k/uL Lymphocytes # 3.2 (1.0-4.8) k/uL Monocytes # 1.4 H (0-1.0) k/uL Eosinophils # 1.9 H (0-0.7) k/uL Basophils # 0.1 (0-0.2) k/uL Macrocytosis Slight PT 11.2 (10.0-12.5) sec INR 1.0 (<1.2) APTT 23.5 (22.0-30.0) sec D-Dimer 0.32 (<0.60) mg/L FEU VBG pH 7.17 L* (7.31-7.41) VBG pCO2 77 H* (37-51) mmHg VBG HCO3 28 (24-28) mmol/L Sodium (137-145) mmol/L Potassium (3.5-5.1) mmol/L Chloride (98-107) mmol/L Carbon Dioxide (22-30) mmol/L Anion Gap mmol/L BUN (9-20) mg/dL Creatinine (0.66-1.25) mg/dL Est GFR (CKD-EPI)AfAm (>60 ml/min/1.73 sqM) Est GFR (CKD-EPI)NonAf (>60 ml/min/1.73 sqM) Glucose (74-99) mg/dL Plasma Lactic Acid Kyrie (0.7-2.0) mmol/L Calcium (8.4-10.2) mg/dL Total Bilirubin (0.2-1.3) mg/dL AST (17-59) U/L ALT (4-49) U/L Alkaline Phosphatase (38-126) U/L Troponin I (0.000-0.034) ng/mL NT-Pro-B Natriuret Pep pg/mL Total Protein (6.3-8.2) g/dL Albumin (3.5-5.0) g/dL Influenza Type A (PCR) (Not Detectd) Influenza Type B (PCR) (Not Detectd) RSV (PCR) (Not Detectd) SARS-CoV-2 (PCR) (Not Detectd) Blood Type Blood Type Confirm Blood Type Recheck Bld Type Recheck Status Antibody Screen Spec Expiration Date 01/08/25 01/08/25 01/08/25 Range/Units 21:39 21:39 21:55 WBC (3.8-10.6) k/uL RBC (4.30-5.90) m/uL Hgb (13.0-17.5) gm/dL Hct (39.0-53.0) % MCV (80.0-100.0) fL MCH (25.0-35.0) pg MCHC (31.0-37.0) g/dL RDW (11.5-15.5) % Plt Count (150-450) k/uL MPV Neutrophils % % Lymphocytes % % Monocytes % % Eosinophils % % Basophils % % Neutrophils # (1.3-7.7) k/uL Lymphocytes # (1.0-4.8) k/uL Monocytes # (0-1.0) k/uL Eosinophils # (0-0.7) k/uL Basophils # (0-0.2) k/uL Macrocytosis PT (10.0-12.5) sec INR (<1.2) APTT (22.0-30.0) sec D-Dimer (<0.60) mg/L FEU VBG pH (7.31-7.41) VBG pCO2 (37-51) mmHg VBG HCO3 (24-28) mmol/L Sodium (137-145) mmol/L Potassium (3.5-5.1) mmol/L Chloride (98-107) mmol/L Carbon Dioxide (22-30) mmol/L Anion Gap mmol/L BUN (9-20) mg/dL Creatinine (0.66-1.25) mg/dL Est GFR (CKD-EPI)AfAm (>60 ml/min/1.73 sqM) Est GFR (CKD-EPI)NonAf (>60 ml/min/1.73 sqM) Glucose (74-99) mg/dL Plasma Lactic Acid Kyrie (0.7-2.0) mmol/L Calcium (8.4-10.2) mg/dL Total Bilirubin (0.2-1.3) mg/dL AST (17-59) U/L ALT (4-49) U/L Alkaline Phosphatase (38-126) U/L Troponin I (0.000-0.034) ng/mL NT-Pro-B Natriuret Pep pg/mL Total Protein (6.3-8.2) g/dL Albumin (3.5-5.0) g/dL Influenza Type A (PCR) Not Detected (Not Detectd) Influenza Type B (PCR) Not Detected (Not Detectd) RSV (PCR) Not Detected (Not Detectd) SARS-CoV-2 (PCR) Not Detected (Not Detectd) Blood Type A Positive Blood Type Confirm A Positive Blood Type Recheck No Previous Record Bld Type Recheck Status CABO Indicated Antibody Screen NEGATIVE Spec Expiration Date 01/11/20252338 Disposition Clinical Impression: Respiratory failure, COPD exacerbation Disposition: ADMITTED IP TO THIS HOSP Referrals: Carlos Henry MD [Primary Care Provider] - 1-2 days Decision Time: 23:16
--- NOTE | 2025-01-08 21:45 | XR ---
EXAMINATION TYPE: XR chest 1V portable DATE OF EXAM: 01/08/2025 9:39 PM COMPARISON: 01/12/2023 CLINICAL INDICATION: Male, 44 years old with history of dyspnea, Chest pain TECHNIQUE: Single frontal view of the chest is obtained. FINDINGS: Scattered reticulonodular densities right upper lobe could reflect developing infiltrate. Correlate c linically. The cardiac silhouette size is within normal limits. The osseous structures are intact. IMPRESSION: 1. Scattered reticulonodular densities right upper lobe could reflect developing infiltrate. Correla te clinically. [facility], , 01/08/2025 9:43 PM
[2025-01-08 21:46] LABS: VBG PH 7.17 (7.31-7.41)
[2025-01-08 21:47] LABS: Basophils # (A) 0.1 k/uL (0-0.2); Basophils % (A) 1 %; Eosinophils # (A) 1.9 k/uL (0-0.7); Eosinophils % (A) 9 %; HCT 54.1 % (39.0-53.0); HGB 17.8 gm/dL (13.0-17.5); Lymphocytes # (A) 3.2 k/uL (1.0-4.8); Lymphocytes % (A) 16 %; MCH 33.5 pg (25.0-35.0); MCV 101.4 fL (80.0-100.0); Macrocytosis Slight; Mean Platelet Volume 7.8; Monocytes # (A) 1.4 k/uL (0-1.0); Monocytes % (A) 7 %; Neutrophils % (A) 65 %; Platelet Count 308 k/uL (150-450); RBC 5.33 m/uL (4.30-5.90); RDW 13.2 % (11.5-15.5); WBC 20.1 k/uL (3.8-10.6)
[2025-01-08 21:57] LABS: ALT 31 U/L (4-49); AST 29 U/L (17-59); African American GFR (CKD) >90 (>60 ml/min/1.73 sqM); Albumin 4.7 g/dL (3.5-5.0); Alkaline Phosphatase 83 U/L (38-126); Anion Gap 12 mmol/L; Blood Urea Nitrogen 12 mg/dL (9-20); Calcium 9.4 mg/dL (8.4-10.2); Carbon Dioxide 30 mmol/L (22-30); Chloride 99 mmol/L (98-107); Glucose 198 mg/dL (74-99); Non-African American GFR(CKD) >90 (>60 ml/min/1.73 sqM); Potassium 4.7 mmol/L (3.5-5.1); Sodium 141 mmol/L (137-145); Total Bilirubin 0.9 mg/dL (0.2-1.3); Total Protein 7.6 g/dL (6.3-8.2)
[2025-01-08] MEDS: AZITHROMYCIN 500 MG in SODIUM CHLORIDE 0.9% 250 ML IVPB STA (21:57)
[2025-01-08 22:01] LABS: Partial Thromboplastin Time 23.5 sec (22.0-30.0); Prothrombin Time 11.2 sec (10.0-12.5)
[2025-01-08 22:05] LABS: NT-Pro-B-Type Natriuretic Pept 388 pg/mL
[2025-01-08 22:34] LABS: Influenza A Not Detected (Not Detectd); Influenza B Not Detected (Not Detectd); RSV Not Detected (Not Detectd)
[2025-01-08] MEDS: cefTRIAXone IN SWFI 1,000 MG/10 ML SYRINGE IVP SCH (22:59)
[2025-01-08] MEDS ORDERED: PNEUMONIA PROTOCOL UTILIZED 1 EACH MISC PO PRN (23:08)
[2025-01-09] MEDS ORDERED: DEXTROSE 50% SYRINGE 50 ML IVP PRN ×2 (07:44)
--- NOTE | 2025-01-09 07:50 | P.HPIM ---
History of Present Illness This is a pleasant 44 years old male who is nicotine dependent and he smokes about 1 pack/day presents because of worsening dyspnea of 1 day duration with no chest pain associated with cough and phlegm He smokes 1 pack/day and he was counseled to quit and he agrees but declines nicotine patch. No alcohol or illicit drugs. No specific GI/ symptoms, no headache dizziness weakness numbness. He is afebrile and hemodynamically stable. He is currently on BiPAP with setting of 12/6 and FiO2 of 60% Patient states that he has a history of asthma and COPD but he does not follow- up with pairer and he is not on oxygen at home. Labs showing leukocytosis of 20.1, hemoglobin 17.8. D-dimer is negative at 0.32 pH is low at 7.1 and pCO2 is high at 77 Lactic acid elevated 5.1 came back to normal 1.1 and proBNP 388. EKG showing sinus tachycardia at 115 chest x-ray showing scattered Reticulonodular density in the right upper lobe suspicious for developing pneumonia Patient was started on ceftriaxone and Zithromax and placed on BiPAP Review of Systems Review of systems CONSTITUTIONAL: No fever, no malaise, no fatigue. HEENT: No recent visual problems or hearing problems. Denied any sore throat. CARDIOVASCULAR: No orthopnea, PND, no palpitations, no syncope. PULMONARY: No chest wall tenderness, no hemoptysis. GASTROINTESTINAL: No diarrhea, no nausea, no vomiting, no abdominal pain. Nor moactive bowel sounds. NEUROLOGICAL: No headaches, no weakness, no numbness. HEMATOLOGICAL: Denies any bleeding or petechiae. GENITOURINARY: Denies any burning micturition, frequency, or urgency. MUSCULOSKELETAL/RHEUMATOLOGICAL: Denies any joint pain, swelling, or any muscle pain. ENDOCRINE: Denies any polyuria or polydipsia. Past Medical History Past Medical History: Asthma, COPD, Diabetes Mellitus, GERD/Reflux, Hyperlipidemia, Hypertension, Osteoarthritis (OA), Pneumonia, Sleep Apnea/CPAP/BIPAP Additional Past Medical History / Comment(s): NIDDM type II, neuropathy bilateral legs but pt unsure if d/t diabetes or his back problems, chronic back pain, bronchitis, ESTRELLA without device, covid 08/2021, rectal bleed dt hemorr hoids, sinus issues, bilateral knees will occasionally "give out"/especially L knee. History of Any Multi-Drug Resistant Organisms: None Reported Past Surgical History: Cholecystectomy Additional Past Surgical History / Comment(s): EGD/Colonoscopy, pain clinic procedure Past Anesthesia/Blood Transfusion Reactions: Motion Sickness Additional Past Anesthesia/Blood Transfusion Reaction / Comment(s): adopted- family hx unknown Past Psychological History: ADD/ADHD, Depression Smoking Status: Current every day smoker Past Alcohol Use History: None Reported Past Drug Use History: None Reported - Past Family History Mother History Unknown: Yes Family Medical History: Unable to Obtain Additional Family Medical History / Comment(s): client states he was adopted Father Family Medical History: Unable to Obtain Additional Family Medical History / Comment(s): client states he was adopted Medications and Allergies Home Medications Medication Instructions Recorded Confirmed Type Omeprazole 40 mg PO DAILY 01/08/22 01/09/25 History lisinopriL 40 mg PO DAILY 01/08/22 01/09/25 History Albuterol Inhaler [Ventolin Hfa 2 puff INHALATION RT-QID PRN #1 01/09/22 Rx Inhaler] each Atenolol(Unknown Dose) 1 tab PO DAILY 01/09/25 01/09/25 History Fluticasone/Umeclidin/Vilanter 1 puff INHALATION RT-DAILY 01/09/25 01/09/25 History [Trelegy Ellipta 100-62.5-25] Glipizide(Unknown Dose) 1 tab PO DAILY 01/09/25 01/09/25 History Imdur(Unknown Dose) 1 tab PO DAILY 01/09/25 01/09/25 History Allergies Allergy/AdvReac Type Severity Reaction Status Date / Time No Known Allergies Allergy Verified 01/09/25 07:42 Physical Exam Vitals: Vital Signs Temp Pulse Resp BP Pulse Ox FiO2 01/09/25 06:22 86 20 148/86 91 L 01/09/25 05:00 76 19 148/61 98 01/09/25 03:52 60 01/09/25 03:30 76 18 152/80 98 01/09/25 02:00 69 18 125/113 98 01/09/25 01:00 90 25 H 102/83 100 01/09/25 00:30 75 25 H 135/99 99 01/09/25 00:18 80 01/09/25 00:00 75 25 H 139/80 99 01/08/25 23:30 82 25 H 143/123 99 01/08/25 23:00 90 25 H 122/86 99 01/08/25 22:20 98 29 H 154/92 100 01/08/25 22:07 101 H 29 H 162/116 100 01/08/25 21:55 105 H 25 H 212/137 100 01/08/25 21:46 110 H 01/08/25 21:40 100 01/08/25 21:35 113 H 01/08/25 21:23 97.9 F 129 H 24 206/151 92 L Intake and Output 01/08/25 01/09/25 01/09/25 22:59 06:59 14:59 Other: Weight 158.757 kg -GENERAL: The patient is alert and oriented x3, not in any acute distress. Well developed, well nourished. Obese HEENT: Pupils are round and equally reacting to light. EOMI. No scleral icterus. No conjunctival pallor. Normocephalic, atraumatic. No pharyngeal erythema. No thyromegaly. CARDIOVASCULAR: S1 and S2 present. No murmurs, rubs, or gallops. --PULMONARY: Chest is clear to auscultation, n bilateral expiratory wheezing , no crackles. ABDOMEN: Soft, nontender, nondistended, normoactive bowel sounds. No palpable organomegaly. MUSCULOSKELETAL: No joint swelling or deformity. EXTREMITIES: No cyanosis, clubbing, or pedal edema. NEUROLOGICAL: Gross neurological examination did not reveal any focal deficits. SKIN: No rashes. no petechiae. Results CBC & Chem 7: 01/08/25 21:31 01/08/25 21:29 Labs: Abnormal Lab Results - Last 24 Hours (Table) 01/08/25 01/08/25 01/08/25 Range/Units 21:29 21:29 21:29 WBC (3.8-10.6) k/uL Hgb (13.0-17.5) gm/dL Hct (39.0-53.0) % MCV (80.0-100.0) fL Neutrophils # (1.3-7.7) k/uL Monocytes # (0-1.0) k/uL Eosinophils # (0-0.7) k/uL VBG pH 7.17 L* (7.31-7.41) VBG pCO2 77 H* (37-51) mmHg Glucose 198 H (74-99) mg/dL Plasma Lactic Acid Kyrie 5.1 H* (0.7-2.0) mmol/L 01/08/25 Range/Units 21:31 WBC 20.1 H (3.8-10.6) k/uL Hgb 17.8 H (13.0-17.5) gm/dL Hct 54.1 H (39.0-53.0) % MCV 101.4 H (80.0-100.0) fL Neutrophils # 13.0 H (1.3-7.7) k/uL Monocytes # 1.4 H (0-1.0) k/uL Eosinophils # 1.9 H (0-0.7) k/uL VBG pH (7.31-7.41) VBG pCO2 (37-51) mmHg Glucose (74-99) mg/dL Plasma Lactic Acid Kyrie (0.7-2.0) mmol/L Assessment and Plan Assessment: Right upper lobe pneumonia with leukocytosis Acute hypoxic hypercapnic respiratory failure Acute COPD exacerbation Nicotine dependence Obesity with BMI of 44.9 Plan: Continue with antibiotics ceftriaxone and Zithromax Start gentle hydration Check procalcitonin Start Solu-Medrol Pulmonary team consult Bronchodilator Continue with oxygen therapy/BiPAP as needed Labs and medication were reviewed.. Continue same treatment. Continue with symptomatic treatment. Resume home medication. Monitor labs and vitals. DVT and GI prophylaxis. Further recommendations as per clinical course of the patient DVT prophylaxis: Subcutaneous heparin GI Prophylaxis: Pepcid PT/OT: Pending Prognosis is guarded
[2025-01-09] MEDS: HEPARIN SODIUM,PORCINE 5,000 UNIT/ML 1 ML VIAL SQ SCH (08:20)
[2025-01-09] MEDS: methylPREDNISolone SOD SUCCI 125 MG/2 ML VIAL IV SCH (08:22)
[2025-01-09] MEDS: SODIUM CHLORIDE 0.9% 1,000 ML IV SCH (08:22)
[2025-01-09] MEDS: FAMOTIDINE 20 MG/2 ML VIAL IV SCH (08:26)
[2025-01-09] MEDS: AZITHROMYCIN 500 MG in SODIUM CHLORIDE 0.9% 250 ML IVPB SCH (08:33)
--- NOTE | 2025-01-09 10:44 | XR ---
EXAMINATION TYPE: XR chest 1V portable DATE OF EXAM: 01/09/2025 9:57 AM COMPARISON: Chest radiographs from CLINICAL INDICATION: Male, 44 years old with history of pneumonia; TECHNIQUE: XR chest 1V portable Frontal view of the chest. FINDINGS: Lungs/Pleura: Scattered subtle reticular and hazy opacities. No evidence of pneumothorax, focal conso lidation or pleural effusion. Pulmonary vascularity: Unremarkable. Heart/mediastinum: Cardiomediastinal silhouette is unremarkable. Musculoskeletal: No acute osseous pathology. IMPRESSION: Similar Subtle scattered opacities which may represent an atypical pneumonia. [facility], , 01/09/2025 10:42 AM
[2025-01-09 14:15] LABS: Glucose,Whole Blood 209 mg/dL (70-110)
[2025-01-09] MEDS: INSULIN LISPRO (HumaLOG) 100 UNIT/ML 10 mL VL SQ SCH (15:23)
--- NOTE | 2025-01-09 15:42 | P.CNPUL ---
History of Present Illness Consult date: 01/09/25 Requesting physician: Zoya Carrasquillo Reason for consult: dyspnea, COPD, hypoxemia, abnormal CXR/CT, obstructive sleep apnea Chief complaint: Respiratory failure, pneumonia. History of present illness: Pulmonary consult dated January 09, 2025. 44-year-old obese male, seen in the emergency department, in room 2. The patient was on BiPAP, coming in with a complaint of shortness of breath and respiratory distress. He was brought in by EMS. He apparently has a history of COPD, diabetes, hyperlipidemia, and hypertension. He apparently was initially very short of breath when he first came in, EMS provided him with some Solu- Medrol, CPAP, and 2 breathing treatments. The patient was seen by one of the ER physicians. At that time he denied any chest pain or chest discomfort. The patient also apparently has a history of gastroesophageal reflux disease, and obstructive sleep apnea syndrome, as well as osteoarthritis. The patient is a current every day smoker, and also has a history of ADHD, and depression. The patient was poorly responsive, in the emergency department, which is why he was on the BiPAP device. He had a venous blood gas showing a pCO2 of 77, the pH is 7.17. His BiPAP settings were 12/6, and 50%. He is getting saline at 75 cc an hour. He was given azithromycin and Rocephin empirically. Labs include a white count 20.1, hemoglobin 17.8 hematocrit 54.1 and a platelet count of 308,000. D- dimer was normal. Coagulation studies were normal. Sodium 141, potassium 4.7, chlorides 99, CO2 30, anion gap 12, BUN 12, and creatinine 0.69. His lactic acid initially was 5.1. Repeat was 1.1. N-terminal proBNP was normal troponin was negative. Viral screen was negative. Chest x-ray showed some diffuse scattered densities in the right upper lobe. A follow-up chest x-ray showed similar findings. Review of Systems REVIEW OF SYSTEMS: CONSTITUTIONAL: [Negative.] NEUROLOGIC: [ Negative.] HEENT: [ Negative.] CARDIAC: [Negative.] PULMONARY: Shortness of breath. GI: [Negative.] : [Negative.] RHEUMATOLOGIC: [ Negative.] IMMUNOLOGIC: [ Negative.] ENDOCRINE: [Negative. ] DERMATOLOGIC: [Negative.] Past Medical History Past Medical History: Asthma, COPD, Diabetes Mellitus, GERD/Reflux, H yperlipidemia, Hypertension, Osteoarthritis (OA), Pneumonia, Sleep Apnea/CPAP/BIPAP Additional Past Medical History / Comment(s): NIDDM type II, neuropathy bilateral legs but pt unsure if d/t diabetes or his back problems, chronic back pain, bronchitis, ESTRELLA without device, covid 08/2021, rectal bleed dt hemorrhoids, sinus issues, bilateral knees will occasionally "give out "/especially L knee. History of Any Multi-Drug Resistant Organisms: None Reported Past Surgical History: Cholecystectomy Additional Past Surgical History / Comment(s): EGD/Colonoscopy, pain clinic procedure Past Anesthesia/Blood Transfusion Reactions: Motion Sickness Additional Past Anesthesia/Blood Transfusion Reaction / Comment(s): adopted- family hx unknown Past Psychological History: ADD/ADHD, Depression Smoking Status: Current every day smoker Past Alcohol Use History: None Reported Past Drug Use History: None Reported - Past Family History Mother History Unknown: Yes Family Medical History: Unable to Obtain Additional Family Medical History / Comment(s): client states he was adopted Father Family Medical History: Unable to Obtain Additional Family Medical History / Comment(s): client states he was adopted Medications and Allergies Home Medications Medication Instructions Recorded Confirmed Type Omeprazole 40 mg PO DAILY 01/08/22 01/09/25 History lisinopriL 40 mg PO DAILY 01/08/22 01/09/25 History Albuterol Inhaler [Ventolin Hfa 2 puff INHALATION RT-QID PRN #1 01/09/22 01/09/25 Rx Inhaler] each Fluticasone/Umeclidin/Vilanter 1 puff INHALATION RT-DAILY 01/09/25 01/09/25 History [Shivam Ellipta 100-62.5-25] Isosorbide Mononitrate ER [Imdur] 60 mg PO DAILY 01/09/25 01/09/25 History atenoloL 100 mg PO DAILY 01/09/25 01/09/25 History glipiZIDE XL [Glucotrol Xl] 10 mg PO DAILY 01/09/25 01/09/25 History Allergies Allergy/AdvReac Type Severity Reaction Status Date / Time No Known Allergies Allergy Verified 01/09/25 07:42 Physical Exam Osteopathic Statement: *. No significant issues noted on an osteopathic structural exam other than those noted in the History and Physical/Consult. Vitals: Vital Signs Temp Pulse Resp BP Pulse Ox FiO2 01/09/25 11:18 40 01/09/25 11:01 79 19 97 01/09/25 08:15 72 19 153/87 97 01/09/25 07:49 50 01/09/25 06:22 86 20 148/86 91 L 01/09/25 05:00 76 19 148/61 98 01/09/25 03:52 60 01/09/25 03:30 76 18 152/80 98 01/09/25 02:00 69 18 125/113 98 01/09/25 01:00 90 25 H 102/83 100 01/09/25 00:30 75 25 H 135/99 99 01/09/25 00:18 80 01/09/25 00:00 75 25 H 139/80 99 01/08/25 23:30 82 25 H 143/123 99 01/08/25 23:00 90 25 H 122/86 99 01/08/25 22:20 98 29 H 154/92 100 01/08/25 22:07 101 H 29 H 162/116 100 01/08/25 21:55 105 H 25 H 212/137 100 01/08/25 21:46 110 H 01/08/25 21:40 100 01/08/25 21:35 113 H 01/08/25 21:23 97.9 F 129 H 24 206/151 92 L No acute distress, patient was very somnolent. BiPAP mask in place. The patient was significantly obese. HEENT examination is grossly unremarkable. Neck supple. Full range of motion. No adenopathy thyromegaly or neck vein distention. Cardiovascular examination reveals regular rhythm rate. S1-S2 normal. No S3 or S4. No discernible murmur noted. Heart sounds are distant. Lungs reveal mild scattered rhonchi. No wheezes or crackles. Breath sounds equal. Abdomen obese, without masses or tenderness. Extremities are intact. No cyanosis clubbing or edema. Skin is without rash or lesion. Neurologic examination is difficult to assess. Results - Laboratory Findings CBC and BMP: 01/08/25 21:31 01/08/25 21:29 PT/INR, D-dimer PT 11.2 sec (10.0-12.5) 01/08/25 21:31 INR 1.0 (<1.2) 01/08/25 21:31 D-Dimer 0.32 mg/L FEU (<0.60) 01/08/25 21:31 Abnormal lab findings: Abnormal Labs 01/08/25 01/08/25 01/08/25 21:29 21:29 21:29 WBC Hgb Hct MCV Neutrophils # Monocytes # Eosinophils # VBG pH 7.17 L* VBG pCO2 77 H* Glucose 198 H POC Glucose (mg/dL) Plasma Lactic Acid Kyrie 5.1 H* 01/08/25 01/09/25 21:31 14:13 WBC 20.1 H Hgb 17.8 H Hct 54.1 H MCV 101.4 H Neutrophils # 13.0 H Monocytes # 1.4 H Eosinophils # 1.9 H VBG pH VBG pCO2 Glucose POC Glucose (mg/dL) 209 H Plasma Lactic Acid Kyrie - Diagnostic Findings Chest x-ray: image reviewed Assessment and Plan Assessment: Acute on chronic hypoxemic and hypercapnic respiratory failure, likely multifactorial, in part related to underlying COPD exacerbation, possible right sided pneumonia, as well as sleep apnea syndrome, and possible Pickwickian syndrome. History of COPD. History of hypertension. History of hyperlipidemia. History of diabetes mellitus. Morbid obesity. Ongoing tobacco use with nicotine addiction. History of obstructive sleep apnea syndrome. Possible Pickwickian syndrome. History of neuropathy. History of ADHD/depression. Plan: Plan dated January 09, 2025. The patient is seen in the emergency department, in room 2. The patient was very lethargic and somnolent, and had significant hypercapnic respiratory failure with a pCO2 on venous blood gas of 77 and a pH of 7.17. The patient was on BiPAP, with settings of 12/6, and 50%. He was given azithromycin and Rocephin empirically. A procalcitonin level was checked. The patient is getting saline at 75 cc an hour. Labs, x-rays, medications are reviewed. We will continue to follow the patient, make recommendations along the way. Prognosis is guarded. Time with Patient: Greater than 30
[2025-01-09 16:24] LABS: Glucose,Whole Blood 308 mg/dL (70-110)
[2025-01-09] MEDS ORDERED: ONDANSETRON 4 MG/2 ML VIAL IVP PRN (19:02)
[2025-01-09 19:58] LABS: Glucose,Whole Blood 400 mg/dL (70-110)
[2025-01-09] MEDS: lisinopriL 20 MG TAB PO SCH (20:13)
[2025-01-09] MEDS: ACETAMINOPHEN TAB 325 MG TAB PO PRN (20:13)
[2025-01-10 06:04] LABS: Glucose,Whole Blood 245 mg/dL (70-110)
[2025-01-10 07:49] LABS: Basophils % (A) 0 %; Eosinophils % (A) 0 %; HCT 52.1 % (39.0-53.0); HGB 16.3 gm/dL (13.0-17.5); Lymphocytes # (A) 0.8 k/uL (1.0-4.8); Lymphocytes % (A) 6 %; MCH 32.7 pg (25.0-35.0); MCHC 31.3 g/dL (31.0-37.0); MCV 104.5 fL (80.0-100.0); Macrocytosis Slight; Mean Platelet Volume 8.3; Monocytes # (A) 0.6 k/uL (0-1.0); Monocytes % (A) 5 %; Neutrophils # (A) 12.2 k/uL (1.3-7.7); Neutrophils % (A) 89 %; Platelet Count 278 k/uL (150-450); RBC 4.99 m/uL (4.30-5.90); RDW 13.4 % (11.5-15.5); WBC 13.8 k/uL (3.8-10.6)
[2025-01-10 07:59] LABS: African American GFR (CKD) >90 (>60 ml/min/1.73 sqM); Anion Gap 4 mmol/L; Blood Urea Nitrogen 24 mg/dL (9-20); Calcium 9.2 mg/dL (8.4-10.2); Carbon Dioxide 34 mmol/L (22-30); Chloride 102 mmol/L (98-107); Glucose 235 mg/dL (74-99); Non-African American GFR(CKD) >90 (>60 ml/min/1.73 sqM); Potassium 5.3 mmol/L (3.5-5.1); Sodium 140 mmol/L (137-145)
--- NOTE | 2025-01-10 08:45 | P.PN ---
Subjective This is a pleasant 44 years old male who is nicotine dependent and he smokes about 1 pack/day presents because of worsening dyspnea of 1 day duration with no chest pain associated with cough and phlegm He smokes 1 pack/day and he was counseled to quit and he agrees but declines nicotine patch. No alcohol or illicit drugs. No specific GI/ symptoms, no headache dizziness weakness numbness. He is afebrile and hemodynamically stable. 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 Labs showing leukocytosis of 20.1, hemoglobin 17.8. D-dimer is negative at 0.32 pH is low at 7.1 and pCO2 is high at 77 Lactic acid elevated 5.1 came back to normal 1.1 and proBNP 388. EKG showing sinus tachycardia at 115 chest x-ray showing scattered Reticulonodular density in the right upper lobe suspicious for developing pneumonia Patient was started on ceftriaxone and Zithromax and placed on BiPAP 01/10 Patient remains hypoxic between BiPAP and 5 L oxygen via nasal cannula His chest remains very tight and very minimal air movement in and out with very tight wheezing No chest pain no other new complaint He tolerates diet well and eating 100% of his snacks. Blood pressure on the high side as well as sugar is elevated while he is on steroids. Patient covered with higher insulin sliding scale. Pro- Calcitonin is elevated at 0.48, right upper lobe pneumonia suspected and currently on Zithromax and ceftriaxone. Potassium elevated 5.3 will give one-time dose of Lokelma Review of systems CONSTITUTIONAL: No fever, no malaise, no fatigue. GASTROINTESTINAL: No diarrhea, no nausea, no vomiting, no abdominal pain. Normoactive bowel sounds. NEUROLOGICAL: No headaches, no weakness, no numbness. HEMATOLOGICAL: Denies any bleeding or petechiae. GENITOURINARY: Denies any burning micturition, frequency, or urgency. MUSCULOSKELETAL/RHEUMATOLOGICAL: Denies any joint pain, swelling, or any muscle pain. ENDOCRINE: Denies any polyuria or polydipsia. Active Medications Generic Name Dose Route Start Last Admin Trade Name Freq PRN Reason Stop Dose Admin Acetaminophen 650 mg 01/09/25 18:57 01/09/25 20:13 Acetaminophen Tab 325 Mg Tab PO 650 mg Q6HR PRN Administration Fever and/ or Pain Atenolol 100 mg 01/10/25 09:00 Atenolol 50 Mg Tab PO DAILY J CARLOS Dextrose/Water 25 ml 01/09/25 07:44 Dextrose 50% Syringe 50 Ml IVP PER PROTOCOL PRN Hypoglycemia Protocol Dextrose/Water 50 ml 01/09/25 07:44 Dextrose 50% Syringe 50 Ml IVP PER PROTOCOL PRN Hypoglycemia Protocol Famotidine 20 mg 01/09/25 09:00 01/09/25 20:13 Famotidine 20 Mg/2 Ml Vial IV 20 mg Q12HR J CARLOS Administration Glipizide 5 mg 01/10/25 09:00 Glipizide 5 Mg Tab PO BID J CARLOS Heparin Sodium (Porcine) 5,000 unit 01/09/25 09:00 01/09/25 20:14 Heparin Sodium,Porcine 5,000 Unit/Ml 1 Ml Vial SQ 5,000 unit Q12HR J CARLOS Administration Azithromycin 500 mg/ Sodium 250 mls @ 250 mls/hr 01/09/25 09:00 01/09/25 08:33 Chloride IVPB 01/11/25 08:59 250 mls/hr DAILY J CARLOS Administration Protocol Ceftriaxone Sodium 1 gm/ 50 mls @ 100 mls/hr 01/09/25 22:00 01/10/25 00:09 Sodium Chloride IVPB 100 mls/hr Q24H J CARLOS Administration Protocol Insulin Human Lispro 0 unit 01/09/25 12:30 01/10/25 06:15 Insulin Lispro (Humalog) 100 Unit/Ml 10 Ml Vl SQ 2 unit ACHS J CARLOS Administration Protocol Isosorbide Mononitrate 60 mg 01/10/25 09:00 Isosorbide Mononitrate Er 60 Mg Tab.Er.24h PO DAILY J CARLOS Lisinopril 40 mg 01/09/25 19:00 01/09/25 20:13 Lisinopril 20 Mg Tab PO 40 mg DAILY J CARLOS Administration Methylprednisolone Sodium Succinate 60 mg 01/09/25 07:45 01/10/25 06:15 Methylprednisolone Sod Succi 125 Mg/2 Ml Vial IV 60 mg Q6HR J CARLOS Administration Miscellaneous Information 1 each 01/08/25 23:08 Pneumonia Protocol Utilized 1 Each Misc PO ONCE PRN Per Protocol Ondansetron HCl 4 mg 01/09/25 19:02 Ondansetron 4 Mg/2 Ml Vial IVP Q6HR PRN Nausea And Vomiting Objective - Vital Signs Vital signs: Vital Signs Temp 98.0 F 01/10/25 07:50 Pulse 76 01/10/25 07:50 Resp 18 01/10/25 07:50 BP 167/90 01/10/25 07:50 Pulse Ox 94 L 01/10/25 07:50 FiO2 40 01/09/25 20:26 Intake & Output 01/09/25 01/10/25 01/10/25 18:59 06:59 18:59 Intake Total 236 Output Total 300 2275 Balance -64 -2274 Weight 158.757 kg 147.8 kg Intake: Oral 236 Output: Urine 300 2275 Other: Voiding Method Urinal - Exam -GENERAL: The patient is alert and oriented x3, not in any acute distress. Well developed, well nourished. Morbidly obese HEENT: Pupils are round and equally reacting to light. EOMI. No scleral icterus. No conjunctival pallor. Normocephalic, atraumatic. No pharyngeal erythema. No thyromegaly. CARDIOVASCULAR: S1 and S2 present. No murmurs, rubs, or gallops. PULMONARY: Chest is clear to auscultation, no wheezing , no crackles. ABDOMEN: Soft, nontender, nondistended, normoactive bowel sounds. No palpable organomegaly. MUSCULOSKELETAL: No joint swelling or deformity. EXTREMITIES: No cyanosis, clubbing, or pedal edema. NEUROLOGICAL: Gross neurological examination did not reveal any focal deficits. SKIN: No rashes. no petechiae. - Labs CBC & Chem 7: 01/10/25 07:02 01/10/25 07:02 Labs: Abnormal Lab Results - Last 24 Hours (Table) 01/09/25 01/09/25 01/09/25 Range/Units 14:13 16:22 19:55 WBC (3.8-10.6) k/uL MCV (80.0-100.0) fL Neutrophils # (1.3-7.7) k/uL Lymphocytes # (1.0-4.8) k/uL Potassium (3.5-5.1) mmol/L Carbon Dioxide (22-30) mmol/L BUN (9-20) mg/dL Creatinine (0.66-1.25) mg/dL Glucose (74-99) mg/dL POC Glucose (mg/dL) 209 H 308 H 400 H (70-110) mg/dL 01/10/25 01/10/25 01/10/25 Range/Units 05:50 07:02 07:02 WBC 13.8 H (3.8-10.6) k/uL MCV 104.5 H (80.0-100.0) fL Neutrophils # 12.2 H (1.3-7.7) k/uL Lymphocytes # 0.8 L (1.0-4.8) k/uL Potassium 5.3 H (3.5-5.1) mmol/L Carbon Dioxide 34 H (22-30) mmol/L BUN 24 H (9-20) mg/dL Creatinine 0.65 L (0.66-1.25) mg/dL Glucose 235 H (74-99) mg/dL POC Glucose (mg/dL) 245 H (70-110) mg/dL Assessment and Plan Assessment: Right upper lobe pneumonia with leukocytosis Acute hypoxic hypercapnic respiratory failure Acute COPD exacerbation Nicotine dependence Obesity with BMI of 44.9 Plan: Continue with antibiotics ceftriaxone and Zithromax DC IV fluid procalcitonin mildly elevated S continue with Solu-Medrol which is significant Pulmonary team consult Bronchodilator Continue with oxygen therapy/BiPAP as needed Labs and medication were reviewed.. Continue same treatment. Continue with symptomatic treatment. Resume home medication. Monitor labs and vitals. DVT and GI prophylaxis. Further recommendations as per clinical course of the patient DVT prophylaxis: Subcutaneous heparin GI Prophylaxis: Pepcid PT/OT: Pending Prognosis is guarded
[2025-01-10] MEDS: SODIUM ZIRCONIUM CYCLOSILICATE 10 GM PACKET PO ONE (11:09)
[2025-01-10] MEDS: FAMOTIDINE 20 MG TAB PO SCH (11:09)
[2025-01-10] MEDS: ISOSORBIDE MONONITRATE ER 60 MG TAB.ER.24H PO SCH (11:09)
[2025-01-10] MEDS: glipiZIDE 5 MG TAB PO SCH (11:09)
[2025-01-10] MEDS: atenoloL 50 MG TAB PO SCH (11:09)
--- NOTE | 2025-01-10 11:16 | P.PN ---
Subjective Progress Note Date: 01/10/25 Principal diagnosis: Shortness of breath. Pulmonary consult dated January 09, 2025. 44-year-old obese male, seen in the emergency department, in room 2. The patient was on BiPAP, coming in with a complaint of shortness of breath and respiratory distress. He was brought in by EMS. He apparently has a history of COPD, diabetes, hyperlipidemia, and hypertension. He apparently was initially very short of breath when he first came in, EMS provided him with some Solu- Medrol, CPAP, and 2 breathing treatments. The patient was seen by one of the ER physicians. At that time he denied any chest pain or chest discomfort. The patient also apparently has a history of gastroesophageal reflux disease, and obstructive sleep apnea syndrome, as well as osteoarthritis. The patient is a current every day smoker, and also has a history of ADHD, and depression. The patient was poorly responsive, in the emergency department, which is why he was on the BiPAP device. He had a venous blood gas showing a pCO2 of 77, the pH is 7.17. His BiPAP settings were 12/6, and 50%. He is getting saline at 75 cc an hour. He was given azithromycin and Rocephin empirically. Labs include a white count 20.1, hemoglobin 17.8 hematocrit 54.1 and a platelet count of 308,000. D- dimer was normal. Coagulation studies were normal. Sodium 141, potassium 4.7, chlorides 99, CO2 30, anion gap 12, BUN 12, and creatinine 0.69. His lactic acid initially was 5.1. Repeat was 1.1. N-terminal proBNP was normal troponin was negative. Viral screen was negative. Chest x-ray showed some diffuse sca ttered densities in the right upper lobe. A follow-up chest x-ray showed similar findings. Progress note dated January 10, 2025. 44-year-old male seen yesterday in the emergency department, in consultation. Please see the note above. This patient has a history of multiple medical problems, but we saw him initially for respiratory distress and possible pneumonia. His procalcitonin levels in the normal range at 0.48. He continues on nasal O2 at 4 L. We will discontinue for the time being because of his azithromycin and his Rocephin. The patient was not receiving any IV fluids. We did order chest x-ray for January 11. We have seen his other x-rays here. Current laboratory data includes a white count 13.8, hemoglobin 16.3, hematocrit 52.1, and platelet count of 2 years 78,000. Sodium 140, potassium 5.3, chlorides 102, CO2 34, BUN 24, creatinine 0.65. Glucose was 235. Calcium 9.2. Objective - Vital Signs Vital signs: Vital Signs Temp 98.0 F 01/10/25 07:50 Pulse 92 01/10/25 08:00 Resp 18 01/10/25 08:00 BP 167/90 01/10/25 07:50 Pulse Ox 94 L 01/10/25 07:50 FiO2 40 01/09/25 20:26 Intake & Output 01/09/25 01/10/25 01/10/25 18:59 06:59 18:59 Intake Total 236 180 Output Total 300 2275 Balance -64 -2275 180 Weight 158.757 kg 147.8 kg Intake: Oral 236 180 Output: Urine 300 2275 Other: Voiding Method Urinal Urinal - Exam No acute distress, oriented 3. He can alert. No acute distress. No respiratory distress. Currently on 4 L nasal cannula. HEENT examination is grossly unremarkable. Mucous membranes are moist. No oral lesions. Neck supple. Full range of motion. No adenopathy thyromegaly or neck vein distention. Cardiovascular examination reveals regular rhythm rate. S1-S2 normal. No S3 or S4. No discernible murmur noted. Lungs reveal bilateral rhonchi. Cough is wet and congested. Mild expiratory wheezes. No crackles. Abdomen is very obese. Bowel sounds are noted. No masses or tenderness. Extremities are intact. No cyanosis clubbing or edema. Skin is without rash or lesion. Neurologic examination is brief but nonfocal. - Labs CBC & Chem 7: 01/10/25 07:02 01/10/25 07:02 Labs: Abnormal Lab Results - Last 24 Hours (Table) 01/09/25 01/09/25 01/09/25 Range/Units 14:13 16:22 19:55 WBC (3.8-10.6) k/uL MCV (80.0-100.0) fL Neutrophils # (1.3-7.7) k/uL Lymphocytes # (1.0-4.8) k/uL Potassium (3.5-5.1) mmol/L Carbon Dioxide (22-30) mmol/L BUN (9-20) mg/dL Creatinine (0.66-1.25) mg/dL Glucose (74-99) mg/dL POC Glucose (mg/dL) 209 H 308 H 400 H (70-110) mg/dL 01/10/25 01/10/25 01/10/25 Range/Units 05:50 07:02 07:02 WBC 13.8 H (3.8-10.6) k/uL MCV 104.5 H (80.0-100.0) fL Neutrophils # 12.2 H (1.3-7.7) k/uL Lymphocytes # 0.8 L (1.0-4.8) k/uL Potassium 5.3 H (3.5-5.1) mmol/L Carbon Dioxide 34 H (22-30) mmol/L BUN 24 H (9-20) mg/dL Creatinine 0.65 L (0.66-1.25) mg/dL Glucose 235 H (74-99) mg/dL POC Glucose (mg/dL) 245 H (70-110) mg/dL Assessment and Plan Assessment: Acute on chronic hypoxemic and hypercapnic respiratory failure, likely multifactorial, in part related to underlying COPD exacerbation, possible right sided pneumonia, as well as sleep apnea syndrome, and possible Pickwickian syndrome. History of COPD. History of hypertension. History of hyperlipidemia. History of diabetes mellitus. Morbid obesity. Ongoing tobacco use with nicotine addiction. History of obstructive sleep apnea syndrome. Possible Pickwickian syndrome. History of neuropathy. History of ADHD/depression. Plan: Plan dated January 09, 2025. The patient is seen in the emergency department, in room 2. The patient was very lethargic and somnolent, and had significant hypercapnic respiratory failure with a pCO2 on venous blood gas of 77 and a pH of 7.17. The patient was on BiPAP, with settings of 12/6, and 50%. He was given azithromycin and Jag ephin empirically. A procalcitonin level was checked. The patient is getting saline at 75 cc an hour. Labs, x-rays, medications are reviewed. We will continue to follow the patient, make recommendations along the way. Prognosis is guarded. Plan dated January 10, 2025. The patient is awake and alert. The patient is currently on 4 L. He complains of cough, shortness of breath, chest congestion, and tightness. He did spit up a small amount of sputum which will be sent to the laboratory. His procalcitonin level is in the normal range. The patient's antibiotics will be discontinued for the time being. He continues on 4 L. We ordered a chest x-ray tomorrow, January 11. We will continue to follow. All labs, x-rays, medications are reviewed. Prognosis is guarded. Dictation was produced using [employer] software. Please excuse any grammatical, word or spelling errors. Time with Patient: Less than 30
[2025-01-10 11:55] LABS: Glucose,Whole Blood 305 mg/dL (70-110)
[2025-01-10 17:06] LABS: Glucose,Whole Blood 118 mg/dL (70-110)
[2025-01-10 20:32] LABS: Glucose,Whole Blood 239 mg/dL (70-110)
[2025-01-11 06:19] LABS: Glucose,Whole Blood 269 mg/dL (70-110)
[2025-01-11 06:55] LABS: Basophils % (A) 0 %; Eosinophils % (A) 0 %; HCT 46.9 % (39.0-53.0); HGB 14.9 gm/dL (13.0-17.5); Lymphocytes # (A) 0.9 k/uL (1.0-4.8); Lymphocytes % (A) 7 %; MCH 32.3 pg (25.0-35.0); MCHC 31.7 g/dL (31.0-37.0); MCV 101.6 fL (80.0-100.0); Macrocytosis Slight; Mean Platelet Volume 7.7; Monocytes # (A) 0.6 k/uL (0-1.0); Monocytes % (A) 4 %; Neutrophils # (A) 11.6 k/uL (1.3-7.7); Neutrophils % (A) 88 %; Platelet Count 296 k/uL (150-450); RBC 4.62 m/uL (4.30-5.90); WBC 13.2 k/uL (3.8-10.6)
--- NOTE | 2025-01-11 07:12 | XR ---
EXAMINATION TYPE: XR chest 2V DATE OF EXAM: 01/11/2025 6:24 AM COMPARISON: Multiple radiographs, with the most recent on 01/09/2025 TECHNIQUE: XR chest 2V Frontal and lateral views of the chest. CLINICAL INDICATION:Male, 44 years old with history of Pneumonia; FINDINGS: Lungs/Pleura: There is no evidence of pleural effusion or pneumothorax. Scattered reticular opacities within the left mid and lower lung and right lower lung. Heart/mediastinum: Cardiomediastinal silhouette is stable. Prominence of the bilateral pulmonary hil a suggesting possible pulmonary arterial hypertension. Musculoskeletal: No acute osseous pathology. IMPRESSION: Increasing reticular opacities within the left mid and lower lung and right lower lung. May represent infiltrates versus pulmonary vascular congestion/edema. [facility], , 01/11/2025 7:10 AM
[2025-01-11 07:20] LABS: African American GFR (CKD) >90 (>60 ml/min/1.73 sqM); Anion Gap 2 mmol/L; Blood Urea Nitrogen 23 mg/dL (9-20); Carbon Dioxide 35 mmol/L (22-30); Chloride 101 mmol/L (98-107); Glucose 218 mg/dL (74-99); Non-African American GFR(CKD) >90 (>60 ml/min/1.73 sqM); Potassium 4.8 mmol/L (3.5-5.1); Sodium 138 mmol/L (137-145)
[2025-01-11] MEDS ORDERED: IPRATROPIUM-ALBUTEROL 3 ML NEB INHALATION PRN (09:46)
--- NOTE | 2025-01-11 11:17 | P.PN ---
Subjective Progress Note Date: 01/11/25 Principal diagnosis: Shortness of breath. Pulmonary consult dated January 09, 2025. 44-year-old obese male, seen in the emergency department, in room 2. The patient was on BiPAP, coming in with a complaint of shortness of breath and respiratory distress. He was brought in by EMS. He apparently has a history of COPD, diabetes, hyperlipidemia, and hypertension. He apparently was initially very short of breath when he first came in, EMS provided him with some Solu- Medrol, CPAP, and 2 breathing treatments. The patient was seen by one of the ER physicians. At that time he denied any chest pain or chest discomfort. The patient also apparently has a history of gastroesophageal reflux disease, and obstructive sleep apnea syndrome, as well as osteoarthritis. The patient is a current every day smoker, and also has a history of ADHD, and depression. The patient was poorly responsive, in the emergency department, which is why he was on the BiPAP device. He had a venous blood gas showing a pCO2 of 77, the pH is 7.17. His BiPAP settings were 12/6, and 50%. He is getting saline at 75 cc an hour. He was given azithromycin and Rocephin empirically. Labs include a white count 20.1, hemoglobin 17.8 hematocrit 54.1 and a platelet count of 308,000. D- dimer was normal. Coagulation studies were normal. Sodium 141, potassium 4.7, chlorides 99, CO2 30, anion gap 12, BUN 12, and creatinine 0.69. His lactic acid initially was 5.1. Repeat was 1.1. N-terminal proBNP was normal troponin was negative. Viral screen was negative. Chest x-ray showed some diffuse sca ttered densities in the right upper lobe. A follow-up chest x-ray showed similar findings. Progress note dated January 10, 2025. 44-year-old male seen yesterday in the emergency department, in consultation. Please see the note above. This patient has a history of multiple medical problems, but we saw him initially for respiratory distress and possible pneumonia. His procalcitonin levels in the normal range at 0.48. He continues on nasal O2 at 4 L. We will discontinue for the time being because of his azithromycin and his Rocephin. The patient was not receiving any IV fluids. We did order chest x-ray for January 11. We have seen his other x-rays here. Current laboratory data includes a white count 13.8, hemoglobin 16.3, hematocrit 52.1, and platelet count of 2 years 78,000. Sodium 140, potassium 5.3, chlorides 102, CO2 34, BUN 24, creatinine 0.65. Glucose was 235. Calcium 9.2. Progress note dated January 11, 2025. 44-year-old male seen 2 days ago in consultation. He was initially seen in the emergency department. His procalcitonin level 0.48. The patient is on 4 L by nasal cannula. We add DuoNebs 4 times daily and as needed to his regimen. Current laboratory data includes a white count of 13.2, hemoglobin 14.9, hematocrit 46.9, and a platelet count of 296,000. Sodium 138, potassium 4.8, chlorides 101, CO2 35, BUN 23, and creatinine 0.74. Glucose is 218. Calcium is 9. Chest x-ray shows bilateral opacities, and the bases of both lungs. This could be consistent with either fluid overload, or pneumonia. Objective - Vital Signs Vital signs: Vital Signs Temp 97.9 F 01/11/25 08:25 Pulse 67 01/11/25 08:25 Resp 16 01/11/25 08:25 BP 196/104 01/11/25 08:25 Pulse Ox 93 L 01/11/25 08:25 FiO2 40 01/09/25 20:26 Intake & Output 01/10/25 01/11/25 01/11/25 18:59 06:59 18:59 Intake Total 180 480 Output Total 400 1050 Balance -220 -570 Weight 148.4 kg Intake: Oral 180 480 Output: Urine 400 1050 Other: Voiding Method Urinal Urinal - Exam No acute distress, oriented 3. He can alert. No acute distress. No respiratory distress. Currently on 4 L nasal cannula. HEENT examination is grossly unremarkable. Mucous membranes are moist. No oral lesions. Neck supple. Full range of motion. No adenopathy thyromegaly or neck vein distention. Cardiovascular examination reveals regular rhythm rate. S1-S2 normal. No S3 or S4. No discernible murmur noted. Lungs reveal bilateral rhonchi. Cough is wet and congested. Mild expiratory wheezes. No crackles. Abdomen is very obese. Bowel sounds are noted. No masses or tenderness. Extremities are intact. No cyanosis clubbing or edema. Skin is without rash or lesion. Neurologic examination is brief but nonfocal. - Labs CBC & Chem 7: 01/11/25 06:10 01/11/25 06:10 Labs: Abnormal Lab Results - Last 24 Hours (Table) 01/10/25 01/10/25 01/10/25 Range/Units 07:02 11:54 16:59 WBC (3.8-10.6) k/uL MCV (80.0-100.0) fL Neutrophils # (1.3-7.7) k/uL Lymphocytes # (1.0-4.8) k/uL Carbon Dioxide (22-30) mmol/L BUN (9-20) mg/dL Glucose (74-99) mg/dL POC Glucose (mg/dL) 305 H 118 H (70-110) mg/dL Hemoglobin A1c 8.3 H (<=6.0) % 01/10/25 01/11/25 01/11/25 Range/Units 20:29 06:09 06:10 WBC 13.2 H (3.8-10.6) k/uL MCV 101.6 H (80.0-100.0) fL Neutrophils # 11.6 H (1.3-7.7) k/uL Lymphocytes # 0.9 L (1.0-4.8) k/uL Carbon Dioxide (22-30) mmol/L BUN (9-20) mg/dL Glucose (74-99) mg/dL POC Glucose (mg/dL) 239 H 269 H (70-110) mg/dL Hemoglobin A1c (<=6.0) % 01/11/25 Range/Units 06:10 WBC (3.8-10.6) k/uL MCV (80.0-100.0) fL Neutrophils # (1.3-7.7) k/uL Lymphocytes # (1.0-4.8) k/uL Carbon Dioxide 35 H (22-30) mmol/L BUN 23 H (9-20) mg/dL Glucose 218 H (74-99) mg/dL POC Glucose (mg/dL) (70-110) mg/dL Hemoglobin A1c (<=6.0) % Assessment and Plan Assessment: Acute on chronic hypoxemic and hypercapnic respiratory failure, likely multifactorial, in part related to underlying COPD exacerbation, possible bibasilar pneumonia, as well as sleep apnea syndrome, and possible Pickwickian syndrome. History of COPD. History of hypertension. History of hyperlipidemia. History of diabetes mellitus. Morbid obesity. Ongoing tobacco use with nicotine addiction. History of obstructive sleep apnea syndrome. Possible Pickwickian syndrome. History of neuropathy. History of ADHD/depression. Plan: Plan dated January 09, 2025. The patient is seen in the emergency department, in room 2. The patient was very lethargic and somnolent, and had significant hypercapnic respiratory failure with a pCO2 on venous blood gas of 77 and a pH of 7.17. The patient was on BiPAP, with settings of 12/6, and 50%. He was given azithromycin and Rocephin empirically. A procalcitonin level was checked. The patient is getting saline at 75 cc an hour. Labs, x-rays, medications are reviewed. We will continue to follow the patient, make recommendations along the way. Prognosis is guarded. Plan dated January 10, 2025. The patient is awake and alert. The patient is currently on 4 L. He complains of cough, shortness of breath, chest congestion, and tightness. He did spit up a small amount of sputum which will be sent to the laboratory. His procalcitonin level is in the normal range. The patient's antibiotics will be discontinued for the time being. He continues on 4 L. We ordered a chest x-ray tomorrow, January 11. We will continue to follow. All labs, x-rays, medications are reviewed. Prognosis is guarded. Dictation was produced using [employer] software. Please excuse any grammatical, word or spelling errors. Plan dated January 11, 2025. The patient continues on nasal O2 at 4 L. We add DuoNebs to the patient's regimen today. His procalcitonin level was 0.48 which is in no normal range. Antibiotics were discontinued. He continues on all other appropriate medications. We will continue to follow make recommendations along the way. Labs, x-rays, and medications are reviewed. We will continue to follow. Prognosis is guarded. Dictation was produced using [employer] software. Please excuse any grammatical, word or spelling errors. Time with Patient: Less than 30
--- NOTE | 2025-01-11 11:38 | P.PN ---
Subjective This is a pleasant 44 years old male who is nicotine dependent and he smokes about 1 pack/day presents because of worsening dyspnea of 1 day duration with no chest pain associated with cough and phlegm He smokes 1 pack/day and he was counseled to quit and he agrees but declines nicotine patch. No alcohol or illicit drugs. No specific GI/ symptoms, no headache dizziness weakness numbness. He is afebrile and hemodynamically stable. 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 Labs showing leukocytosis of 20.1, hemoglobin 17.8. D-dimer is negative at 0.32 pH is low at 7.1 and pCO2 is high at 77 Lactic acid elevated 5.1 came back to normal 1.1 and proBNP 388. EKG showing sinus tachycardia at 115 chest x-ray showing scattered Reticulonodular density in the right upper lobe suspicious for developing pneumonia Patient was started on ceftriaxone and Zithromax and placed on BiPAP 01/10 Patient remains hypoxic between BiPAP and 5 L oxygen via nasal cannula His chest remains very tight and very minimal air movement in and out with very tight wheezing No chest pain no other new complaint He tolerates diet well and eating 100% of his snacks. Blood pressure on the high side as well as sugar is elevated while he is on steroids. Patient covered with higher insulin sliding scale. Pro- Calcitonin is elevated at 0.48, right upper lobe pneumonia suspected and currently on Zithromax and ceftriaxone. Potassium elevated 5.3 will give one-time dose of Lokelma 01/11 Patient with no chest pain. His dyspnea is improving He still has wheezing His oxygen requirement is better today down to 4 L/min Antibiotics were discontinued as pro- Calcitonin was negative Continue with IV Solu-Medrol Possible discharge 24 to 48 hours if keeps improving Case was discussed with pulmonary team in details Review of systems CONSTITUTIONAL: No fever, no malaise, no fatigue. GASTROINTESTINAL: No diarrhea, no nausea, no vomiting, no abdominal pain. Normoactive bowel sounds. NEUROLOGICAL: No headaches, no weakness, no numbness. HEMATOLOGICAL: Denies any bleeding or petechiae. GENITOURINARY: Denies any burning micturition, frequency, or urgency. MUSCULOSKELETAL/RHEUMATOLOGICAL: Denies any joint pain, swelling, or any muscle pain. ENDOCRINE: Denies any polyuria or polydipsia. Active Medications Generic Name Dose Route Start Last Admin Trade Name Freq PRN Reason Stop Dose Admin Acetaminophen 650 mg 01/09/25 18:57 01/10/25 21:07 Acetaminophen Tab 325 Mg Tab PO 650 mg Q6HR PRN Administration Fever and/ or Pain Albuterol/Ipratropium 3 ml 01/11/25 12:00 Ipratropium-Albuterol 3 Ml Neb INHALATION RT-QID J CARLOS Albuterol/Ipratropium 3 ml 01/11/25 09:46 Ipratropium-Albuterol 3 Ml Neb INHALATION RT-Q2H PRN Shortness Of Breath Or Wheezing Atenolol 100 mg 01/10/25 09:00 01/11/25 08:51 Atenolol 50 Mg Tab PO 100 mg DAILY J CARLOS Administration Dextrose/Water 25 ml 01/09/25 07:44 Dextrose 50% Syringe 50 Ml IVP PER PROTOCOL PRN Hypoglycemia Protocol Dextrose/Water 50 ml 01/09/25 07:44 Dextrose 50% Syringe 50 Ml IVP PER PROTOCOL PRN Hypoglycemia Protocol Famotidine 20 mg 01/10/25 09:00 01/11/25 08:50 Famotidine 20 Mg Tab PO 20 mg BID J CARLOS Administration Glipizide 5 mg 01/10/25 09:00 01/11/25 08:50 Glipizide 5 Mg Tab PO 5 mg BID J CARLOS Administration Heparin Sodium (Porcine) 5,000 unit 01/09/25 09:00 01/11/25 08:51 Heparin Sodium,Porcine 5,000 Unit/Ml 1 Ml Vial SQ Not Given Q12HR [facility] Insulin Human Lispro 0 unit 01/09/25 12:30 01/11/25 06:35 Insulin Lispro (Humalog) 100 Unit/Ml 10 Ml Vl SQ 12 unit ACHS J CARLOS Administration Protocol Isosorbide Mononitrate 60 mg 01/10/25 09:00 01/11/25 08:50 Isosorbide Mononitrate Er 60 Mg Tab.Er.24h PO 60 mg DAILY J CARLOS Administration Lisinopril 40 mg 01/09/25 19:00 01/11/25 08:50 Lisinopril 20 Mg Tab PO 40 mg DAILY J CARLOS Administration Methylprednisolone Sodium Succinate 60 mg 01/09/25 07:45 01/11/25 06:34 Methylprednisolone Sod Succi 125 Mg/2 Ml Vial IV 60 mg Q6HR J CARLOS Administration Miscellaneous Information 1 each 01/08/25 23:08 Pneumonia Protocol Utilized 1 Each Misc PO ONCE PRN Per Protocol Ondansetron HCl 4 mg 01/09/25 19:02 Ondansetron 4 Mg/2 Ml Vial IVP Q6HR PRN Nausea And Vomiting Objective - Vital Signs Vital signs: Vital Signs Temp 98.8 F 01/11/25 11:25 Pulse 64 01/11/25 11:25 Resp 20 01/11/25 11:34 BP 155/78 01/11/25 11:25 Pulse Ox 97 01/11/25 11:25 FiO2 40 01/09/25 20:26 Intake & Output 01/10/25 01/11/25 01/11/25 18:59 06:59 18:59 Intake Total 180 480 Output Total 400 1050 Balance -220 -570 Weight 148.4 kg Intake: Oral 180 480 Output: Urine 400 1050 Other: Voiding Method Urinal Urinal - Exam -GENERAL: The patient is alert and oriented x3, not in any acute distress. Well developed, well nourished. Morbidly obese HEENT: Pupils are round and equally reacting to light. EOMI. No scleral icterus. No conjunctival pallor. Normocephalic, atraumatic. No pharyngeal erythema. No thyromegaly. CARDIOVASCULAR: S1 and S2 present. No murmurs, rubs, or gallops. PULMONARY: Chest is clear to auscultation, no wheezing , no crackles. ABDOMEN: Soft, nontender, nondistended, normoactive bowel sounds. No palpable organomegaly. MUSCULOSKELETAL: No joint swelling or deformity. EXTREMITIES: No cyanosis, clubbing, or pedal edema. NEUROLOGICAL: Gross neurological examination did not reveal any focal deficits. SKIN: No rashes. no petechiae. - Labs CBC & Chem 7: 01/11/25 06:10 01/11/25 06:10 Labs: Abnormal Lab Results - Last 24 Hours (Table) 01/10/25 01/10/25 01/10/25 Range/Units 07:02 11:54 16:59 WBC (3.8-10.6) k/uL MCV (80.0-100.0) fL Neutrophils # (1.3-7.7) k/uL Lymphocytes # (1.0-4.8) k/uL Carbon Dioxide (22-30) mmol/L BUN (9-20) mg/dL Glucose (74-99) mg/dL POC Glucose (mg/dL) 305 H 118 H (70-110) mg/dL Hemoglobin A1c 8.3 H (<=6.0) % 01/10/25 01/11/25 01/11/25 Range/Units 20:29 06:09 06:10 WBC 13.2 H (3.8-10.6) k/uL MCV 101.6 H (80.0-100.0) fL Neutrophils # 11.6 H (1.3-7.7) k/uL Lymphocytes # 0.9 L (1.0-4.8) k/uL Carbon Dioxide (22-30) mmol/L BUN (9-20) mg/dL Glucose (74-99) mg/dL POC Glucose (mg/dL) 239 H 269 H (70-110) mg/dL Hemoglobin A1c (<=6.0) % 01/11/25 Range/Units 06:10 WBC (3.8-10.6) k/uL MCV (80.0-100.0) fL Neutrophils # (1.3-7.7) k/uL Lymphocytes # (1.0-4.8) k/uL Carbon Dioxide 35 H (22-30) mmol/L BUN 23 H (9-20) mg/dL Glucose 218 H (74-99) mg/dL POC Glucose (mg/dL) (70-110) mg/dL Hemoglobin A1c (<=6.0) % Assessment and Plan Assessment: Right upper lobe pneumonia suspected with leukocytosis. However patient does not have pneumonia. Procalcitonin is negative. Antibiotic was discontinued Acute hypoxic hypercapnic respiratory failure Acute COPD exacerbation Nicotine dependence Obesity with BMI of 44.9 Plan: Co discontinue antibiotics ceftriaxone and Zithromax per pulmonary team recommendation DC IV fluid procalcitonin not elevated per pulmonary team. continue with Solu-Medrol which is significant Pulmonary team consult Bronchodilator Continue with oxygen therapy/BiPAP as needed Labs and medication were reviewed.. Continue same treatment. Continue with symptomatic treatment. Resume home medication. Monitor labs and vitals. DVT and GI prophylaxis. Further recommendations as per clinical course of the patient DVT prophylaxis: Subcutaneous heparin GI Prophylaxis: Pepcid PT/OT: Pending Prognosis is guarded
[2025-01-11 11:47] LABS: Glucose,Whole Blood 240 mg/dL (70-110)
[2025-01-11] MEDS: IPRATROPIUM-ALBUTEROL 3 ML NEB INHALATION SCH (15:59)
[2025-01-11 16:45] LABS: Glucose,Whole Blood 295 mg/dL (70-110)
[2025-01-11 20:17] LABS: Glucose,Whole Blood 366 mg/dL (70-110)
[2025-01-12 06:08] LABS: Glucose,Whole Blood 288 mg/dL (70-110)
[2025-01-12] MEDS: amLODIPine 10 MG TAB PO SCH (10:48)
[2025-01-12 11:31] LABS: Glucose,Whole Blood 281 mg/dL (70-110)
[2025-01-12 11:43] VITALS: RESP 17; TEMP 98
--- NOTE | 2025-01-12 12:48 | P.PN ---
Subjective Progress Note Date: 01/12/25 Principal diagnosis: Shortness of breath. Pulmonary consult dated January 09, 2025. 44-year-old obese male, seen in the emergency department, in room 2. The patient was on BiPAP, coming in with a complaint of shortness of breath and respiratory distress. He was brought in by EMS. He apparently has a history of COPD, diabetes, hyperlipidemia, and hypertension. He apparently was initially very short of breath when he first came in, EMS provided him with some Solu- Medrol, CPAP, and 2 breathing treatments. The patient was seen by one of the ER physicians. At that time he denied any chest pain or chest discomfort. The patient also apparently has a history of gastroesophageal reflux disease, and obstructive sleep apnea syndrome, as well as osteoarthritis. The patient is a current every day smoker, and also has a history of ADHD, and depression. The patient was poorly responsive, in the emergency department, which is why he was on the BiPAP device. He had a venous blood gas showing a pCO2 of 77, the pH is 7.17. His BiPAP settings were 12/6, and 50%. He is getting saline at 75 cc an hour. He was given azithromycin and Rocephin empirically. Labs include a white count 20.1, hemoglobin 17.8 hematocrit 54.1 and a platelet count of 308,000. D- dimer was normal. Coagulation studies were normal. Sodium 141, potassium 4.7, chlorides 99, CO2 30, anion gap 12, BUN 12, and creatinine 0.69. His lactic acid initially was 5.1. Repeat was 1.1. N-terminal proBNP was normal troponin was negative. Viral screen was negative. Chest x-ray showed some diffuse sca ttered densities in the right upper lobe. A follow-up chest x-ray showed similar findings. Progress note dated January 10, 2025. 44-year-old male seen yesterday in the emergency department, in consultation. Please see the note above. This patient has a history of multiple medical problems, but we saw him initially for respiratory distress and possible pneumonia. His procalcitonin levels in the normal range at 0.48. He continues on nasal O2 at 4 L. We will discontinue for the time being because of his azithromycin and his Rocephin. The patient was not receiving any IV fluids. We did order chest x-ray for January 11. We have seen his other x-rays here. Current laboratory data includes a white count 13.8, hemoglobin 16.3, hematocrit 52.1, and platelet count of 2 years 78,000. Sodium 140, potassium 5.3, chlorides 102, CO2 34, BUN 24, creatinine 0.65. Glucose was 235. Calcium 9.2. Progress note dated January 11, 2025. 44-year-old male seen 2 days ago in consultation. He was initially seen in the emergency department. His procalcitonin level 0.48. The patient is on 4 L by nasal cannula. We add DuoNebs 4 times daily and as needed to his regimen. Current laboratory data includes a white count of 13.2, hemoglobin 14.9, hematocrit 46.9, and a platelet count of 296,000. Sodium 138, potassium 4.8, chlorides 101, CO2 35, BUN 23, and creatinine 0.74. Glucose is 218. Calcium is 9. Chest x-ray shows bilateral opacities, and the bases of both lungs. This could be consistent with either fluid overload, or pneumonia. Progress note dated January 12, 2025. 44-year-old male seen a couple days ago in consultation. He is seen today in room 361. He is on room air. He is not receiving any IV fluids. His procalcitonin level was 0.48 which is in the normal range. Will discontinue the Solu-Medrol, and start him on prednisone orally. We also add Symbicort to his regimen. He does state that he is breathing better, but still feels like he has a way to go. No new labs today other than a glucose of 281. Objective - Vital Signs Vital signs: Vital Signs Temp 98 F 01/12/25 11:42 Pulse 60 01/12/25 12:33 Resp 17 01/12/25 11:42 BP 198/99 01/12/25 11:42 Pulse Ox 99 01/12/25 11:42 FiO2 40 01/09/25 20:26 Intake & Output 01/11/25 01/12/25 01/12/25 18:59 06:59 18:59 Intake Total 118 Balance 118 Weight 148.2 kg Intake: Oral 118 Other: Voiding Method Urinal Urinal # Voids 4 - Exam No acute distress, oriented 3. He can alert. No acute distress. No respiratory distress. Currently on 4 L nasal cannula. HEENT examination is grossly unremarkable. Mucous membranes are moist. No oral lesions. Neck supple. Full range of motion. No adenopathy thyromegaly or neck vein distention. Cardiovascular examination reveals regular rhythm rate. S1-S2 normal. No S3 or S4. No discernible murmur noted. Lungs reveal scattered bilateral mild to moderate rhonchi and wheezes. Breath sounds are equal. No crackles are noted. Abdomen is very obese. Bowel sounds are noted. No masses or tenderness. Extremities are intact. No cyanosis clubbing or edema. Skin is without rash or lesion. Neurologic examination is brief but nonfocal. - Labs CBC & Chem 7: 01/11/25 06:10 01/11/25 06:10 Labs: Abnormal Lab Results - Last 24 Hours (Table) 01/11/25 01/11/25 01/12/25 Range/Units 16:41 20:15 06:07 POC Glucose (mg/dL) 295 H 366 H 288 H (70-110) mg/dL 01/12/25 Range/Units 11:30 POC Glucose (mg/dL) 281 H (70-110) mg/dL Assessment and Plan Assessment: Acute on chronic hypoxemic and hypercapnic respiratory failure, likely multifactorial, in part related to underlying COPD exacerbation, possible bibasilar pneumonia, as well as sleep apnea syndrome, and possible Pickwickian syndrome. History of COPD. History of hypertension. History of hyperlipidemia. History of diabetes mellitus. Morbid obesity. Ongoing tobacco use with nicotine addiction. History of obstructive sleep apnea syndrome. Possible Pickwickian syndrome. History of neuropathy. History of ADHD/depression. Plan: Plan dated January 09, 2025. The patient is seen in the emergency department, in room 2. The patient was very lethargic and somnolent, and had significant hypercapnic respiratory failure with a pCO2 on venous blood gas of 77 and a pH of 7.17. The patient was on BiPAP, with settings of 12/6, and 50%. He was given azithromycin and Rocephin empirically. A procalcitonin level was checked. The patient is getting saline at 75 cc an hour. Labs, x-rays, medications are reviewed. We will continue to follow the patient, make recommendations along the way. Prognosis is guarded. Plan dated January 10, 2025. The patient is awake and alert. The patient is currently on 4 L. He complains of cough, shortness of breath, chest congestion, and tightness. He did spit up a small amount of sputum which will be sent to the laboratory. His procalcitonin level is in the normal range. The patient's antibiotics will be discontinued for the time being. He continues on 4 L. We ordered a chest x-ray tomorrow, January 11. We will continue to follow. All labs, x-rays, medications are reviewed. Prognosis is guarded. Dictation was produced using [employer] software. Please excuse any grammatical, word or spelling errors. Plan dated January 11, 2025. The patient continues on nasal O2 at 4 L. We add DuoNebs to the patient's regimen today. His procalcitonin level was 0.48 which is in no normal range. Antibiotics were discontinued. He continues on all other appropriate medications. We will continue to follow make recommendations along the way. Labs, x-rays, and medications are reviewed. We will continue to follow. Prognosis is guarded. Dictation was produced using [employer] software. Please excuse any grammatical, word or spelling errors. Plan dated January 12, 2025. The patient is seen today in room 361. He is currently on room air. He is not receiving any IV fluids. His procalcitonin level was 0.48 which is in the normal range. His Solu-Medrol was changed to prednisone 40 mg a day. We add some Symbicort to his regimen, to help him with additional wheezing and rhonchi that he has. Labs, x-rays, and all medications are reviewed. We will continue to follow. From our perspective, the patient could be considered for possible discharge. Dictation was produced using [employer] software. Please excuse any grammatical, word or spelling errors. Time with Patient: Less than 30
[2025-01-12 13:18] VITALS: BP 172/89
[2025-01-12] MEDS: hydrALAZINE HCL 25 MG TAB PO SCH (14:39)
[2025-01-12 16:20] VITALS: PULSE 61
[2025-01-12] MEDS ORDERED: SYMBICORT 160-4.5 MCG INHALER INHALATION SCH (20:00)
--- NOTE | 2025-01-12 21:41 | P.DS ---
Providers Date of admission: 01/08/25 23:10 Attending physician: Zoya Carrasquillo Consults: 01/08/25 23:08 Consult Physician Routine Consulting Provider: Claudette White Consult Reason/Comments: pneumonia, copd Do you want consulting provider notified?: Yes Primary care physician: Carlos Henry Hospital Course: Diagnoses: Right upper lobe pneumonia suspected with leukocytosis. However patient does not have pneumonia. Procalcitonin is negative. Antibiotic was discontinued per pulmonary team recommendation Acute hypoxic hypercapnic respiratory failure, resolved. Patient does not qualify for home oxygen upon discharge Acute COPD exacerbation, improved significantly Nicotine dependence Obesity with BMI of 44.9 Hospital course: This is a pleasant 44 years old male who is nicotine dependent and he smokes about 1 pack/day presents because of worsening dyspnea of 1 day duration with no chest pain associated with cough and phlegm He smokes 1 pack/day and he was counseled to quit and he agrees but declines nicotine patch. Patient was diagnosed with acute COPD exacerbation related to his nicotine dependence. Evaluated by pulmonary service he was placed on IV Solu-Medrol and bronchial t dilator reatment. He was on 5 L oxygen on admission. Pneumonia on admission was suspected but patient with no fever or leukocytosis significantly improved and thought also secondary to steroid effect. Procalcitonin was negative and antibiotic were discontinued per pulmonary team recommendation. Patient showed interval improvement and today he was on room air, wheezing significantly improved although not completely resolved. Patient was eager to go home today. Bedside nurse Ann contact me that patient was cleared for discharge by Dr. Paula to go home today. We evaluated for home oxygen and patient does not qualify or need. Patient was counseled extensively to quit smoking and he agrees. He denies any other symptoms. His blood pressure was elevated but improving. Prior to discharge hydralazine 25 mg twice daily was added. Patient did not want to check his blood pressure again as he was eager to go home because of his commitment to work as per bedside nurse Ann. Patient was cleared for discharge by pulmonary service as above Problems and management plan were discussed with the patient and he verbalized understanding and acceptance Patient was found stable and can be discharged home in guarded prognosis however he needs follow-up as an outpatient. Patient was instructed to follow up with PCP within one week and patient agrees Patient was instructed to follow-up with Dr. Grant in 1 to 2 weeks after discharge and he agrees Physical exam -Gen: patient is a AAOx3, no distress. Obese CVS: S1-S2, RRR, no murmur -Lungs: B/L CTA, mild scattered wheezing, significantly improved Abdomen: soft, no distention, no tenderness, positive bowel sounds Extremity: no leg edema or induration Time spent more than 35 minutes Patient Condition at Discharge: Stable Plan - Discharge Summary Discharge Rx Participant: No New Discharge Prescriptions: New hydrALAZINE HCL [Apresoline] 25 mg PO BID #60 tab predniSONE 10 mg PO DIRECTED #40 tab Continue Omeprazole 40 mg PO DAILY Albuterol Inhaler [Ventolin Hfa Inhaler] 2 puff INHALATION RT-QID PRN #1 each PRN Reason: Shortness Of Breath Fluticasone/Umeclidin/Vilanter [Trelegy Ellipta 100-62.5-25] 1 puff INHALATION RT-DAILY glipiZIDE XL [Glucotrol XL] 10 mg PO DAILY atenoloL 100 mg PO DAILY Isosorbide Mononitrate ER [Imdur] 60 mg PO DAILY lisinopriL 40 mg PO DAILY Discharge Medication List Omeprazole 40 mg PO DAILY 01/08/22 [History] Albuterol Inhaler [Ventolin Hfa Inhaler] 2 puff INHALATION RT-QID PRN #1 each 01/09/22 [Rx] Fluticasone/Umeclidin/Vilanter [Trelegy Ellipta 100-62.5-25] 1 puff INHALATION RT-DAILY 01/09/25 [History] Isosorbide Mononitrate ER [Imdur] 60 mg PO DAILY 01/09/25 [History] atenoloL 100 mg PO DAILY 01/09/25 [History] glipiZIDE XL [Glucotrol XL] 10 mg PO DAILY 01/09/25 [History] lisinopriL 40 mg PO DAILY 01/11/25 [History] hydrALAZINE HCL [Apresoline] 25 mg PO BID #60 tab 01/12/25 [Rx] predniSONE 10 mg PO DIRECTED #40 tab 01/12/25 [Rx] Follow up Appointment(s)/Referral(s): Candelario Grant DO [Doctor of Osteopathic Medicine] - 2 Weeks Carlos Henry MD [Primary Care Provider] - 1-2 days Activity/Diet/Wound Care/Special Instructions: Heart healthy diet, low carbohydrate diet Activity is restricted till you see your doctor Monitor your blood pressure with your doctor Discharge Disposition: HOME SELF-CARE
[2025-01-13] MEDS ORDERED: predniSONE 20 MG TAB PO SCH (09:00)
== END 2025-01-12 15:52 | disposition home or self-care (01) | DRG 190 ==
LOC: EC 21:21 → 3SCARD 23:10
PROVIDERS: ADMIT Hospitalist; ATTEND Hospitalist
PROC: 5A09357 Assistance with Respiratory Ventilation, Less than 24 Consecutive Hours, Continuous Positive Airway Pressure (ICD-10-PCS; principal; 2025-01-08)
DX: J44.1 Chronic obstructive pulmonary disease with (acute) exacerbation (principal); J96.21 Acute and chronic respiratory failure with hypoxia; J96.22 Acute and chronic respiratory failure with hypercapnia; E66.2 Morbid (severe) obesity with alveolar hypoventilation; E11.42 Type 2 diabetes mellitus with diabetic polyneuropathy; J44.89 Other specified chronic obstructive pulmonary disease; I10 Essential (primary) hypertension; F32.A Depression, unspecified; Z68.41 Body mass index [BMI] 40.0-44.9, adult; E87.20 Acidosis, unspecified; E11.65 Type 2 diabetes mellitus with hyperglycemia; E78.5 Hyperlipidemia, unspecified; K21.9 Gastro-esophageal reflux disease without esophagitis; F17.210 Nicotine dependence, cigarettes, uncomplicated; T38.0X5A Adverse effect of glucocorticoids and synthetic analogues, initial encounter; F90.9 Attention-deficit hyperactivity disorder, unspecified type; E87.5 Hyperkalemia; Z79.84 Long term (current) use of oral hypoglycemic drugs; Z79.51 Long term (current) use of inhaled steroids; Z79.899 Other long term (current) drug therapy
CPT/HCPCS: 36415; 71045; 71046; 80048; 80053; 82803; 83036; 83605; 83880; 84145; 84484; 85025; 85379; 85610; 85730; 86850; 86900; 86901; 87636; 93005; 94640; 94660; 94760; 96361; 96365; 96366; 96367; 96368; 96372; 96375; 96376; 99291